=== PATIENT | male | born 1970 | race Caucasian/White ===

== ENCOUNTER 2022-07-15 16:18 | Inpatient (IN) | payer BC ==
[2022-07-15 18:03] LABS: Glucose,Whole Blood 145 mg/dL (70-110)
--- NOTE | 2022-07-15 18:06 | CT ---
EXAMINATION TYPE: CT brain wo con for TPA DATE OF EXAM: 07/15/2022 COMPARISON: None HISTORY: Neuro deficit, acute, stroke suspected CT DLP: 1236.6 mGycm Automated exposure control for dose reduction was used. Images of the brain obtained without contrast. Ventricles have normal size. There is no mass effect or midline shift. No sign of intracranial hemorr hope. The calvarium is intact. There is normal aeration of the mastoid sinuses. IMPRESSION: Negative unenhanced head CT scan.
[2022-07-15 18:26] LABS: INR 1.1 (<1.2); Partial Thromboplastin Time 27.7 sec (22.0-30.0); Prothrombin Time 11.5 sec (9.0-12.0)
[2022-07-15 18:28] LABS: Basophils # (A) 0.1 k/uL (0-0.2); Basophils % (A) 0 %; Eosinophils % (A) 0 %; HCT 44.6 % (39.0-53.0); HGB 15.5 gm/dL (13.0-17.5); Hyperchromasia Slight; Lymphocytes # (A) 1.6 k/uL (1.0-4.8); Lymphocytes % (A) 10 %; MCH 30.6 pg (25.0-35.0); MCHC 34.7 g/dL (31.0-37.0); Mean Platelet Volume 10.8; Monocytes # (A) 0.6 k/uL (0-1.0); Monocytes % (A) 4 %; Neutrophils # (A) 12.8 k/uL (1.3-7.7); Neutrophils % (A) 85 %; Platelet Count 152 k/uL (150-450); RBC 5.07 m/uL (4.30-5.90); RDW 13.3 % (11.5-15.5); WBC 15.2 k/uL (3.8-10.6)
--- NOTE | 2022-07-15 18:34 | CT ---
EXAMINATION TYPE: CT angio head neck DATE OF EXAM: 07/15/2022 COMPARISON: None HISTORY: Neuro deficit, acute, stroke suspected CT DLP: 665.7 mGycm Automated exposure control for dose reduction was used. CONTRAST: Performed with IV Contrast, patient injected with 65 mL of Isovue 370. Images obtained from the aortic arch to the vertex of the brain with the IV contrast. There are Three -D postprocessed images. There is left pleural effusion. There is airspace consolidation in the left midlung field. There is n ormal branching pattern of the great vessels on the aortic arch. There is arterial flow in both subcl lola arteries. There is arterial flow in the common internal and external carotid arteries bilateral ly. There is fairly wide patency of the carotid artery bifurcations. There is arterial flow in both v ertebral arteries. There is arterial flow in the vertebrobasilar artery system. No evidence of caroti d or vertebral artery aneurysm or dissection. No evidence of stenosis. There is arterial flow in the anterior middle and posterior cerebral arteries bilaterally. No mass ef fect. No evidence of intracranial aneurysm or neovascularity. There is normal enhancement of the veno us sinuses. No evidence of intracranial hemodynamic arterial stenosis. IMPRESSION: Negative CT angiogram of the neck. Negative CT angiogram of the brain. Left-sided extensive airspace pneumonia.
--- NOTE | 2022-07-15 18:35 | XR ---
EXAMINATION TYPE: XR chest 2V DATE OF EXAM: 07/15/2022 COMPARISON: NONE HISTORY: Altered mental status TECHNIQUE: 2 views FINDINGS: There is extensive infiltrates in the lower lung velez and more on the left side. There is some pulmonary vascular congestion. There are chest leads. IMPRESSION: Extensive pulmonary infiltrates that could be developing RDS. Congestive heart failure al so possible.
[2022-07-15] MEDS ORDERED: ACETAMINOPHEN TAB 500 MG TAB PO STA (18:39)
[2022-07-15 18:42] LABS: Albumin 3.4 g/dL (3.5-5.0); Calcium 7.6 mg/dL (8.4-10.2); Total Bilirubin 1.3 mg/dL (0.2-1.3); Total Protein 6.3 g/dL (6.3-8.2)
[2022-07-15] MEDS ORDERED: SODIUM CHLORIDE 0.9% 1,000 ML IV ONE (19:01)
[2022-07-15 19:15] LABS: Amorphous Sediment,Urine Occasional /hpf; Appearance,Urine Cloudy (Clear); Bacteria,Urine Rare /hpf; Bilirubin,Urine Negative (Negative); Blood,Urine Large (Negative); Color,Urine Yellow; Glucose,Urine (UA) Negative (Negative); Granular Casts,Urine 11 /lpf (0); Ketones,Urine Trace (Negative); Leukocyte Esterase,Urine Negative (Negative); Mucus,Urine Many /hpf; Nitrite,Urine Negative (Negative); Protein,Urine 2+ (Negative); RBC,Urine 5 /hpf (0-5); Specific Gravity,Urine 1.034 (1.001-1.035); Squamous Epithelial Cell,Urine 2 /hpf (0-4); Urobilinogen,Urine <2.0 mg/dL (<2.0); WBC,Urine 9 /hpf (0-5)
[2022-07-15 19:26] LABS: Amphetamine Screen,Urine Not Detected (NotDetected); Barbiturate Screen,Urine Not Detected (NotDetected); Benzodiazepines Screen,Urine Not Detected (NotDetected); Cocaine Screen,Urine Not Detected (NotDetected); Methadone Screen, Urine Not Detected (NotDetected); Opiate Screen,Urine Not Detected (NotDetected); Oxycodone Screen, Urine Not Detected (NotDetected); Phencyclidine Screen,Urine Not Detected (NotDetected); Tricyclic Antidepressant,Urine Not Detected (NotDetected); Urn Cannabinoid Scrn Not Detected (NotDetected)
[2022-07-15] MEDS ORDERED: KETOROLAC 15 MG/ML 1 ML VIAL IVP STA (20:02)
[2022-07-15] MEDS ORDERED: NALOXONE 0.4 MG/ML 1 ML VIAL IV PRN (21:37)
[2022-07-15] MEDS ORDERED: CEFEPIME 2 GM in SODIUM CHLORIDE 0.9% 100 ML IVPB STA (21:37)
--- NOTE | 2022-07-15 21:55 | ED ---
General Adult HPI - General Chief complaint: Altered Mental Status Stated complaint: AMS Time Seen by Provider: 07/15/22 16:30 Source: patient, EMS Mode of arrival: EMS Limitations: altered mental status - History of Present Illness Initial comments: This is a 52-year-old male who presents emergency department via EMS and police after was determined that the, police captain precinct was [place] on the [place] and he was swerving, not pulling lower immediately. 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 The patient was triaged however did not see the patient immediately but after approximately 50 minutes of the patient's sitting in the emergency department, I did have a with the patient and he was altered, ANO 2. The patient was having expressive aphasia and it was noted the patient's cell phone was locked out indicating that he did not know his own [place] to his phone several times. The patient himself but he was in [place] and did not understand that he was in [place]. The patient stated that he was driving home from work and it was only thing he knew. The patient was having difficulty with speaking but denied of any obvious deficits noted. The patient was overall poor story and cannot provide any further history at this time. It was however reported the patient was diagnosed with COVID-19 and was admitted to the hospital and was initially discharged. - Related Data Home Medications Medication Instructions Recorded Confirmed No Known Home Medications 07/15/22 07/15/22 Allergies Allergy/AdvReac Type Severity Reaction Status Date / Time No Known Allergies Allergy Verified 07/15/22 17:42 Review of Systems ROS Statement: Those systems with pertinent positive or pertinent negative responses have been documented in the HPI. ROS Other: All systems not noted in ROS Statement are negative. Past Medical History Past Medical History: No Reported History History of Any Multi-Drug Resistant Organisms: None Reported Past Surgical History: No Surgical Hx Reported Past Psychological History: No Psychological Hx Reported Smoking Status: Never smoker Past Alcohol Use History: None Reported Past Drug Use History: None Reported General Exam Limitations: altered mental status (ANOx2) General appearance: alert, in no apparent distress Head exam: Present: atraumatic, normocephalic, normal inspection Eye exam: Present: normal appearance, PERRL Pupils: Present: normal accommodation ENT exam: Present: normal exam, normal oropharynx, mucous membranes moist Neck exam: Present: normal inspection, full ROM Respiratory exam: Present: normal lung sounds bilaterally Cardiovascular Exam: Present: normal rhythm, tachycardia, normal heart sounds GI/Abdominal exam: Present: soft, normal bowel sounds Extremities exam: Present: normal inspection, full ROM Back exam: Present: normal inspection, full ROM Neurological exam: Present: alert, altered (ANOx2, expressive aphasia noted), CN II-XII intact Psychiatric exam: Present: normal affect, normal mood Skin exam: Present: warm, dry Course Vital Signs 07/15/22 07/15/22 07/15/22 16:20 17:45 18:00 Temperature 100.0 F H 103.1 F H 103.2 F H Pulse Rate 119 H 110 H 105 H Respiratory 22 18 24 Rate Blood Pressure 130/78 119/74 139/75 O2 Sat by Pulse 92 L 91 L 92 L Oximetry 07/15/22 07/15/22 07/15/22 18:45 19:00 19:15 Temperature Pulse Rate 125 H 117 H 114 H Respiratory 24 18 20 Rate Blood Pressure 135/74 127/68 118/76 O2 Sat by Pulse 92 L 92 L 94 L Oximetry 07/15/22 07/15/22 07/15/22 19:35 20:12 21:13 Temperature 102.9 F H 99.9 F H 98.0 F Pulse Rate 108 H 98 89 Respiratory 24 22 18 Rate Blood Pressure 130/66 116/72 106/69 O2 Sat by Pulse 93 L 93 L 94 L Oximetry EKG Findings - EKG Comments: EKG Findings:: In EKG was obtained and was interpreted by myself showing a rate of 111, ND interval 140, QRS duration of 102 and QTC of 335. This EKG showed showed sinus tachycardia without any ST segment elevation or depression noted. Medical Decision Making - Medical Decision Making Was pt. sent in by a medical professional or institution (, PA, BAILIFF, urgent care, hospital, or fci...) When possible be specific @ -No Did you speak to anyone other than the patient for history (EMS, parent, family, police, friend...)? What history was obtained from this source @ -Yes, EMS Did you review nursing and triage notes (agree or disagree)? Why? @ -I reviewed and agree with nursing and triage notes Were old charts reviewed (outside hosp., previous admission, EMS record, old EKG, old radiological studies, urgent care reports/EKG's, fci records)? Report findings @ -No old charts were reviewed Differential Diagnosis (chest pain, altered mental status, abdominal pain women, abdominal pain men, vaginal bleeding, weakness, fever, dyspnea, syncope, head ache, dizziness, GI bleed, back pain, seizure, CVA, palpatations, mental health)? @ -Acute CVA, alcohol intoxication, substance abuse EKG interpreted by me (3pts min.). @ -As above X-rays interpreted by me (1pt min.). @ -Chest x-ray was obtained and was interpreted by myself showing extensive pulmonary infiltrates that could be developing RDS or congestive heart failure is also possible. The patient only had intermittent mild shortness of breath but was not complaining of any shortness of breath on my evaluation. CT interpreted by me (1pt min.). @ -CT head and CTA of the head and neck per stroke protocol was obtained and showed no acute process and was negative. U/S interpreted by me (1pt. min.). @ -None done What testing was considered but not performed or refused? (CT, X-rays, U/S, labs)? Why? @ -None What meds were considered but not given or refused? Why? @ -None Did you discuss the management of the patient with other professionals (professionals i.e. , PA, BAILIFF, lab, RT, psych nurse, mental health social worker, lawyer real estate, teacher, chief medical officer, rn case management)? Give summary @ -Yes, admitting physician Was smoking cessation discussed for >3mins.? @ -No Was critical care preformed (if so, how long)? @ -Yes, see above Were there social determinants of health that impacted care today? How? (Homelessness, low income, unemployed, alcoholism, drug addiction, transportation, low edu. Level, literacy, decrease access to med. care, retirement, rehab)? @ -No Was there de-escalation of care discussed even if they declined (Discuss DNR or withdrawal of care, Hospice)? DNR status @ -No What co-morbidities impacted this encounter? (DM, HTN, Smoking, COPD, CAD, Cancer, CVA, ARF, Chemo, Hep., AIDS, mental health diagnosis, sleep apnea, morbid obesity)? @ -None Was patient admitted / discharged? Hospital course, mention meds given and route, prescriptions, significant lab abnormalities, going to OR and other pertinent info. @ -The patient was seen and evaluated. Initially on evaluation, the patient was altered and because it was no known last known normal, the patient had a code stroke called at 1742 with an initial NIH of 3. Workup was obtained and was negative for a stroke however the chest x-ray showed significant fluid on his lungs. The patient had initial cold waited infection last week and had an elevated fever. The patient also had elevated white blood cell count consistent with likely pneumonia. The patient was given antibiotics including vancomycin and cefepime for healthcare associated pneumonia as the patient was recently admitted for his COVID-19. The patient continued to remain stable however altered. The patient was accepted for admission by Dr. Wyatt as the patient did have a primary care physician. The neuro interventional list, Dr. Carvalho was contacted at [phone] and it was agreed that no TB would be given as there was no baseline known. The patient continued be closely monitored observed and both neurology and infectious disease will be placed on consult. The patient was told of this and was agreeable. The patient was admitted in stable condition. The patient also is known to have hyponatremia and hypokalemia and both were cor rected in the emergency department. Undiagnosed new problem with uncertain prognosis? @ -No Drug Therapy requiring intensive monitoring for toxicity (Heparin, Nitro, Insulin, Cardizem)? @ -No Were any procedures done? @ -No Diagnosis/symptom? @ -Altered mental status, rule out CVA Acute, or Chronic, or Acute on Chronic? @ -Acute Uncomplicated (without systemic symptoms) or Complicated (systemic symptoms)? @ -Complicated Side effects of treatment? @ -No Exacerbation, Progression, or Severe Exacerbation? @ -No Poses a threat to life or bodily function? How? (Chest pain, USA, DC, pneumonia, PE, COPD, DKA, ARF, appy, cholecystitis, CVA, Diverticulitis, Homicidal, Suicidal, threat to staff... and all critical care pts) @ -No Diagnosis/symptom? @ -Healthcare associated pneumonia Acute, or Chronic, or Acute on Chronic? @ -Acute Uncomplicated (without systemic symptoms) or Complicated (systemic symptoms)? @ -Complicated Side effects of treatment? @ -none Exacerbation, Progression, or Severe Exacerbation] @ -no Poses a threat to life or bodily function? @ -Yes, worsening infection Diagnosis/symptom? @ -Hypokalemia, hyponatremia Acute, or Chronic, or Acute on Chronic? @ -Acute Uncomplicated (without systemic symptoms) or Complicated (systemic symptoms)? @ -Uncomplicated Side effects of treatment? @ -none Exacerbation, Progression, or Severe Exacerbation] @ -no Poses a threat to life or bodily function? @ -Yes, can worsen and cause cardiac dysfunction - Lab Data Result diagrams: 07/15/22 17:43 07/15/22 17:43 Lab Results 07/15/22 07/15/22 07/15/22 Range/Units 17:43 17:43 17:43 WBC 15.2 H (3.8-10.6) k/uL RBC 5.07 (4.30-5.90) m/uL Hgb 15.5 (13.0-17.5) gm/dL Hct 44.6 (39.0-53.0) % MCV 88.0 (80.0-100.0) fL MCH 30.6 (25.0-35.0) pg MCHC 34.7 (31.0-37.0) g/dL RDW 13.3 (11.5-15.5) % Plt Count 152 (150-450) k/uL MPV 10.8 Neutrophils % 85 % Lymphocytes % 10 % Monocytes % 4 % Eosinophils % 0 % Basophils % 0 % Neutrophils # 12.8 H (1.3-7.7) k/uL Lymphocytes # 1.6 (1.0-4.8) k/uL Monocytes # 0.6 (0-1.0) k/uL Eosinophils # 0.0 (0-0.7) k/uL Basophils # 0.1 (0-0.2) k/uL Hyperchromasia Slight PT 11.5 (9.0-12.0) sec INR 1.1 (<1.2) APTT 27.7 (22.0-30.0) sec Sodium 126 L (137-145) mmol/L Potassium 3.0 L (3.5-5.1) mmol/L Chloride 92 L (98-107) mmol/L Carbon Dioxide 22 (22-30) mmol/L Anion Gap 12 mmol/L BUN 31 H (9-20) mg/dL Creatinine 1.52 H (0.66-1.25) mg/dL Est GFR (CKD-EPI)AfAm 61 (>60 ml/min/1.73 sqM) Est GFR (CKD-EPI)NonAf 53 (>60 ml/min/1.73 sqM) Glucose 136 H (74-99) mg/dL POC Glucose (mg/dL) (70-110) mg/dL POC Glu Cassandra Architect ID Calcium 7.6 L (8.4-10.2) mg/dL Total Bilirubin 1.3 (0.2-1.3) mg/dL AST 123 H (17-59) U/L ALT 61 H (4-49) U/L Alkaline Phosphatase 68 (38-126) U/L Troponin I (0.000-0.034) ng/mL Total Protein 6.3 (6.3-8.2) g/dL Albumin 3.4 L (3.5-5.0) g/dL Urine Color Urine Appearance (Clear) Urine pH (5.0-8.0) Ur Specific [place] (1.001-1.035) Urine Protein (Negative) Urine Glucose (UA) (Negative) Urine Ketones (Negative) Urine Blood (Negative) Urine Nitrite (Negative) Urine Bilirubin (Negative) Urine Urobilinogen (<2.0) mg/dL Ur Leukocyte Esterase (Negative) Urine RBC (0-5) /hpf Urine WBC (0-5) /hpf Ur Squamous Epith Cells (0-4) /hpf Amorphous Sediment (None) /hpf Urine Bacteria (None) /hpf Granular Casts (0) /lpf Urine Mucus (None) /hpf Urine Opiates Screen (NotDetected) Ur Oxycodone Screen (NotDetected) Urine Methadone Screen (NotDetected) Ur Propoxyphene Screen (NotDetected) Ur Barbiturates Screen (NotDetected) U Tricyclic Antidepress (NotDetected) Ur Phencyclidine Scrn (NotDetected) Ur Amphetamines Screen (NotDetected) U Methamphetamines Scrn (NotDetected) U Benzodiazepines Scrn (NotDetected) Urine Cocaine Screen (NotDetected) U Marijuana (THC) Screen (NotDetected) 07/15/22 07/15/22 07/15/22 Range/Units 17:43 17:51 18:00 WBC (3.8-10.6) k/uL RBC (4.30-5.90) m/uL Hgb (13.0-17.5) gm/dL Hct (39.0-53.0) % MCV (80.0-100.0) fL MCH (25.0-35.0) pg MCHC (31.0-37.0) g/dL RDW (11.5-15.5) % Plt Count (150-450) k/uL MPV Neutrophils % % Lymphocytes % % Monocytes % % Eosinophils % % Basophils % % Neutrophils # (1.3-7.7) k/uL Lymphocytes # (1.0-4.8) k/uL Monocytes # (0-1.0) k/uL Eosinophils # (0-0.7) k/uL Basophils # (0-0.2) k/uL Hyperchromasia PT (9.0-12.0) sec INR (<1.2) APTT (22.0-30.0) sec Sodium (137-145) mmol/L Potassium (3.5-5.1) mmol/L Chloride (98-107) mmol/L Carbon Dioxide (22-30) mmol/L Anion Gap mmol/L BUN (9-20) mg/dL Creatinine (0.66-1.25) mg/dL Est GFR (CKD-EPI)AfAm (>60 ml/min/1.73 sqM) Est GFR (CKD-EPI)NonAf (>60 ml/min/1.73 sqM) Glucose (74-99) mg/dL POC Glucose (mg/dL) 145 H (70-110) mg/dL POC Glu Cassandra Architect ID Purvi Guadarrama Calcium (8.4-10.2) mg/dL Total Bilirubin (0.2-1.3) mg/dL AST (17-59) U/L ALT (4-49) U/L Alkaline Phosphatase (38-126) U/L Troponin I 0.028 (0.000-0.034) ng/mL Total Protein (6.3-8.2) g/dL Albumin (3.5-5.0) g/dL Urine Color Yellow Urine Appearance Cloudy (Clear) Urine pH 6.0 (5.0-8.0) Ur Specific [place] 1.034 (1.001-1.035) Urine Protein 2+ H (Negative) Urine Glucose (UA) Negative (Negative) Urine Ketones Trace H (Negative) Urine Blood Large H (Negative) Urine Nitrite Negative (Negative) Urine Bilirubin Negative (Negative) Urine Urobilinogen <2.0 (<2.0) mg/dL Ur Leukocyte Esterase Negative (Negative) Urine RBC 5 (0-5) /hpf Urine WBC 9 H (0-5) /hpf Ur Squamous Epith Cells 2 (0-4) /hpf Amorphous Sediment Occasional H (None) /hpf Urine Bacteria Rare H (None) /hpf Granular Casts 11 (0) /lpf Urine Mucus Many H (None) /hpf Urine Opiates Screen Not Detected (NotDetected) Ur Oxycodone Screen Not Detected (NotDetected) Urine Methadone Screen Not Detected (NotDetected) Ur Propoxyphene Screen Not Detected (NotDetected) Ur Barbiturates Screen Not Detected (NotDetected) U Tricyclic Antidepress Not Detected (NotDetected) Ur Phencyclidine Scrn Not Detected (NotDetected) Ur Amphetamines Screen Not Detected (NotDetected) U Methamphetamines Scrn Not Detected (NotDetected) U Benzodiazepines Scrn Not Detected (NotDetected) Urine Cocaine Screen Not Detected (NotDetected) U Marijuana (THC) Screen Not Detected (NotDetected) Critical Care Time Critical Care Time: Yes Total Critical Care Time: 36 Disposition Clinical Impression: Altered mental status, CVA (cerebral vascular accident), HCAP (healthcare-a ssociated pneumonia), Hyponatremia, Hypokalemia Disposition: ADMITTED IP TO THIS [facility] Condition: Stable Is patient prescribed a controlled substance at d/c from ED?: No Referrals: None,Stated [Primary Care Provider] - 1-2 days Time of Disposition: 20:00 Decision to Admit Reason: Admit from EC Decision Date: 07/15/22 Decision Time: 20:00
[2022-07-15] MEDS: POTASSIUM CHLORIDE 10 MEQ in WATER FOR INJECTION 1 100ML.BAG IVPB SCH ×2 (22:22→23:32)
[2022-07-15] MEDS ORDERED: VANCOMYCIN 2,000 MG in SODIUM CHLORIDE 0.9% 500 ML 500 ML IVPB ONE (22:30)
[2022-07-16] MEDS ORDERED: VANCOMYCIN IV PER PHARMACY 1 EACH MISC MISCELLANE PRN (00:44)
[2022-07-16] MEDS: SODIUM CHLORIDE 0.9% 1,000 ML IV SCH ×3 (00:59→16:39)
[2022-07-16] MEDS: POTASSIUM CHLORIDE 10 MEQ in WATER FOR INJECTION 1 100ML.BAG IVPB SCH ×2 (01:05→02:03)
[2022-07-16 02:10] LABS: VBG PH 7.36 (7.31-7.41)
--- NOTE | 2022-07-16 03:21 | CT ---
EXAMINATION TYPE: CT chest wo con DATE OF EXAM: 07/16/2022 COMPARISON: None HISTORY: AMS. Covid. CT DLP: 490.4 mGycm Automated exposure control for dose reduction was used. Images obtained from the thoracic inlet to the diaphragm without contrast. There is extensive airspace consolidation in the left lung. There is left pleural effusion. There is airspace consolidation right lower lobe posteriorly. Heart is slightly enlarged. No pericardial effus ion. There is no mediastinal adenopathy. There are no hilar masses. The thoracic spine is intact. Sternum is intact. The upper abdominal soft tissues are intact. There is contrast in the kidneys from recent contrast ex am. IMPRESSION: Extensive airspace pulmonary infiltrates which are more on the left side. This could relate to RDS.
[2022-07-16] MEDS ORDERED: methylPREDNISolone SOD SUCCI 40 MG/ML 1 ML VIAL IV SCH (08:00)
[2022-07-16] MEDS ORDERED: BUDESONIDE 1 MG/2 ML NEBU INHALATION SCH (08:00)
[2022-07-16] MEDS ORDERED: CEFEPIME 2 GM in SODIUM CHLORIDE 0.9% 100 ML IVPB SCH (09:00)
[2022-07-16] MEDS: ACYCLOVIR SODIUM 800 MG in SODIUM CHLORIDE 0.9% 250 ML IVPB SCH ×2 (12:10→20:41)
--- NOTE | 2022-07-16 12:14 | P.CNNES ---
History of Present Illness Consult date: 07/16/22 Requesting physician: Bandar Tejeda Reason for Consult: AMS, CVA History of Present Illness: This is a 52-year-old gentleman who presented to the emergency department because of speech difficulty, shortness of breath with cough and fever. Some of the history is obtained from the EMR. Patient stated that for the past 1 week he has been having coughs as well as has been having fever and right frontal headache. He stated the headache was mild and it was over the right frontal region but he could not describe the other type of headache and denies any radiation. Denies any photophobia, phonophobia, nausea or vomiting. He denies any visual disturbance. He denies any neck pain. Yesterday he noticed that the he's having some speech difficulty. Currently he denies of any headache. He denies any sick contacts. Denies any rash. Denies any focal weakness, numbness. He feels his gait is unsteady walking. Denies any head trauma. Denies any seizure like activities that he is aware of. Per the ED note and mentioned, is seems to the post officer was following the patient on the express[place] and the patient was swerving and not pulling immediately. In and was felt to the patient was altered. Was felt the patient was having expressive aphasia. According to the ED the patient was reported the patient was diagnosed with Covid and was admitted to the hospital was initially discharged. According to patient he is not aware that he had Covid-19 recently and last Covid-19 infection was about a year ago. He stated that he took a home test and it was negative for COVID-19. She denies history of stroke in the past. I was notified very later by his nurse that patient is homosexual which he he wanted to share with us if helps with work-up. Some of the workup during his hospital visit consisted of: Patient has been febrile on presentation with a T-max of 103.2 He's tachycardic highest of 125 but currently the its 88. Pulse ox recorded the lowest was 91% he's been tachypneic of highest of 29. White blood cell is 15.2 thousand and predominantly neutrophilic Sodium is 126, potassium 3.0, BUN 31 and a creatinine is 1.52, initial serum glucose is 136, calcium 7.6 AST of 123 and ALT of 61. Urine drug screen is negative Code stroke was activated by the ED team. Per the ED the NIH stroke scale was a 3. CT of the head is reported as negative unenhanced head CT scan CT angiography of the head and neck was reported as negative. Left-sided extensive air space pneumonia. Per ED they spoke with stroke attending (Dr. Carvalho) and no IV TPA since unknown last normal state. And it was felt the risk outweighed the benefit of given TPA CT of chest is reported as extensive air space pulmonary infiltrates was are more on the left side. This could relate to the RDS. Review of Systems Review of system: The 12 point system was reviewed and apparent positive and negative per HPI. Past Medical History Past Medical History: No Reported History History of Any Multi-Drug Resistant Organisms: None Reported Past Surgical History: No Surgical Hx Reported Past Psychological History: No Psychological Hx Reported Smoking Status: Never smoker Past Alcohol Use History: None Reported Past Drug Use History: None Reported - Past Family History Brother(s) Family Medical History: Cancer Mother Additional Family Medical History / Comment(s): CABG Medications and Allergies Home Medications Medication Instructions Recorded Confirmed Type No Known Home Medications 07/15/22 07/15/22 History Allergies Allergy/AdvReac Type Severity Reaction Status Date / Time No Known Allergies Allergy Verified 07/15/22 17:42 Physical Examination - Vital Signs Vital Signs: Vital Signs Temp Pulse Pulse Resp BP BP Pulse Ox 07/16/22 11:05 99 25 H 123/81 94 L 07/16/22 10:19 98.9 F 29 H 07/16/22 08:02 92 26 H 07/16/22 07:46 90 26 H 112/75 97 07/16/22 07:36 88 16 07/16/22 07:29 87 16 97 07/16/22 05:30 72 18 114/74 95 07/16/22 04:30 78 18 116/79 94 L 07/16/22 03:00 77 18 115/80 97 07/16/22 01:00 76 18 121/81 95 07/16/22 00:18 78 18 114/81 98 07/15/22 23:36 97.9 F 79 20 115/80 94 L 07/15/22 22:25 80 17 119/77 94 L 07/15/22 21:13 98.0 F 89 18 106/69 94 L 07/15/22 20:12 99.9 F H 98 22 116/72 93 L 07/15/22 19:35 102.9 F H 108 H 24 130/66 93 L 07/15/22 19:15 114 H 20 118/76 94 L 07/15/22 19:00 117 H 18 127/68 92 L 07/15/22 18:45 125 H 24 135/74 92 L 07/15/22 18:00 103.2 F H 105 H 24 139/75 92 L 07/15/22 17:45 103.1 F H 110 H 18 119/74 91 L 07/15/22 16:20 100.0 F H 119 H 22 130/78 92 L Intake and Output 07/15/22 07/16/22 07/16/22 22:59 06:59 14:59 Intake Total 540 Balance 540 Intake: Oral 540 Other: Voiding Method Toilet # Bowel Movements 1 Weight 90.718 kg 82.72 kg GENERAL: The patient is lying in bed and is not in acute distress. CHEST: The heart rate is regular rate rhythm. No murmurs to auscultation. LUNG: Wheezing throughout and that is without even without ausculation. Is tachypneic and appear short of breath. ABDOMEN/GI: Bowel sounds present in all 4 quadrants. No tenderness to palpation throughout. NEUROLOGICAL: Higher mental function: The patient is awake, alert, oriented to self, place and time. Patient is following simple commands. Is having wording finding difficulty. Difficulty with repetition. No neglect. Cranial nerves: The pupils are round, equal and reactive to light and accommodation. Visual velez are full to confrontation throughout. Extraocular movement is intact no nystagmus is noted. Facial sensation is normal to touch throughout. The facial strength is normal throughout. Hearing is normal bilaterally to hand rub. Tongue is midline and moved [id number] without any difficulty. At time has nasal toned. Shoulder shrug is normal bilaterally. Motor: Gait is attempted but very unsteady walking. The strength is 5 over 5 throughout. Normal tone and bulk. Cerebellum: Normal finger to nose bilaterally. Sensation: Sensation is normal to touch throughout. Reflexes (right/left): 2+ throughout. Plantars are downgoing bilaterally. Results - Laboratory Findings CBC and BMP: 07/15/22 17:43 07/16/22 16:15 Abnormal Lab Findings: Abnormal Labs 07/15/22 07/15/22 07/15/22 17:43 17:43 17:51 WBC 15.2 H Neutrophils # 12.8 H VBG HCO3 Sodium 126 L Potassium 3.0 L Chloride 92 L BUN 31 H Creatinine 1.52 H Glucose 136 H POC Glucose (mg/dL) Calcium 7.6 L AST 123 H ALT 61 H Albumin 3.4 L Urine Protein 2+ H Urine Ketones Trace H Urine Blood Large H Urine WBC 9 H Amorphous Sediment Occasional H Urine Bacteria Rare H Urine Mucus Many H 07/15/22 07/16/22 18:00 01:37 WBC Neutrophils # VBG HCO3 21 L Sodium Potassium Chloride BUN Creatinine Glucose POC Glucose (mg/dL) 145 H Calcium AST ALT Albumin Urine Protein Urine Ketones Urine Blood Urine WBC Amorphous Sediment Urine Bacteria Urine Mucus Assessment and Plan Assessment: Expressive aphasia for past two days with unsteady gait with headache for past one week: Rule out stroke vs brain mass vs ?due to underlying central infections. Currently headache has resolved Fever, leukocytosis with cough for past one week: Appears underlying pneumonia. Rule out central infection. Encephalopathy due to sepsis and appears underlying pneumonia. Also patient has underlying metabolic encephalopathy. Hyponatremia Hypoactive Leamy Acute kidney insufficiency that AST slightly elevated and ALT Plan: I ordered MRI of the brain with and without stat In the ED the patient was started on cefepime 2 g every 12 hours as well as vancomycin. I stopped at the cefepime and change it to ceftriaxone 2 g every 12 hours, continue vancomycin and I started the patient on acyclovir 10mg/kg every 8 hours for meninoencephalitis coverarage. I consulted pain specialist for lumbar puncture. I ordered a routine EEG because of his confusion. Ordered TSH, ammonia level I ordered HIV test and RPR to rule out any infection that can result to his condition and I have notified patient and he is in agreement of pursuing them. I will not start the patient on antiplatelets until MRI Brain is back to assess if truly stroke or other central process. If stroke will get rest of stroke work-up. Consulted PT, OT and [employer]. Neuro checks On cardiac monitoring I.D. is consulted. I recommend patient to be transferred to ICU for close monitoring with pulmonary team consulted. Patient is tachypneic and very short of breath, hypoxic. I spoke with ICU team regarding this patient. Will defer the rest of medical management to primary team. The plan is discussed in detailed with patient and his nurse. I went back and had lengthy discussion with patient's family members who are at bedside. Thank you for consultation Time spent on case is 35 minutes: Going over history, reviewing labs/imaging and going over plan. Time with Patient: Greater than 30
--- NOTE | 2022-07-16 14:21 | MR ---
EXAMINATION TYPE: MR brain wo/w con DATE OF EXAM: 07/16/2022 1:28 PM CLINICAL INDICATION:Male, 52 years old with history of altered mental status; COMPARISON: Brain 07/15/2022 TECHNIQUE: Multi planar, multi sequence imaging was performed through the brain including: T1, T2, In version recovery, susceptibility weighted imaging and gradient echo imaging and Diffusion weighted im aging. The patient was then given intravenous contrast and multi planar, T1 fat-saturation images wer e obtained. IV Contrast: 8 cc Gadavist FINDINGS: The coreas-white junctions, ventricular system, basal cisterns appear unremarkable. Diffusion-weighted imaging shows no evidence of restricted diffusion to suggest acute/subacute infarct. Intracranial art erial flow voids are maintained. Midline structures show no abnormality. Scattered foci of high T2 si gnal intensity are seen within the periventricular white matter and deep white matter with a more etta e focal asymmetric left parietal lobe region. The susceptibility weighted images do not reveal any ev idence for micro-hemorrhage. After administration of gadolinium, no abnormal enhancement is seen. The bone marrow signal is within normal limits. Paranasal sinuses and mastoid air cells: Mild scattered paranasal sinus disease. Visualized orbits: Orbital contents are intact. IMPRESSION: 1. No evidence of intracranial mass, acute/subacute infarct, or abnormal enhancement. 2. Nonspecific white matter changes with a more asymmetric left parietal region area.
[2022-07-16 14:23] LABS: T4, Free (Free Thyroxine) 1.95 ng/dL (0.78-2.19)
--- NOTE | 2022-07-16 14:33 | P.CONS ---
History of Present Illness - Reason for Consult Consult date: 07/16/22 - History of Present Illness Patient is a 52-year-old male who was brought into the ER via EMS and police after apparently the patient was noticed to be altered mentally when he was stopped by the transit authority police officer patient apparently was followed by the transit authority police officer on the expressway as the patient was receiving and not pulling immediately but no accident has happened, patient on ER evaluation mention that the patient was on her way home from work and he thought he was in [place] not sure what he was doing in [place] on, when asked specifically for the patient and he denies any headache to me or URI symptoms has been complaining of some shortness of breath he was noticed to have some cough or no specifically he denied it or any sputum production no nausea no vomiting no abdominal pain or any diarrhea The patient on presentation to the hospital did have a fever of 103.1F, patient is afebrile this morning the patient was mildly hypoxic with O2 sats of 92% is currently 94% on 3 L nasal cannula, patient did have white of 15.2 with a left shift, did have elevated BUN and creatinine potassium was slightly low did have elevated liver enzymes, urine has been negative, patient urine drug screen was n egative, patient did have a negative influenza RSV and covid PCR, patient did have a negative CT of the brain for any bleeding chest x-ray with extensive pulmonary infiltrate that was confirmed on CT of the chest patient did receive cefepime and vancomycin in the ER last night patient has been evaluated by neurologist before meals and the patient be started on Rocephin and vancomycin and acyclovir apparently planning for LP, patient overall elevated good historian so most information has been instructed from review the chart Past Medical History Past Medical History: No Reported History History of Any Multi-Drug Resistant Organisms: None Reported Past Surgical History: No Surgical Hx Reported Past Psychological History: No Psychological Hx Reported Smoking Status: Never smoker Past Alcohol Use History: None Reported Past Drug Use History: None Reported Medications and Allergies Home Medications Medication Instructions Recorded Confirmed Type No Known Home Medications 07/15/22 07/15/22 History Allergies Allergy/AdvReac Type Severity Reaction Status Date / Time No Known Allergies Allergy Verified 07/15/22 17:42 Physical Exam Vitals: Vital Signs Temp Pulse Pulse Resp BP BP Pulse Ox 07/16/22 11:05 99 25 H 123/81 94 L 07/16/22 10:19 98.9 F 29 H 07/16/22 08:02 92 26 H 07/16/22 07:46 90 26 H 112/75 97 07/16/22 07:36 88 16 07/16/22 07:29 87 16 97 07/16/22 05:30 72 18 114/74 95 07/16/22 04:30 78 18 116/79 94 L 07/16/22 03:00 77 18 115/80 97 07/16/22 01:00 76 18 121/81 95 07/16/22 00:18 78 18 114/81 98 07/15/22 23:36 97.9 F 79 20 115/80 94 L 07/15/22 22:25 80 17 119/77 94 L 07/15/22 21:13 98.0 F 89 18 106/69 94 L 07/15/22 20:12 99.9 F H 98 22 116/72 93 L 07/15/22 19:35 102.9 F H 108 H 24 130/66 93 L 07/15/22 19:15 114 H 20 118/76 94 L 07/15/22 19:00 117 H 18 127/68 92 L 07/15/22 18:45 125 H 24 135/74 92 L 07/15/22 18:00 103.2 F H 105 H 24 139/75 92 L 07/15/22 17:45 103.1 F H 110 H 18 119/74 91 L 07/15/22 16:20 100.0 F H 119 H 22 130/78 92 L Intake and Output 07/15/22 07/16/22 07/16/22 22:59 06:59 14:59 Intake Total 540 Balance 540 Intake: Oral 540 Other: Voiding Method Toilet # Bowel Movements 1 Weight 90.718 kg 82.72 kg Results CBC & Chem 7: 07/15/22 17:43 07/15/22 17:43 Labs: Abnormal Lab Results - Last 24 Hours (Table) 07/15/22 07/15/22 07/15/22 Range/Units 17:43 17:43 17:51 WBC 15.2 H (3.8-10.6) k/uL Neutrophils # 12.8 H (1.3-7.7) k/uL VBG HCO3 (24-28) mmol/L Sodium 126 L (137-145) mmol/L Potassium 3.0 L (3.5-5.1) mmol/L Chloride 92 L (98-107) mmol/L BUN 31 H (9-20) mg/dL Creatinine 1.52 H (0.66-1.25) mg/dL Glucose 136 H (74-99) mg/dL POC Glucose (mg/dL) (70-110) mg/dL Calcium 7.6 L (8.4-10.2) mg/dL AST 123 H (17-59) U/L ALT 61 H (4-49) U/L Albumin 3.4 L (3.5-5.0) g/dL Urine Protein 2+ H (Negative) Urine Ketones Trace H (Negative) Urine Blood Large H (Negative) Urine WBC 9 H (0-5) /hpf Amorphous Sediment Occasional H (None) /hpf Urine Bacteria Rare H (None) /hpf Urine Mucus Many H (None) /hpf 07/15/22 07/16/22 Range/Units 18:00 01:37 WBC (3.8-10.6) k/uL Neutrophils # (1.3-7.7) k/uL VBG HCO3 21 L (24-28) mmol/L Sodium (137-145) mmol/L Potassium (3.5-5.1) mmol/L Chloride (98-107) mmol/L BUN (9-20) mg/dL Creatinine (0.66-1.25) mg/dL Glucose (74-99) mg/dL POC Glucose (mg/dL) 145 H (70-110) mg/dL Calcium (8.4-10.2) mg/dL AST (17-59) U/L ALT (4-49) U/L Albumin (3.5-5.0) g/dL Urine Protein (Negative) Urine Ketones (Negative) Urine Blood (Negative) Urine WBC (0-5) /hpf Amorphous Sediment (None) /hpf Urine Bacteria (None) /hpf Urine Mucus (None) /hpf Assessment and Plan Plan: 1patient is in the hospital mental status changes in this patient who did have evidence of fever and elevated white count patient currently denies having any headache to me however he didn't mention it to the neurologist underlying me ningitis and encephalitis is to be ruled out in this patient also have evidence of extensive pneumonia and will need to cover for the gram-positive as well as gram-negative pathogen 2patient has already received antibiotics and would not be candidate for dexamethasone. 3we'll wait for the LP to be finalized, CSF should be sent for cell count differential glucose protein and HSV DNA by PCR 4we will check his inflammatory markers and obtain a sputum for Gram stain and culture 5patient to continue with the Rocephin and vancomycin and acyclovir while waiting for the workup to be completed We will follow on clinical condition and cultures to further adjust medication if needed Thank you for this consultation will follow this patient with you Time with Patient: Greater than 30
[2022-07-16 14:44] LABS: Glucose,Whole Blood 117 mg/dL (70-110)
[2022-07-16] MEDS ORDERED: VANCOMYCIN 1,750 MG in SODIUM CHLORIDE 0.9% 500 ML 500 ML IVPB SCH (15:00)
--- NOTE | 2022-07-16 15:12 | P.CNPUL ---
History of Present Illness Consult date: 07/16/22 Requesting physician: Kristopher Wyatt Reason for consult: dyspnea, cough, hypoxemia, pneumonia, abnormal CXR/CT Chief complaint: Headache, fever, cough, shortness of breath. History of present illness: Pulmonary consult dated 07/16/2022. This is a 52-year-old male who presents to the emergency department, via EMS, on July 15. He apparently came in because of mental status changes. The pat [place]a apparently was driving his car, and apparently was swerving, and was being followed by the police. The patient apparently eventually pulled over, was determined to be altered, and was brought to the emergency room for further evaluation. The patient was noted to have some speech disturbance, temperature elevation, headache, and generally just not feeling well. He also noted dry cough, and was short of breath. The symptoms apparently progress through the night, and into the morning. I was called by the neurologist, who was concerned that the patient was being admitted to the general medical floor, and thought the patient should be admitted to the intensive care unit. Initially, they thought the patient may be a code stroke, but, the neurologist saw the patient may have some sort of PUNCHBOARD STUFFER infection, or encephalopathy secondary to an infection elsewhere. I saw the patient in the intensive care unit, room 258. He was on 3 L of oxygen. He is getting saline at 130 mL an hour. The patient apparently did not have any history including diabetes, hypertension, or hyperlipidemia. The patient's on nonsmoker. He states he takes no medications at home on a regular basis. He does not take any prescription medications. White count 15.2, with a normal hemoglobin, hematocrit, and platelet count. Coli generation studies were normal. Venous blood gases showed a pCO2 of 39 and a pH is 7.36. Sodium 126, potassium 3, chloride 92, CO2 22, normal anion gap, BUN 31, and creatinine 1.52. Glucose was normal. Calcium 7.6. AST 123 ALT 61 thyroid function were normal. Drug screen was negative. Testing for influenza, RSV, and coronavirus, were all negative. Brain CT was negative. It was not enhanced with contrast. The CT angiogram was negative for any vascular abnormality. The patient's chest x-ray showed extensive pulmonary infiltrates, left greater than right. The patient's chest CT, again showed extensive airspace infiltrates, more so on the left. The MRI of the brain showed nonspecific white matter changes with a more asymmetric left parietal region area. Review of Systems REVIEW OF SYSTEMS: CONSTITUTIONAL: Fever. NEUROLOGIC: Slurred speech, difficulty speaking. HEENT: Right-sided headache. CARDIAC: [Negative.] PULMONARY: Cough/shortness of breath. GI: [Negative.] : [Negative.] RHEUMATOLOGIC: [ Negative.] IMMUNOLOGIC: [ Negative.] ENDOCRINE: [Negative. ] DERMATOLOGIC: [Negative.] Past Medical History Past Medical History: No Reported History History of Any Multi-Drug Resistant Organisms: None Reported Past Surgical History: No Surgical Hx Reported Past Psychological History: No Psychological Hx Reported Smoking Status: Never smoker Past Alcohol Use History: None Reported Past Drug Use History: None Reported Medications and Allergies Home Medications Medication Instructions Recorded Confirmed Type No Known Home Medications 07/15/22 07/15/22 History Allergies Allergy/AdvReac Type Severity Reaction Status Date / Time No Known Allergies Allergy Verified 07/15/22 17:42 Physical Exam Osteopathic Statement: *. No significant issues noted on an osteopathic structural exam other than those noted in the History and Physical/Consult. Vitals: Vital Signs Temp Pulse Pulse Resp BP BP Pulse Ox 07/16/22 11:05 99 25 H 123/81 94 L 07/16/22 10:19 98.9 F 29 H 07/16/22 08:02 92 26 H 07/16/22 07:46 90 26 H 112/75 97 07/16/22 07:36 88 16 07/16/22 07:29 87 16 97 07/16/22 05:30 72 18 114/74 95 07/16/22 04:30 78 18 116/79 94 L 07/16/22 03:00 77 18 115/80 97 07/16/22 01:00 76 18 121/81 95 07/16/22 00:18 78 18 114/81 98 07/15/22 23:36 97.9 F 79 20 115/80 94 L 07/15/22 22:25 80 17 119/77 94 L 07/15/22 21:13 98.0 F 89 18 106/69 94 L 07/15/22 20:12 99.9 F H 98 22 116/72 93 L 07/15/22 19:35 102.9 F H 108 H 24 130/66 93 L 07/15/22 19:15 114 H 20 118/76 94 L 07/15/22 19:00 117 H 18 127/68 92 L 07/15/22 18:45 125 H 24 135/74 92 L 07/15/22 18:00 103.2 F H 105 H 24 139/75 92 L 07/15/22 17:45 103.1 F H 110 H 18 119/74 91 L 07/15/22 16:20 100.0 F H 119 H 22 130/78 92 L Intake and Output 07/15/22 07/16/22 07/16/22 22:59 06:59 14:59 Intake Total 540 Balance 540 Intake: Oral 540 Other: Voiding Method Toilet # Bowel Movements 1 Weight 90.718 kg 82.72 kg No acute distress, oriented 3. No respiratory distress. Currently on 3 L. Saturations are 98%. HEENT examination is grossly unremarkable. Neck supple. Full range of motion. No adenopathy thyromegaly or neck vein distention. Cardiovascular examination reveals regular rhythm rate. S1-S2 normal. No S3 or S4. No discernible murmur noted. Heart rate 99 bpm. Lungs reveal scattered rhonchi and occasional crackles. Breath sounds equal. No wheezes. Saturations 97%. Abdomen soft bowel sounds are heard. No masses or tenderness. Extremities are intact. No cyanosis clubbing or edema. Skin is without rash or lesion. Neurologic examination is brief but nonfocal. Results - Laboratory Findings CBC and BMP: 07/15/22 17:43 07/15/22 17:43 PT/INR, D-dimer PT 11.5 sec (9.0-12.0) 07/15/22 17:43 INR 1.1 (<1.2) 07/15/22 17:43 Abnormal lab findings: Abnormal Labs 07/15/22 07/15/22 07/15/22 17:43 17:43 17:51 WBC 15.2 H Neutrophils # 12.8 H VBG HCO3 Sodium 126 L Potassium 3.0 L Chloride 92 L BUN 31 H Creatinine 1.52 H Glucose 136 H POC Glucose (mg/dL) Calcium 7.6 L AST 123 H ALT 61 H Albumin 3.4 L TSH Urine Protein 2+ H Urine Ketones Trace H Urine Blood Large H Urine WBC 9 H Amorphous Sediment Occasional H Urine Bacteria Rare H Urine Mucus Many H 07/15/22 07/16/22 07/16/22 18:00 01:37 12:23 WBC Neutrophils # VBG HCO3 21 L Sodium Potassium Chloride BUN Creatinine Glucose POC Glucose (mg/dL) 145 H Calcium AST ALT Albumin TSH 0.370 L Urine Protein Urine Ketones Urine Blood Urine WBC Amorphous Sediment Urine Bacteria Urine Mucus 07/16/22 14:42 WBC Neutrophils # VBG HCO3 Sodium Potassium Chloride BUN Creatinine Glucose POC Glucose (mg/dL) 117 H Calcium AST ALT Albumin TSH Urine Protein Urine Ketones Urine Blood Urine WBC Amorphous Sediment Urine Bacteria Urine Mucus - Diagnostic Findings Chest x-ray: image reviewed CT scan - chest: image reviewed Assessment and Plan Assessment: Acute mental status changes, with expressive aphasia, secondary to primary PUNCHBOARD STUFFER infection, versus encephalopathy from the patient's pneumonia. Bilateral pneumonia, left greater than right. Severe right-sided headache. Hyponatremia and hypokalemia. Mild renal insufficiency. Plan: Plan dated 07/16/2022. The patient is admitted to the ICU for further monitoring and management. The patient will be seen by infectious diseases. He has been seen by neurology. Additional recommendations and suggestions are forthcoming. Medications are reviewed. No need for Pulmicort at this time. The patient's currently on vancomycin, and Rocephin, and acyclovir. The patient's computed tomography scan of the brain showed nothing acute. MRI of the brain likewise showed nothing acute. The patient will have a lumbar puncture later today. We will continue to follow and make recommendations along the way. Time with Patient: Greater than 30
[2022-07-16] MEDS: VANCOMYCIN 1,500 MG in SODIUM CHLORIDE 0.9% 500 ML 500 ML IVPB SCH (15:48)
[2022-07-16 16:49] LABS: Calcium 7.5 mg/dL (8.4-10.2); Potassium 3.3 mmol/L (3.5-5.1)
--- NOTE | 2022-07-16 16:54 | P.PN ---
Progress Note - Text Progress Note Date: 07/16/22 52-year-old L for lumbar puncture. Ordered foraltered mental status. Coagulo pathies: Coagulation studies are normal. No antiplatelet drugs. No home meds. No blood thinners in hospital Medications:Nothing significant. Consent obtained and confirmed per patient. Official consent obtained by nurse. WBCs 15.2 platelets 152 PTT 27.7 INR 1.1. Imaging of head shows no mass effect sodium 126 potassium 3 creatinine 1.52 increased LFTs Timeout performed Sterile protocol was used throughout procedure. L3 4 was identified and patient sitting off edge of bed. Chlorhexidine 2 was used to clean the patient's back. Lidocaine 1% 2 mL was used as local and was infiltrated. Spinal needle 20- gauge 3-1/2 inches was used in one attempt. CSF was obtained. No heme. Specimens collected 4-2 mL each. Needle was withdrawn and Band-Aid applied. Patient tolerated procedure well without complication. Stable. Left and care of ICU nurse.
[2022-07-16 17:31] LABS: Glucose,CSF 69 mg/dL (40-70); Total Protein,CSF 79 mg/dL (12-60)
[2022-07-16 18:14] LABS: C Reactive Protein 37.8 mg/dL (<1.0)
[2022-07-16] MEDS ORDERED: Potassium Replacement Protocol 1 EACH MISC MISCELLANE PRN (18:29)
[2022-07-16 18:40] LABS: Appearance,CSF Clear; CSF Tube Number 4; Nucleated Cells, CSF 2 u/L (0-5); Red Blood Cell,CSF 1 u/L (0-10)
[2022-07-16] MEDS: POTASSIUM CHLORIDE ER 20 MEQ TAB.ER PO SCH ×2 (19:52→20:49)
[2022-07-16] MEDS: IPRATROPIUM-ALBUTEROL 3 ML NEB INHALATION PRN (20:07)
--- NOTE | 2022-07-16 22:44 | EEG ---
ELECTROENCEPHALOGRAM REPORT CLINICAL HISTORY: This is a 52-year-old gentleman with altered mental status. The video EEG is obtained to evaluate for seizure epileptiform activity. RELEVANT MEDICATION: The patient is not on any antiepileptic drugs. EEG TYPE: A routine 21-channel EEG is performed with video using the 10/20 electrode placement system. DESCRIPTION: Wakefulness is only obtained. There was some limitation with this testing because of artifact. From the limitation, the background has very low voltage and has 8 to 8.5 hertz activity that is poorly modulated, poorly sustained. There is no physiological stage 2 sleep architecture. There is no focal slowing. There is artifact during this study. Interictal and ictal is none. ACTIVATION PROCEDURE: Photic stimulation did evoke a posterior driving response at multiple low flash frequencies. No abnormalities noted during the photic stimulation. Hyperventilation is not performed. CLINICAL INTERPRETATION: This is somewhat limited routine EEG because of artifact. The background is normal and there is no focal slowing, epileptiform discharge, or seizure on the EEG. Clinical correlation is recommended. PRABHAKAR / COLEENN: [id number] / JIAN
[2022-07-17] MEDS: SODIUM CHLORIDE 0.9% 1,000 ML IV SCH ×4 (00:30→18:30)
[2022-07-17] MEDS: ACYCLOVIR SODIUM 800 MG in SODIUM CHLORIDE 0.9% 250 ML IVPB SCH ×2 (03:36→11:31)
[2022-07-17] MEDS: VANCOMYCIN 1,500 MG in SODIUM CHLORIDE 0.9% 500 ML 500 ML IVPB SCH (05:18)
[2022-07-17 06:06] LABS: Basophils % (A) 0 %; Eosinophils % (A) 0 %; HCT 39.4 % (39.0-53.0); HGB 13.3 gm/dL (13.0-17.5); Lymphocytes # (A) 1.7 k/uL (1.0-4.8); Lymphocytes % (A) 11 %; MCH 30.4 pg (25.0-35.0); MCHC 33.7 g/dL (31.0-37.0); Mean Platelet Volume 10.7; Monocytes # (A) 0.5 k/uL (0-1.0); Monocytes % (A) 4 %; Neutrophils # (A) 12.7 k/uL (1.3-7.7); Neutrophils % (A) 84 %; Platelet Count 145 k/uL (150-450); RBC 4.38 m/uL (4.30-5.90); RDW 13.9 % (11.5-15.5)
[2022-07-17 06:28] LABS: ALT 50 U/L (4-49); AST 66 U/L (17-59); African American GFR (CKD) >90 (>60 ml/min/1.73 sqM); Albumin 2.5 g/dL (3.5-5.0); Alkaline Phosphatase 71 U/L (38-126); Anion Gap 5 mmol/L; Blood Urea Nitrogen 23 mg/dL (9-20); Carbon Dioxide 22 mmol/L (22-30); Chloride 101 mmol/L (98-107); Glucose 119 mg/dL (74-99); Non-African American GFR(CKD) >90 (>60 ml/min/1.73 sqM); Potassium 3.2 mmol/L (3.5-5.1); Sodium 128 mmol/L (137-145); Total Bilirubin 0.7 mg/dL (0.2-1.3); Total Protein 4.9 g/dL (6.3-8.2)
[2022-07-17] MEDS: POTASSIUM CHLORIDE ER 20 MEQ TAB.ER PO SCH ×4 (06:37→14:42)
--- NOTE | 2022-07-17 08:41 | XR ---
EXAMINATION TYPE: XR chest 1V portable DATE OF EXAM: 07/17/2022 8:08 AM COMPARISON: Chest radiograph from two days prior. TECHNIQUE: XR chest 1V portable Portable AP radiograph of the chest. CLINICAL INDICATION:Male, 52 years old with history of SOB, high RR; FINDINGS: Lungs/Pleura: Improved aeration of lungs on today's exam with persistent airspace opacities scattered throughout the lungs. No evidence of pneumothorax or large pleural effusion. Pulmonary vascularity: Unremarkable. Heart/mediastinum: Cardiomediastinal silhouette is partially obscured due to overlying and adjacent o pacities. Musculoskeletal: No acute osseous pathology. Other findings: None IMPRESSION: Mildly improved aeration of the lungs with persistent bilateral airspace opacities
[2022-07-17] MEDS: FAMOTIDINE 20 MG TAB PO SCH (09:40)
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
[2022-07-17] MEDS: IPRATROPIUM-ALBUTEROL 3 ML NEB INHALATION PRN (10:32)
[2022-07-17] MEDS: IPRATROPIUM-ALBUTEROL 3 ML NEB INHALATION SCH ×3 (11:30→19:22)
[2022-07-17] MEDS: ACETAMINOPHEN TAB 325 MG TAB PO PRN ×2 (12:32→18:29)
[2022-07-17] MEDS: ALPRAZolam 0.5 MG TAB PO PRN ×2 (13:27→17:44)
[2022-07-17 13:45] LABS: HIV 2 AB Non-Reactive (Non-Reactive); HIV AB P24 Non-Reactive (Non-Reactive); HIV P24 AG Non-Reactive (Non-Reactive)
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
--- NOTE | 2022-07-17 14:36 | P.PN ---
Subjective Progress Note Date: 07/17/22 According to patient he feels better today compared to yesterday. It seems she continues to have respiratory distress as well as tachypnea and per the nurse she's having at times desaturation of his pulse ox. His speech he feels is doing better. Denies any headache, focal weakness, numbness, visual disturbance. Denies of any nausea vomiting. He continues to be spike in fever of 101.9. Objective - Vital Signs Vital signs: Vital Signs Temp 101.9 F H 07/17/22 12:00 Pulse 100 07/17/22 14:00 Resp 34 H 07/17/22 14:00 BP 119/69 07/17/22 14:00 Pulse Ox 92 L 07/17/22 14:00 FiO2 Intake & Output 07/16/22 07/17/22 07/17/22 18:59 06:59 18:59 Intake Total 1300 1770 550 Output Total 480 1100 Balance 820 670 550 Weight 82.72 kg 88.3 kg Intake: IV 760 870 550 Sodium Chloride 0.9% 1, 260 870 50 000 ml @ 130 mls/hr IV . Q7H42M [facility] Rx#:[id number] Vancomycin 1,500 mg In 500 500 Sodium Chloride 0.9% 500 ml 500 ml @ 167 mls/hr IVPB Q16H [facility] Rx#: [id number] Intake, IV Titration 300 Amount Acyclovir Sodium 800 mg 250 In Sodium Chloride 0.9% 250 ml @ 266 mls/hr IVPB Q8H [facility] Rx#:[id number] cefTRIAXone 2 gm In 50 Sodium Chloride 0.9% 50 ml @ 100 mls/hr IVPB Q12HR [facility] Rx#:[id number] Oral 540 600 Output: Urine 480 1100 Other: Voiding Method Urinal Urinal Urinal # Voids 1 0 0 # Bowel Movements 1 1 - Exam GENERAL: The patient is lying in bed and is not in acute distress. LUNG: Mildy Wheezing throughout and that is without even without ausculation. At time tachypneic and appear short of breath. NEUROLOGICAL: Higher mental function: The patient is awake, alert, oriented to self, place and time. Patient is following simple commands. No aphasia or word finding difficulty and no difficulty with repitetion but appears he become short of breath/tachypneic and result then difficult continuing talking. No neglect. Cranial nerves: The pupils are round, equal and reactive to light and accommodation. Visual velez are full to confrontation throughout. Extraocular movement is intact no nystagmus is noted. Facial sensation is normal to touch throughout. The facial strength is normal throughout. Hearing is normal bilaterally to hand rub. Tongue is midline and moved [id number] without any difficulty. At time has nasal toned. Shoulder shrug is normal bilaterally. Motor: Gait is attempted but very unsteady walking. The strength is 5 over 5 throughout. Normal tone and bulk. Cerebellum: Normal finger to nose bilaterally. Sensation: Sensation is normal to touch throughout. Reflexes (right/left): 2+ throughout. Plantars are downgoing bilaterally. Some of the workup during his hospital visit consisted of: White blood cell is 15.2 thousand and predominantly neutrophilic ESR is 58 and CRP of 37.8. Ammonia level is less than 9. Drug seeing is not detected Sodium is 126, potassium 3.0, BUN 31 and a creatinine is 1.52, initial serum glucose is 136, calcium 7.6 AST of 123 and ALT of 61. Urine drug screen is negative CT of the head is reported as negative unenhanced head CT scan CT angiography of the head and neck was reported as negative. Left-sided extensive air space pneumonia. CT of chest is reported as extensive air space pulmonary infiltrates was are more on the left side. This could relate to the RDS. CSF study is clear, colorless, red blood cells 1, total nucleated cells 2, glucose is 69 and the protein is 79 (normal is 12-60). CSF Gram stain is no organisms seen. Influenza A/B/RSV PCR/SARS Covid to PCR was not detected. HIV 1 and 2 antibody is not reactive MRI the brain with and without his reported as no evidence of intracranial mass, acute/subacute infarct or abnormal enhancement. Nonspecific white matter changes with a more asymmetrical left parietal region area. I personally reviewed the MRI and I do feel like the patient has some white matter lesion nonspecific otherwise there is no acute or subacute ischemia there is no enhancement there is no mass. Routine EEG is somewhat limited because of artifact. Otherwise the background is normal and there is no focal slowing, epileptiform discharges or seizure on the EEG. - Labs CBC & Chem 7: 07/17/22 05:38 07/17/22 12:55 Labs: Abnormal Lab Results - Last 24 Hours (Table) 07/16/22 07/16/22 07/16/22 Range/Units 14:42 16:15 16:15 WBC (3.8-10.6) k/uL Plt Count (150-450) k/uL Neutrophils # (1.3-7.7) k/uL ESR 58 H (0-15) mm/hr Sodium 130 L (137-145) mmol/L Potassium 3.3 L (3.5-5.1) mmol/L BUN 28 H (9-20) mg/dL Glucose 118 H (74-99) mg/dL POC Glucose (mg/dL) 117 H (70-110) mg/dL Calcium 7.5 L (8.4-10.2) mg/dL AST (17-59) U/L ALT (4-49) U/L C-Reactive Protein 37.8 H (<1.0) mg/dL Total Protein (6.3-8.2) g/dL Albumin (3.5-5.0) g/dL CSF Total Protein (12-60) mg/dL 07/16/22 07/17/22 07/17/22 Range/Units 17:32 05:38 05:38 WBC 15.0 H (3.8-10.6) k/uL Plt Count 145 L (150-450) k/uL Neutrophils # 12.7 H (1.3-7.7) k/uL ESR (0-15) mm/hr Sodium 128 L (137-145) mmol/L Potassium 3.2 L (3.5-5.1) mmol/L BUN 23 H (9-20) mg/dL Glucose 119 H (74-99) mg/dL POC Glucose (mg/dL) (70-110) mg/dL Calcium 7.0 L (8.4-10.2) mg/dL AST 66 H (17-59) U/L ALT 50 H (4-49) U/L C-Reactive Protein (<1.0) mg/dL Total Protein 4.9 L (6.3-8.2) g/dL Albumin 2.5 L (3.5-5.0) g/dL CSF Total Protein 79 H (12-60) mg/dL 07/17/22 Range/Units 12:55 WBC (3.8-10.6) k/uL Plt Count (150-450) k/uL Neutrophils # (1.3-7.7) k/uL ESR (0-15) mm/hr Sodium (137-145) mmol/L Potassium 3.1 L (3.5-5.1) mmol/L BUN (9-20) mg/dL Glucose (74-99) mg/dL POC Glucose (mg/dL) (70-110) mg/dL Calcium (8.4-10.2) mg/dL AST (17-59) U/L ALT (4-49) U/L C-Reactive Protein (<1.0) mg/dL Total Protein (6.3-8.2) g/dL Albumin (3.5-5.0) g/dL CSF Total Protein (12-60) mg/dL Microbiology - Last 24 Hours (Table) 07/16/22 17:32 CSF Gram Stain - Preliminary Cerebral Spinal Fluid CSF Culture - Preliminary 07/15/22 22:00 Blood Culture - Preliminary Blood No Growth after 24 hours Assessment and Plan Assessment: Encephalopathy with some speech difficulty due to underlying pneumonia/septic encephalopathy. No underlying stroke on the MRI and no enhancement as well as the CSF study is negative for underlying meningitis or encephalitis. Patient is tachypneic, short of breath, hypoxic and would have speech difficulty as result. On examination no word finding difficulty or difficulty repetition or following commands. As well as the patient has a component of metabolic encephalopathy. Bilateral pneumonia left greater than the right Cephalgia due to above which has resolved Hyponatremia Hypokalemia Acute kidney insufficiency AST slightly elevated and ALT Plan: No need for acyclovir since the patient does not have any the underlying meningitis encephalitis. All other for modification of the antibiotic to the ID team. Syphilis is pending We'll defer the rest of the medical management to the primary, ID and the ICU team The plan was discussed with the patient and his nurse in detailed We'll continue to follow up with the patient. Time with Patient: Less than 30
[2022-07-17] MEDS: LEVOFLOXACIN 750 MG TAB PO SCH (14:42)
[2022-07-17 16:53] LABS: ABG HCO3 21 mmol/L (21-25); ABG PCO2 28 mmHg (35-45); ABG TCO2 22 mmol/L (19-24); Allen Test Performed? Yes
[2022-07-17 16:57] LABS: ABG PO2 56 mmHg (83-108)
[2022-07-17] MEDS: POTASSIUM CHLORIDE 10 MEQ in WATER FOR INJECTION 1 100ML.BAG IVPB SCH ×4 (17:54→23:22)
[2022-07-17] MEDS ORDERED: VANCOMYCIN 1,500 MG in SODIUM CHLORIDE 0.9% 500 ML 500 ML IVPB SCH (18:00)
[2022-07-17 19:09] LABS: ABG Base Excess -1.4 mmol/L; ABG HCO3 22 mmol/L (21-25); ABG Oxygen Saturation 94.8 % (94-97); ABG PCO2 27 mmHg (35-45); ABG PH 7.51 (7.35-7.45); ABG PO2 64 mmHg (83-108); ABG TCO2 23 mmol/L (19-24); Allen Test Performed? Yes
[2022-07-17] MEDS ORDERED: methylPREDNISolone SOD SUCCI 125 MG/2 ML VIAL IV STA (19:09)
[2022-07-17] MEDS ORDERED: PROPOFOL 10 MG/ML 20 ML VIAL IV ONE (19:46)
[2022-07-17] MEDS ORDERED: SUCCINYLCHOLINE CHLORIDE 200 MG/10 ML VIAL IV ONE (19:46)
[2022-07-17] MEDS ORDERED: CISATRACURIUM 2 MG/ML 5 ML VIAL IV ONE (20:30)
[2022-07-17] MEDS: ARTIFICIAL TEARS-HYPROMELLOSE DROPS 15 ML BTL BOTH EYES SCH (20:34)
[2022-07-17 20:41] LABS: ABG Base Excess -3.2 mmol/L; ABG HCO3 22 mmol/L (21-25); ABG Oxygen Saturation 99.3 % (94-97); ABG PCO2 39 mmHg (35-45); ABG PH 7.37 (7.35-7.45); ABG PO2 155 mmHg (83-108); ABG TCO2 23 mmol/L (19-24); Allen Test Performed? Yes
--- NOTE | 2022-07-17 21:01 | XR ---
EXAMINATION: XR chest 1V portable ; 07/17/2022 8:22 PM CLINICAL INDICATION: Tube placement TECHNIQUE: AP semiupright portable COMPARISON: AP upright portable; 07/17/2022 at 7:56 AM FINDINGS: Since the prior study isn't intubated. ET tube tip superimposed over the trachea. Also new since the prior study is an NG tube, which courses over the expected position of the esophag us to have its tip superimposed over the expected position of the gastric fundus. However, the lumen of the NG tube is superimposed over the expected position of the distal most esophagus or GE junction , and the NG tube may be better placed 5 cm distally. EKG leads redemonstrated. There is at least mild interval worsening in the overall lung inflation pattern when compared to prio r study, the air space filling process now includes almost the entirety of the left lung, and now inv olves the right infrahilar position to a prominent degree. There is no pneumothorax. Mediastinum is midline. IMPRESSION: Post intubation radiograph. Interval worsening in the overall lung inflation.
[2022-07-17] MEDS: CISATRACURIUM 200 MG in SODIUM CHLORIDE 0.9% 180 ML IV SCH (22:21)
[2022-07-17] MEDS: CHLORHEXIDINE GLUCONATE 15 ML CUP MUCOUS MEM SCH (23:22)
[2022-07-18] MEDS ORDERED: methylPREDNISolone SOD SUCCI 125 MG/2 ML VIAL IV SCH
[2022-07-18] MEDS: PIPERACILLIN-TAZOBACTAM 3.375 GM in SODIUM CHLORIDE 0.9% 100 ML IVPB SCH ×3 (00:03→16:10)
[2022-07-18] MEDS: ARTIFICIAL TEARS-HYPROMELLOSE DROPS 15 ML BTL BOTH EYES SCH ×6 (00:03→20:06)
--- NOTE | 2022-07-18 00:21 | PN ---
PROGRESS NOTE SUBJECTIVE: The patient went to ICU, has increasing respiratory distress. Discussed case with Dr. Quiñones, Infectious Disease for which IV antifungals will be ordered and switched to IV Zosyn. He has been intubated to make his breathing up to respiratory rate of 40, on 10 L oxygen. OBJECTIVE: VITAL SIGNS: T-max 101.9, pulse of 100, respiratory rate around 40, and saturating in the low 90s. CAT scan shows severe pneumonia in the left entire lung and half of the right lung, unclear etiology. is negative. Apparently, he lives in a moldy house where it rains inside the house and there is mould everywhere possible. Spinal taps are negative. Possible bronchoscopy will be done in the near future. He remains on IV medications, possibly IV worsening antibiotics and antifungals as he is RSV negative. Influenza A and B, HIV negative. CT of the chest, as mentioned RDS, extensive infiltrates. White count 15, hemoglobin is 13, platelets 145. EEG is negative. Potassium 3.2, sodium 128, calcium is 7. CRP is 37. ASSESSMENT: Encephalopathy, severe pneumonia left greater than right. Extensive hypoxemic hypercapnic respiratory failure, metabolic encephalopathy, bilateral pneumonia, hyponatremia, hypokalemia, kidney insufficiency, prerenal azotemia. IV steroids, antifungals. Discussed case with Dr. Quiñones. Prognosis guarded. He is to continue on Zosyn possible antifungals which may be limited due to elevated liver enzymes. Prognosis guarded. MMODL / IJN: [id number] /
[2022-07-18] MEDS: IPRATROPIUM-ALBUTEROL 3 ML NEB INHALATION SCH ×6 (03:27→23:45)
[2022-07-18] MEDS ORDERED: VANCOMYCIN TROUGH DUE 1 EACH MISC MISCELLANE ONE (05:00)
[2022-07-18 06:05] LABS: Allen Test Performed? Yes
[2022-07-18 06:06] LABS: ABG Base Excess -0.8 mmol/L; ABG HCO3 24 mmol/L (21-25); ABG PCO2 37 mmHg (35-45); ABG PH 7.42 (7.35-7.45); ABG PO2 91 mmHg (83-108); ABG TCO2 25 mmol/L (19-24)
[2022-07-18 06:20] LABS: Basophils % (A) 0 %; Eosinophils # (A) 0.1 k/uL (0-0.7); Eosinophils % (A) 0 %; HCT 36.8 % (39.0-53.0); HGB 12.5 gm/dL (13.0-17.5); Lymphocytes # (A) 1.3 k/uL (1.0-4.8); Lymphocytes % (A) 9 %; MCH 30.8 pg (25.0-35.0); MCV 90.5 fL (80.0-100.0); Mean Platelet Volume 9.4; Monocytes # (A) 0.7 k/uL (0-1.0); Monocytes % (A) 5 %; Neutrophils # (A) 12.6 k/uL (1.3-7.7); Neutrophils % (A) 86 %; Platelet Count 151 k/uL (150-450); RBC 4.07 m/uL (4.30-5.90); RDW 13.8 % (11.5-15.5); WBC 14.7 k/uL (3.8-10.6)
[2022-07-18 06:46] LABS: ALT 41 U/L (4-49); AST 48 U/L (17-59); African American GFR (CKD) >90 (>60 ml/min/1.73 sqM); Albumin 2.3 g/dL (3.5-5.0); Alkaline Phosphatase 70 U/L (38-126); Anion Gap 6 mmol/L; Blood Urea Nitrogen 16 mg/dL (9-20); Calcium 7.4 mg/dL (8.4-10.2); Carbon Dioxide 21 mmol/L (22-30); Chloride 101 mmol/L (98-107); Glucose 114 mg/dL (74-99); Non-African American GFR(CKD) >90 (>60 ml/min/1.73 sqM); Potassium 3.6 mmol/L (3.5-5.1); Sodium 128 mmol/L (137-145); Total Bilirubin 0.9 mg/dL (0.2-1.3); Total Protein 4.8 g/dL (6.3-8.2)
--- NOTE | 2022-07-18 07:42 | US ---
EXAMINATION TYPE: US abdomen complete DATE OF EXAM: 07/18/2022 COMPARISON: NONE CLINICAL HISTORY: elevated LFT. TECHNIQUE: Multiple sonographic images of the abdomen are obtained. FINDINGS: EXAM MEASUREMENTS: Liver Length: 17.3 cm Gallbladder Wall: 0.4 cm CBD: 0.4 cm Spleen: 10.9 cm Right Kidney: 12.4 x 5.5 x 6.4 cm Left Kidney: 11.4 x 7.2 x 6.1 cm TRANSPORT CONDUCTOR NOTES: Unresponsive, immobile vented pt in ICU, difficult scan Pancreas: Obscured by bowel gas Liver: Heterogeneous, two cysts left lobe 1)= 0.9 x 0.6 x 0.5 cm 2)= 0.9 cm, hyperechoic lesion rig ht posterior lobe= 0.8 x 0.8 x 0.9 cm Gallbladder: Lumen clear, wall thickened CBD: wnl Spleen: Difficult to visualize due to immobile pt Right Kidney: Cyst upper pole= 0.9 x 0.6 x 0.9 cm, no evidence of hydro Left Kidney: No evidence of hydro, limited views due to immobile pt Upper IVC: wnl Abd Aorta: Obscured by overlying bowel gas The liver is heterogenous with 2 cysts demonstrated within the left hepatic lobe. There is a hyperech oic lesion within the right hepatic lobe measuring up to 8 mm. The intrahepatic portion of the IVC an d proximal abdominal aorta are within normal limits. The gallbladder is underdistended with wall thic kening identified measuring up to 4 mm. No pericholecystic fluid or cholelithiasis is identified. Com mon bile duct is unremarkable. The pancreas is obscured by overlying bowel gas. The spleen is unrema rkable. Kidneys are symmetric and free of hydronephrosis. Small 9 mm cyst identified within the supe rior pole of the right kidney. IMPRESSION: Limited examination due to patient condition. 1. Heterogenous liver with 2 small cysts in the left hepatic lobe and a 8 mm hyperechoic lesion withi n the right hepatic lobe which may represent a hemangioma. Further evaluation with CT or MRI abdomen liver mass protocol is recommended as an outpatient. 2. Gallbladder is underdistended with wall thickening. No pericholecystic fluid or cholelithiasis to suggest acute cholecystitis.
[2022-07-18] MEDS: POTASSIUM CHLORIDE 10 MEQ in WATER FOR INJECTION 1 100ML.BAG IVPB SCH ×2 (08:20→10:42)
[2022-07-18] MEDS: LEVOFLOXACIN 750 MG TAB PO SCH (08:20)
[2022-07-18] MEDS: FAMOTIDINE 20 MG TAB PO SCH (08:20)
[2022-07-18] MEDS: CHLORHEXIDINE GLUCONATE 15 ML CUP MUCOUS MEM SCH ×2 (08:20→20:06)
--- NOTE | 2022-07-18 09:32 | XR ---
EXAMINATION TYPE: XR chest 1V portable DATE OF EXAM: 07/18/2022 COMPARISON: 07/17/2022 HISTORY: Tube placement TECHNIQUE: Single frontal view of the chest is obtained. FINDINGS: ET and NG tube noted with bilateral infiltrate and pleural effusion. There is no sizable p neumothorax. Heart size stable. Limited inspiration. IMPRESSION: Bilateral infiltrate and small effusion stable.
--- NOTE | 2022-07-18 10:13 | PCN ---
PROCEDURE NOTE PROCEDURE PERFORMED: Right radial art line. PREOPERATIVE DIAGNOSES: Frequent blood draws and blood gas monitoring, mechanical ventilation. POSTOPERATIVE DIAGNOSES: Frequent blood draws and blood gas monitoring, mechanical ventilation. CO-SURGEONS: Dr. Brar and José Antonio Toribio NP. DESCRIPTION OF PROCEDURE: A time-out was completed verifying correct patient, procedure, site, positioning, and implant(s) or special equipment if applicable. Edwin's test was performed to ensure adequate perfusion. The patient's right radial artery was prepped and draped in sterile fashion. 1% Lidocaine was used to anesthetize the area. An 18G Arrow arterial line was introduced into the radial artery. The catheter was threaded over the guide wire and the needle was removed with appropriate pulsatile blood return. Blood loss was minimal. The catheter was then sutured in place to the skin and a sterile dressing applied. Perfusion to the extremity distal to the point of catheter insertion was checked and found to be adequate. There was good blood return and waveform. The catheter was sutured in place. A sterile dressing was applied by the nurse. There was no immediate complication. The patient tolerated the procedure well. Again, there was informed consent and universal timeout. MMODL / IJN: [id number] /
[2022-07-18] MEDS: CISATRACURIUM 200 MG in SODIUM CHLORIDE 0.9% 180 ML IV SCH (10:41)
[2022-07-18] MEDS: SODIUM CHLORIDE 0.9% 1,000 ML IV SCH (10:43)
--- NOTE | 2022-07-18 10:51 | XR ---
EXAMINATION TYPE: XR chest 1V portable DATE OF EXAM: 07/18/2022 COMPARISON: 07/18/2022 HISTORY: Line placement TECHNIQUE: Single frontal view of the chest is obtained. FINDINGS: ET tube and NG tube stable. Bilateral areas of infiltrate which is diffuse on the left and pleural effusion stable. No sizable pneumothorax. Limited inspiration. Central line now seen with ti p overlying the right atrium but no pneumothorax. IMPRESSION: 1. Central line appears with the tip overlying the right atrium. No pneumothorax. 2. Correlate for diffuse airspace disease including pulmonary edema versus pneumonia or ARDS.
--- NOTE | 2022-07-18 10:58 | OP ---
OPERATIVE REPORT PROCEDURES PERFORMED: Bronchoscopy, airway examination, therapeutic lavage, bronchoalveolar lavage. PREOPERATIVE DIAGNOSES: Severe bilateral pneumonia, respiratory failure, mechanical ventilation. POSTOPERATIVE DIAGNOSES: Severe bilateral pneumonia, respiratory failure, mechanical ventilation. PACK OUT OPERATOR: Dr. Toshia Brra and also participating in the procedure with CARLITOS Millard. The patient was on the ventilator already. The patient was on 100% oxygen. Bronchoscope adapter was connected to the endotracheal tube. There was informed consent and universal timeout. The bronchoscope was inserted through the bronchoscope adapter connected to the endotracheal tube. There were thick secretions noted in the trachea. They were suctioned. Next, there was a thorough evaluation of both lungs, including the right upper lobe and its 3 segments, right middle lobe and its 2 segments, right lower lobe and its 5 segments, left upper lobe and its 2 segments, lingula and its 2 segments, the left lower lobe and its 4 segments. Findings were similar throughout. There was diffuse airway erythema and hyperemia. There were thick secretions noted throughout. They were quite purulent and viscid. Most secretions were left-sided versus right-sided. There was no dominant mass or tumor. There was mucosal friability. Thick secretions were suctioned with the aid of saline lavage. Next, the bronchoscope was wedged into the left lower lobe. We did a formal BAL. About 30 mL of turbid fluid was recovered. The fluid will be sent for analysis. The patient tolerated the procedure well. The bronchoscope was withdrawn. A chest x-ray was ordered. There was no immediate complication. MMODL / IJN: [id number] /
--- NOTE | 2022-07-18 11:07 | OP ---
OPERATIVE REPORT PULMONARY/CRITICAL CARE PROCEDURE NOTE: PROCEDURE PERFORMED: Left internal jugular triple-lumen catheter. PREOPERATIVE DIAGNOSES: Hypotension, administration of pressors. POSTOPERATIVE DIAGNOSES: Hypotension, administration of pressors. TRIPLE LUMEN CATHETER PLACEMENT: Indication: Hemodynamic monitoring/Intravenous access. A time-out was completed verifying correct patient, procedure, site, positioning, and implant(s) or special equipment if applicable. The patient was placed in a dependent position appropriate for triple lumen catheter placement based on the vein to be cannulated. The patient's left shoulder or left neck or left groin was prepped and draped in sterile fashion. 1% Lidocaine was used to anesthetize the surrounding skin area. A triple lumen 9F Cordis catheter was introduced into the left internal jugular using Seldinger technique. The catheter was threaded smoothly over the guide wire and appropriate blood return was obtained. Each lumen of the catheter was evacuated of air and flushed with sterile saline. The catheter was then sutured in place to the skin and a sterile dressing applied. Perfusion to the extremity distal to the point of catheter insertion was checked and found to be adequate. CO-SURGEON: Dr. Toshia Brar and José Antonio Toribio, [facility] There was informed consent and universal timeout. We used the left internal jugular vein via posterior approach. There was no immediate complication. There was good blood return from all 3 ports. The catheter was sutured into place. Sterile dressing was applied by the nurse. The tip of the catheter was seen at the junction of the right atrium and superior vena cava. A chest x-ray was ordered. MMODL / IJN: [id number] /
[2022-07-18 11:13] LABS: VDRL, Qualitative CSF Nonreactive (Nonreactive)
[2022-07-18 12:07] LABS: IgG - CSF 4.4 mg/dL (0.0 - 3.4); Immunoglobulin G 970 mg/dL (700 - 1600)
--- NOTE | 2022-07-18 12:14 | P.PN ---
Subjective Progress Note Date: 07/18/22 I spoke with the patient's nurse and it seems the patient respiratory condition was worse yesterday in late afternoon and close to shift change because of his worsening respiratory condition he was intubated and on ventilator. He continues to have fevers. He is on IV Propofol 40mcg/kg/min. Also on Nimbex 2mg/kg/min. Objective - Vital Signs Vital signs: Vital Signs Temp 99.9 F H 07/18/22 08:00 Pulse 94 07/18/22 11:33 Resp 26 H 07/18/22 08:30 BP 91/54 07/18/22 08:30 Pulse Ox 94 L 07/18/22 08:30 FiO2 60 07/18/22 11:24 Intake & Output 07/17/22 07/18/22 07/18/22 18:59 06:59 18:59 Intake Total 1350 1365.430 530.661 Output Total 970 85 Balance 1350 395.430 445.661 Weight 90.9 kg 90.9 kg Intake: IV 600 1120 310 Piperacillin-Tazobactam 3 100 100 .375 gm In Sodium Chloride 0.9% 100 ml @ 25 mls/hr IVPB Q8HR [facility] Rx# :[id number] Potassium Chloride 10 meq 100 In Water For Injection 1 100ml.bag @ 100 mls/hr IVPB Q1H [facility] Rx#: [id number] Potassium Chloride 10 meq 300 In Water For Injection 1 100ml.bag @ 100 mls/hr IVPB Q1HR [facility] Rx#: [id number] Sodium Chloride 0.9% 1, 100 150 000 ml @ 130 mls/hr IV . [id number] [facility] Rx#:[id number] Sodium Chloride 0.9% 1, 570 110 000 ml @ 50 mls/hr IV . Q20H [facility] Rx#:[id number] Vancomycin 1,500 mg In 500 Sodium Chloride 0.9% 500 ml 500 ml @ 167 mls/hr IVPB Q16H [facility] Rx#: [id number] Intake, IV Titration 150 245.430 220.661 Amount Cisatracurium 200 mg In 131.655 Sodium Chloride 0.9% 180 ml @ 2 MCG/KG/MIN 10.596 mls/hr IV .[id number] [facility] Rx #:[id number] Potassium Chloride 10 meq 100 In Water For Injection 1 100ml.bag @ 100 mls/hr IVPB Q1HR [facility] Rx#: [id number] cefTRIAXone 2 gm In 50 Sodium Chloride 0.9% 50 ml @ 100 mls/hr IVPB Q12HR [facility] Rx#:[id number] propofoL 1,000 mg In 245.430 89.006 Empty Bag 1 bag @ 15 MCG/ KG/MIN 7.947 mls/hr IV . [id number] [facility] Rx#:[id number] Oral 600 Output: Urine 970 85 Other: Voiding Method Urinal Indwelling Catheter # Voids 1 0 # Bowel Movements 1 - Exam GENERAL: The patient is lying in bed and does not appear in acute distress. LUNG: Intubated on ventilator. NEUROLOGICAL: Limited because of sedation (IV Propofol 40mcg/kg/min. Also on Nimbex 2mg/kg/min). Higher mental function: The patient is comatose GCS 3 (E1, VT1, M1). Cranial nerves: I had to manually open his eyes. Primary gaze is midline. The pupils are round, constricted. Motor: Strength is limited because of his condition. Cerebellum: Unable to assess. Sensation: Unable to assess light touch. Reflexes (right/left): 1+ throughout. Plantars are mute bilaterally. Some of the workup during his hospital visit consisted of: White blood cell is 15.2 thousand and predominantly neutrophilic ESR is 58 and CRP of 37.8. Ammonia level is less than 9. Drug seeing is not detected Sodium is 126, potassium 3.0, BUN 31 and a creatinine is 1.52, initial serum glucose is 136, calcium 7.6 AST of 123 and ALT of 61. Urine drug screen is negative CT of the head is reported as negative unenhanced head CT scan CT angiography of the head and neck was reported as negative. Left-sided extensive air space pneumonia. CT of chest is reported as extensive air space pulmonary infiltrates was are more on the left side. This could relate to the RDS. CSF study is clear, colorless, red blood cells 1, total nucleated cells 2, glucose is 69 and the protein is 79 (normal is 12-60). CSF Gram stain is no organisms seen. CSF VDRL nonreactive. CSF no viruses detected. CSF Oligoclonal bands: Negative Influenza A/B/RSV PCR/SARS Covid to PCR was not detected. HIV 1 and 2 antibody is not reactive Treponema Pallidum Ab: Nonreactive. MRI the brain with and without his reported as no evidence of intracranial mass, acute/subacute infarct or abnormal enhancement. Nonspecific white matter changes with a more asymmetrical left parietal region area. I personally reviewed the MRI and I do feel like the patient has some white matter lesion nonspecific otherwise there is no acute or subacute ischemia there is no enhancement there is no mass. Routine EEG is somewhat limited because of artifact. Otherwise the background is normal and there is no focal slowing, epileptiform discharges or seizure on the EEG. - Labs CBC & Chem 7: 07/18/22 05:56 07/18/22 05:56 Labs: Abnormal Lab Results - Last 24 Hours (Table) 07/17/22 07/17/22 07/17/22 Range/Units 12:55 16:45 17:01 WBC (3.8-10.6) k/uL RBC (4.30-5.90) m/uL Hgb (13.0-17.5) gm/dL Hct (39.0-53.0) % Neutrophils # (1.3-7.7) k/uL D-Dimer (<0.60) mg/L FEU ABG pH 7.50 H (7.35-7.45) ABG pCO2 28 L (35-45) mmHg ABG pO2 56 L* (83-108) mmHg ABG Total CO2 (19-24) mmol/L ABG O2 Saturation 92.0 L (94-97) % Sodium (137-145) mmol/L Potassium 3.1 L 3.0 L (3.5-5.1) mmol/L Carbon Dioxide (22-30) mmol/L Glucose (74-99) mg/dL Calcium (8.4-10.2) mg/dL Total Protein (6.3-8.2) g/dL Albumin (3.5-5.0) g/dL 07/17/22 07/17/22 07/17/22 Range/Units 17:01 19:05 20:39 WBC (3.8-10.6) k/uL RBC (4.30-5.90) m/uL Hgb (13.0-17.5) gm/dL Hct (39.0-53.0) % Neutrophils # (1.3-7.7) k/uL D-Dimer 6.34 H (<0.60) mg/L FEU ABG pH 7.51 H (7.35-7.45) ABG pCO2 27 L (35-45) mmHg ABG pO2 64 L 155 H (83-108) mmHg ABG Total CO2 (19-24) mmol/L ABG O2 Saturation 99.3 H (94-97) % Sodium (137-145) mmol/L Potassium (3.5-5.1) mmol/L Carbon Dioxide (22-30) mmol/L Glucose (74-99) mg/dL Calcium (8.4-10.2) mg/dL Total Protein (6.3-8.2) g/dL Albumin (3.5-5.0) g/dL 07/18/22 07/18/22 07/18/22 Range/Units 05:51 05:56 05:56 WBC 14.7 H (3.8-10.6) k/uL RBC 4.07 L (4.30-5.90) m/uL Hgb 12.5 L (13.0-17.5) gm/dL Hct 36.8 L (39.0-53.0) % Neutrophils # 12.6 H (1.3-7.7) k/uL D-Dimer (<0.60) mg/L FEU ABG pH (7.35-7.45) ABG pCO2 (35-45) mmHg ABG pO2 (83-108) mmHg ABG Total CO2 25 H (19-24) mmol/L ABG O2 Saturation (94-97) % Sodium 128 L (137-145) mmol/L Potassium (3.5-5.1) mmol/L Carbon Dioxide 21 L (22-30) mmol/L Glucose 114 H (74-99) mg/dL Calcium 7.4 L (8.4-10.2) mg/dL Total Protein 4.8 L (6.3-8.2) g/dL Albumin 2.3 L (3.5-5.0) g/dL Microbiology - Last 24 Hours (Table) 07/17/22 19:50 Gram Stain - Preliminary Sputum Sputum Culture - Preliminary 07/15/22 22:00 Blood Culture - Preliminary Blood No Growth after 48 hours 01/18/23 17:32 CSF Gram Stain - Preliminary Cerebral Spinal Fluid CSF Culture - Preliminary Assessment and Plan Assessment: Encephalopathy with some speech difficulty due to underlying pneumonia/septic encephalopathy. No underlying stroke on the MRI and no enhancement as well as the CSF study is negative for underlying meningitis or encephalitis. Patient is tachypneic, very short of breath, hypoxic and would have speech difficulty as result. On examination no word finding difficulty or difficulty repetition or following commands. Some component of metabolic encephalopathy and medication effect (Propofol and Nimbex) Bilateral pneumonia left greater than the right Hypoxic respiratory distress and result intubated on ventilator. Cephalgia due to above which has resolved Hyponatremia Hypokalemia--resolved Acute kidney insufficiency AST slightly elevated and ALT--resolved Plan: Will defer the modification of antibiotic to I.D. team and Primary team. Continue neuro checks. Patient had bronchial lavage today and pending result. We'll defer the rest of the medical management to the primary, ID and the ICU team The plan was discussed with his nurse. We'll continue to follow up with the patient. Time with Patient: Less than 30
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
[2022-07-18] MEDS ORDERED: DEXTROSE 50% SYRINGE 50 ML IVP PRN ×2 (12:31)
[2022-07-18] MEDS: INSULIN ASPART (NovoLOG) 100 UNIT/ML VIAL SQ SCH ×2 (14:23→18:13)
--- NOTE | 2022-07-18 15:35 | CDI ---
Documentation Clarification Form Date: 07/18/2022 From: Deanne Osborn RN,CCDS Admit Date: 07/15/2022 9:41:00 PM Patient Name: Moriah Arndt Visit Number: [id number] Discharge Date: ATTENTION: The Clinical Documentation Specialists (CDI) and [facility] Coding Staff appreciate your assistance in clarifying documentation. Please respond to the clarification below the line at the bottom and electronically sign. The CDI & [facility] Coding staff will review the response and follow-up if needed. Please note: Queries are made part of the Legal Health Record. If you have any questions, please contact the author of this message via ITS. Dr. Kristopher Wyatt The patient presented with mental status changes, fever and elevated white count. Additional clarification regarding the etiology/cause of the clinical indicators is requested. History/Risk Factors: COVID-19 07/16 ID Consult: Patient in the hospital mental status changes in this patient who did have evidence of fever and elevated count. 07/16 Neurology consult: Encephalopathy due to sepsis and appears underlying pneumonia. Also, patient has underlying metabolic encephalopathy. Clinical Indicators: 52-year-old female with altered mental status. A/OX2. He was having expressive aphasia. 07/15 Labs: WBC: 15.2, Sodium 126, bun 31, Cr 1.52 GFR 53 07/15 Blood cultures: No growth after 48 hours 07/15@ 17: 45 Vital signs: 119/74 110 18 103.1 91 % RA 07/15 @ 18:00 VS: 139/75 105 103.2 92 % RA 07/15 CXR: Extensive pulmonary infiltrates that could be developing RDS. Congestive heart failure also possible. Treatment: ICU/Telemetry monitoring Rocephin 2 GM IVPB Q 24 HRS 07/16-07/17, Cefepime 2 GM IVPB Q 12 08/15-07/16 Vancomycin 2,000 MG IVPB07/15 (PTD) then 1,500MG IVPB Q 16 HRS 07/16-07/17 Acyclovir 800 MG IVPB Q 8 HRS 07/16-07/17 .9NS 1,000 IV 07/15 then @ 130MLS/HR 07/16-07/17 In your professional opinion, please clarify if these findings signify one of the following conditions: [ ] Sepsis POA [ ] Sepsis ruled out [ ] Severe Sepsis with organ failure, POA [ ] Other, please specify [ ] Unable to determine SIRS Criteria: 2 or more of the following may indicate SIRS -Temperature < 96.8F (36C) or > 101.0F (38.3C) -Heart Rate > 90 bpm -Respiratory Rate > 20 breaths/min or PaCO2 < 32 mmHg -White Blood Cell Count > 12,000 or < 4,000 cells/mm3 or > 10% bands (Template Last Reviewed: July 2020) MTDD
[2022-07-18] MEDS: ACETAMINOPHEN TAB 325 MG TAB PO PRN ×2 (16:10→22:25)
[2022-07-18] MEDS ORDERED: LEVOFLOXACIN 750MG-D5W PMX 750 MG in DEXTROSE/WATER 1 150ML.BAG IVPB STA (17:35)
[2022-07-18 18:14] LABS: Glucose,Whole Blood 118 mg/dL (70-110)
[2022-07-18] MEDS: POTASSIUM BICARBONATE/CIT AC 20 MEQ TABLET.EFF NG-TUBE SCH ×2 (18:14→20:06)
[2022-07-18] MEDS ORDERED: LACTATED RINGERS 1,000 ML IV ONE ×2 (19:00→22:00)
--- NOTE | 2022-07-18 22:13 | P.PN ---
Subjective Progress Note Date: 07/18/22 Principal diagnosis: Fever and pneumonia Patient is a 52-year-old male who was brought into the ER via EMS and police after apparently the patient was noticed to be altered mentally when he was stopped by the railroad police patient apparently was followed by the railroad police on the expressway as the patient was receiving and not pulling immediately but no accident has happened, patient wasn't to be slightly confused and oxygen with a question of possible pneumonia patient also have a CSF examination which came back to be negative. On today's evaluation that is 07/18/2022 the patient did have a low-grade fever of 99.9F this morning, the patient is hemodynamically stable not requiring pressor support , the patient did went into respiratory distress last evening and ended up getting intubated and the patient has been prompted by pulmonary this morning with significant purulent secretion per discussion with the streets and buildings decorator, no vomiting or diarrhea has been reported by the nursing staff Objective - Vital Signs Vital signs: Vital Signs Temp 99.9 F H 07/18/22 08:00 Pulse 94 07/18/22 11:33 Resp 26 H 07/18/22 08:30 BP 91/54 07/18/22 08:30 Pulse Ox 94 L 07/18/22 08:30 FiO2 60 07/18/22 11:24 Intake & Output 07/17/22 07/18/22 07/18/22 18:59 06:59 18:59 Intake Total 1350 1365.430 530.661 Output Total 970 85 Balance 1350 395.430 445.661 Weight 90.9 kg 90.9 kg Intake: IV 600 1120 310 Piperacillin-Tazobactam 3 100 100 .375 gm In Sodium Chloride 0.9% 100 ml @ 25 mls/hr IVPB Q8HR [facility] Rx# :[id number] Potassium Chloride 10 meq 100 In Water For Injection 1 100ml.bag @ 100 mls/hr IVPB Q1H [facility] Rx#: [id number] Potassium Chloride 10 meq 300 In Water For Injection 1 100ml.bag @ 100 mls/hr IVPB Q1HR [facility] Rx#: [id number] Sodium Chloride 0.9% 1, 100 150 000 ml @ 130 mls/hr IV . Q7H42M [facility] Rx#:[id number] Sodium Chloride 0.9% 1, 570 110 000 ml @ 50 mls/hr IV . Q20H [facility] Rx#:[id number] Vancomycin 1,500 mg In 500 Sodium Chloride 0.9% 500 ml 500 ml @ 167 mls/hr IVPB Q16H [facility] Rx#: [id number] Intake, IV Titration 150 245.430 220.661 Amount Cisatracurium 200 mg In 131.655 Sodium Chloride 0.9% 180 ml @ 2 MCG/KG/MIN 10.596 mls/hr IV .[id number] [facility] Rx #:[id number] Potassium Chloride 10 meq 100 In Water For Injection 1 100ml.bag @ 100 mls/hr IVPB Q1HR [facility] Rx#: [id number] cefTRIAXone 2 gm In 50 Sodium Chloride 0.9% 50 ml @ 100 mls/hr IVPB Q12HR [facility] Rx#:[id number] propofoL 1,000 mg In 245.430 89.006 Empty Bag 1 bag @ 15 MCG/ KG/MIN 7.947 mls/hr IV . [id number] [facility] Rx#:[id number] Oral 600 Output: Urine 970 85 Other: Voiding Method Urinal Indwelling Catheter # Voids 1 0 # Bowel Movements 1 - Exam GENERAL DESCRIPTION: A middle-aged male intubated on the vent RESPIRATORY SYSTEM: Unlabored breathing , coarse breath sounds bilaterally HEART: S1 S2 regular rate and rhythm , ABDOMEN: Soft , no tenderness EXTREMITIES: No edema feet - Labs CBC & Chem 7: 07/18/22 05:56 07/18/22 16:30 Labs: Abnormal Lab Results - Last 24 Hours (Table) 07/17/22 07/17/22 07/17/22 Range/Units 12:55 16:45 17:01 WBC (3.8-10.6) k/uL RBC (4.30-5.90) m/uL Hgb (13.0-17.5) gm/dL Hct (39.0-53.0) % Neutrophils # (1.3-7.7) k/uL D-Dimer (<0.60) mg/L FEU ABG pH 7.50 H (7.35-7.45) ABG pCO2 28 L (35-45) mmHg ABG pO2 56 L* (83-108) mmHg ABG Total CO2 (19-24) mmol/L ABG O2 Saturation 92.0 L (94-97) % Sodium (137-145) mmol/L Potassium 3.1 L 3.0 L (3.5-5.1) mmol/L Carbon Dioxide (22-30) mmol/L Glucose (74-99) mg/dL Calcium (8.4-10.2) mg/dL Total Protein (6.3-8.2) g/dL Albumin (3.5-5.0) g/dL 07/17/22 07/17/22 07/17/22 Range/Units 17:01 19:05 20:39 WBC (3.8-10.6) k/uL RBC (4.30-5.90) m/uL Hgb (13.0-17.5) gm/dL Hct (39.0-53.0) % Neutrophils # (1.3-7.7) k/uL D-Dimer 6.34 H (<0.60) mg/L FEU ABG pH 7.51 H (7.35-7.45) ABG pCO2 27 L (35-45) mmHg ABG pO2 64 L 155 H (83-108) mmHg ABG Total CO2 (19-24) mmol/L ABG O2 Saturation 99.3 H (94-97) % Sodium (137-145) mmol/L Potassium (3.5-5.1) mmol/L Carbon Dioxide (22-30) mmol/L Glucose (74-99) mg/dL Calcium (8.4-10.2) mg/dL Total Protein (6.3-8.2) g/dL Albumin (3.5-5.0) g/dL 07/18/22 07/18/22 07/18/22 Range/Units 05:51 05:56 05:56 WBC 14.7 H (3.8-10.6) k/uL RBC 4.07 L (4.30-5.90) m/uL Hgb 12.5 L (13.0-17.5) gm/dL Hct 36.8 L (39.0-53.0) % Neutrophils # 12.6 H (1.3-7.7) k/uL D-Dimer (<0.60) mg/L FEU ABG pH (7.35-7.45) ABG pCO2 (35-45) mmHg ABG pO2 (83-108) mmHg ABG Total CO2 25 H (19-24) mmol/L ABG O2 Saturation (94-97) % Sodium 128 L (137-145) mmol/L Potassium (3.5-5.1) mmol/L Carbon Dioxide 21 L (22-30) mmol/L Glucose 114 H (74-99) mg/dL Calcium 7.4 L (8.4-10.2) mg/dL Total Protein 4.8 L (6.3-8.2) g/dL Albumin 2.3 L (3.5-5.0) g/dL Microbiology - Last 24 Hours (Table) 07/17/22 19:50 Gram Stain - Preliminary Sputum Sputum Culture - Preliminary 07/15/22 22:00 Blood Culture - Preliminary Blood No Growth after 48 hours 07/16/22 17:32 CSF Gram Stain - Preliminary Cerebral Spinal Fluid CSF Culture - Preliminary Assessment and Plan (1) Pneumonia Current Visit: Yes Status: Acute Code(s): J18.9 - PNEUMONIA, UNSPECIFIED ORGANISM SNOMED Code(s): 977652546 Plan: 1patient is in the hospital mental status changes in this patient who did have evidence of fever and elevated white count patient currently denies having any headache to me however he didn't mention it to the neurologist underlying meningitis and encephalitis has been ruled out in this patient also have evidence of extensive pneumonia and will need to cover for the gram-positive as well as gram-negative pathogen 2we will wait for the sputum for sputum culture as well as bronc sample and wait for urine for legionella antigen 3patient to continue with the Zosyn and Levaquin will waiting for the cultures to finalize Time with Patient: Less than 30
[2022-07-18 22:20] LABS: Appearance,BF Turbid
[2022-07-18 23:58] LABS: Glucose,Whole Blood 106 mg/dL (70-110)
[2022-07-19] MEDS: ARTIFICIAL TEARS-HYPROMELLOSE DROPS 15 ML BTL BOTH EYES SCH ×7 (00:01→23:17)
[2022-07-19] MEDS: PIPERACILLIN-TAZOBACTAM 3.375 GM in SODIUM CHLORIDE 0.9% 100 ML IVPB SCH ×4 (00:01→23:16)
[2022-07-19] MEDS: INSULIN ASPART (NovoLOG) 100 UNIT/ML VIAL SQ SCH ×4 (00:04→17:46)
[2022-07-19] MEDS ORDERED: POTASSIUM BICARBONATE/CIT AC 20 MEQ TABLET.EFF NG-TUBE SCH ×2 (01:00→08:00)
[2022-07-19] MEDS: CISATRACURIUM 200 MG in SODIUM CHLORIDE 0.9% 180 ML IV SCH ×3 (02:21→20:06)
[2022-07-19] MEDS: IPRATROPIUM-ALBUTEROL 3 ML NEB INHALATION SCH ×6 (03:53→19:34)
[2022-07-19 05:45] LABS: ABG Base Excess 3.3 mmol/L; ABG HCO3 27 mmol/L (21-25); ABG Oxygen Saturation 91.7 % (94-97); ABG PCO2 40 mmHg (35-45); ABG PH 7.45 (7.35-7.45); ABG TCO2 29 mmol/L (19-24); Allen Test Performed? Yes
[2022-07-19 05:47] LABS: ABG PO2 57 mmHg (83-108)
[2022-07-19 06:03] LABS: Glucose,Whole Blood 117 mg/dL (70-110)
[2022-07-19 06:23] LABS: Basophils # (A) 0.1 k/uL (0-0.2); Basophils % (A) 0 %; Eosinophils # (A) 0.2 k/uL (0-0.7); Eosinophils % (A) 1 %; HGB 11.4 gm/dL (13.0-17.5); Lymphocytes # (A) 1.1 k/uL (1.0-4.8); Lymphocytes % (A) 8 %; MCH 30.3 pg (25.0-35.0); MCHC 33.6 g/dL (31.0-37.0); MCV 90.4 fL (80.0-100.0); Mean Platelet Volume 8.9; Monocytes # (A) 0.5 k/uL (0-1.0); Monocytes % (A) 4 %; Neutrophils # (A) 11.7 k/uL (1.3-7.7); Neutrophils % (A) 86 %; Platelet Count 198 k/uL (150-450); RBC 3.76 m/uL (4.30-5.90); RDW 13.9 % (11.5-15.5); WBC 13.6 k/uL (3.8-10.6)
[2022-07-19 07:03] LABS: ALT 37 U/L (4-49); AST 46 U/L (17-59); African American GFR (CKD) >90 (>60 ml/min/1.73 sqM); Alkaline Phosphatase 70 U/L (38-126); Anion Gap 1 mmol/L; Blood Urea Nitrogen 14 mg/dL (9-20); Calcium 7.3 mg/dL (8.4-10.2); Carbon Dioxide 28 mmol/L (22-30); Chloride 103 mmol/L (98-107); Glucose 115 mg/dL (74-99); Non-African American GFR(CKD) >90 (>60 ml/min/1.73 sqM); Potassium 3.8 mmol/L (3.5-5.1); Sodium 132 mmol/L (137-145); Total Bilirubin 0.6 mg/dL (0.2-1.3); Total Protein 4.2 g/dL (6.3-8.2)
--- NOTE | 2022-07-19 07:14 | XR ---
EXAMINATION TYPE: XR chest 1V portable DATE OF EXAM: 07/19/2022 COMPARISON: 07/18/2022 HISTORY: Shortness of breath. ET tube placement TECHNIQUE: Single frontal view of the chest is obtained. FINDINGS: The ET tube is 3.9 cm above the nelda. There is an NG tube within the stomach. There is a PICC line entering the left jugular vein and terminating/R junction. Diffuse partially consolidative fluffy airspace opacities in the left lung appear slightly improved i n the interval. The right hemidiaphragm is obscured by pleural effusion and probable left lung infilt rate which is essentially unchanged compared to previous. There is no pneumothorax. The osseous structures are intact. IMPRESSION: Possible mild decrease in the left lung infiltrates is described above. Marked acute car diopulmonary disease persists as described.
[2022-07-19 07:34] LABS: C Reactive Protein 35.5 mg/dL (<1.0)
[2022-07-19] MEDS: SODIUM CHLORIDE 0.9% 1,000 ML IV SCH (08:00)
[2022-07-19] MEDS: ACETAMINOPHEN TAB 325 MG TAB PO PRN ×3 (08:20→23:29)
[2022-07-19] MEDS: FAMOTIDINE 20 MG TAB PO SCH (08:20)
[2022-07-19] MEDS: CHLORHEXIDINE GLUCONATE 15 ML CUP MUCOUS MEM SCH ×2 (08:21→22:00)
[2022-07-19] MEDS: ENOXAPARIN 40 MG/0.4 ML SYRINGE SQ SCH (08:21)
[2022-07-19] MEDS: LEVOFLOXACIN 750MG-D5W PMX 750 MG in DEXTROSE/WATER 1 150ML.BAG IVPB SCH (08:21)
--- NOTE | 2022-07-19 11:25 | P.PN ---
Subjective Progress Note Date: 07/19/22 The patient is seen at bedside and continues to be on Nimbex 2mcg/kg/min. Is on Propofol 50mcg/kg/min. Per nurse, is following command even though on sedation. Continue to intubated and on vent. Continues to be spiking fevers Objective - Vital Signs Vital signs: Vital Signs Temp 99.2 F 07/19/22 10:01 Pulse 97 07/19/22 10:01 Resp 26 H 07/19/22 10:01 BP 91/56 07/19/22 10:01 Pulse Ox 92 L 07/19/22 10:01 FiO2 60 07/19/22 11:07 Intake & Output 07/18/22 07/19/22 07/19/22 18:59 06:59 18:59 Intake Total 6153.053 9049.300 520.987 Output Total 630 1245 250 Balance 6948.590 9771.300 270.987 Weight 90.9 kg 92.8 kg Intake: IV 1087 2689 419 Invasive Line 6 10 Lactated Ringers 1,000 ml 2000 @ 999 mls/hr IV .Q1H1M [facility] Rx#:[id number] Levofloxacin 750Mg-D5w 150 150 Pmx 750 mg In Dextrose/ Water 1 150ml.bag @ 100 mls/hr IVPB Q24H [facility] Rx#: [id number] Normal Saline Pressure 27 39 9 Bag Piperacillin-Tazobactam 3 100 100 .375 gm In Sodium Chloride 0.9% 100 ml @ 25 mls/hr IVPB Q8HR [facility] Rx# :[id number] Potassium Chloride 10 meq 200 In Water For Injection 1 100ml.bag @ 100 mls/hr IVPB Q1H [facility] Rx#: [id number] Sodium Chloride 0.9% 1, 610 650 150 000 ml @ 50 mls/hr IV . Q20H [facility] Rx#:[id number] Intake, IV Titration 467.681 228.300 101.987 Amount Cisatracurium 200 mg In 227.990 81.148 Sodium Chloride 0.9% 180 ml @ 2 MCG/KG/MIN 10.596 mls/hr IV .[id number] [facility] Rx #:[id number] propofoL 1,000 mg In 239.691 147.152 101.987 Empty Bag 1 bag @ 15 MCG/ KG/MIN 7.947 mls/hr IV . [id number] [facility] Rx#:[id number] Tube Feeding 80 270 Other 60 90 Output: Urine 630 1245 250 Other: Voiding Method Indwelling Catheter Indwelling Catheter Indwelling Catheter ABP, PAP, CO, CI - Last Documented Arterial Blood Pressure 132/52 - Exam GENERAL: The patient is lying in bed and does not appear in acute distress. LUNG: Intubated on ventilator. NEUROLOGICAL: Limited because of sedation (IV Propofol 50mcg/kg/min. Also on Nimbex 2mcg/kg/min). Higher mental function: The patient is severely drowsy but is following commands (squeezing hands and wiggling toes. Cranial nerves: I had to manually open his eyes. Primary gaze is midline. The pupils are round, constricted. Wiggling her toes to commands. Motor: Strength is limited because of his condition. Squeezing hands and wi ggling hands. Cerebellum: Unable to assess. Sensation: Unable to assess light touch. Reflexes (right/left): 1+ throughout. Plantars are mute bilaterally. Some of the workup during his hospital visit consisted of: White blood cell is 15.2 thousand and predominantly neutrophilic ESR is 58 and CRP of 37.8. Ammonia level is less than 9. Drug seeing is not detected Sodium is 126, potassium 3.0, BUN 31 and a creatinine is 1.52, initial serum glucose is 136, calcium 7.6 AST of 123 and ALT of 61. Urine drug screen is negative Uringe Legionella Ag: Positive. CT of the head is reported as negative unenhanced head CT scan CT angiography of the head and neck was reported as negative. Left-sided extensive air space pneumonia. CT of chest is reported as extensive air space pulmonary infiltrates was are more on the left side. This could relate to the RDS. CSF study is clear, colorless, red blood cells 1, total nucleated cells 2, glucose is 69 and the protein is 79 (normal is 12-60). CSF Gram stain is no organisms seen. CSF VDRL nonreactive. CSF no viruses detected. CSF Oligoclonal bands: Negative Influenza A/B/RSV PCR/SARS Covid to PCR was not detected. HIV 1 and 2 antibody is not reactive Treponema Pallidum Ab: Nonreactive. MRI the brain with and without his reported as no evidence of intracranial mass, acute/subacute infarct or abnormal enhancement. Nonspecific white matter changes with a more asymmetrical left parietal region area. I personally reviewed the MRI and I do feel like the patient has some white matter lesion nonspecific otherwise there is no acute or subacute ischemia there is no enhancement there is no mass. Routine EEG is somewhat limited because of artifact. Otherwise the background is normal and there is no focal slowing, epileptiform discharges or seizure on the EEG. - Labs CBC & Chem 7: 07/19/22 06:15 07/19/22 10:00 Labs: Abnormal Lab Results - Last 24 Hours (Table) 07/16/22 07/17/22 07/18/22 Range/Units 16:15 20:10 16:30 WBC (3.8-10.6) k/uL RBC (4.30-5.90) m/uL Hgb (13.0-17.5) gm/dL Hct (39.0-53.0) % Neutrophils # (1.3-7.7) k/uL ABG pO2 (83-108) mmHg ABG HCO3 (21-25) mmol/L ABG Total CO2 (19-24) mmol/L ABG O2 Saturation (94-97) % Sodium (137-145) mmol/L Potassium 3.4 L (3.5-5.1) mmol/L Glucose (74-99) mg/dL POC Glucose (mg/dL) (70-110) mg/dL Calcium (8.4-10.2) mg/dL C-Reactive Protein (<1.0) mg/dL Total Protein (6.3-8.2) g/dL Albumin (3.5-5.0) g/dL CSF IgG (MS) 4.4 H (0.0 - 3.4) mg/dL Serum Albumin 2,710 L (3500 - 5200) mg/dL Urine Legionella Ag Positive A (Negative) 07/18/22 07/19/22 07/19/22 Range/Units 18:13 05:45 06:00 WBC (3.8-10.6) k/uL RBC (4.30-5.90) m/uL Hgb (13.0-17.5) gm/dL Hct (39.0-53.0) % Neutrophils # (1.3-7.7) k/uL ABG pO2 57 L* (83-108) mmHg ABG HCO3 27 H (21-25) mmol/L ABG Total CO2 29 H (19-24) mmol/L ABG O2 Saturation 91.7 L (94-97) % Sodium 132 L (137-145) mmol/L Potassium (3.5-5.1) mmol/L Glucose 115 H (74-99) mg/dL POC Glucose (mg/dL) 118 H (70-110) mg/dL Calcium 7.3 L (8.4-10.2) mg/dL C-Reactive Protein 35.5 H (<1.0) mg/dL Total Protein 4.2 L (6.3-8.2) g/dL Albumin 2.0 L (3.5-5.0) g/dL CSF IgG (MS) (0.0 - 3.4) mg/dL Serum Albumin (3500 - 5200) mg/dL Urine Legionella Ag (Negative) 07/19/22 07/19/22 Range/Units 06:02 06:15 WBC 13.6 H (3.8-10.6) k/uL RBC 3.76 L (4.30-5.90) m/uL Hgb 11.4 L (13.0-17.5) gm/dL Hct 34.0 L (39.0-53.0) % Neutrophils # 11.7 H (1.3-7.7) k/uL ABG pO2 (83-108) mmHg ABG HCO3 (21-25) mmol/L ABG Total CO2 (19-24) mmol/L ABG O2 Saturation (94-97) % Sodium (137-145) mmol/L Potassium (3.5-5.1) mmol/L Glucose (74-99) mg/dL POC Glucose (mg/dL) 117 H (70-110) mg/dL Calcium (8.4-10.2) mg/dL C-Reactive Protein (<1.0) mg/dL Total Protein (6.3-8.2) g/dL Albumin (3.5-5.0) g/dL CSF IgG (MS) (0.0 - 3.4) mg/dL Serum Albumin (3500 - 5200) mg/dL Urine Legionella Ag (Negative) Microbiology - Last 24 Hours (Table) 01/17/23 22:00 Blood Culture - Preliminary Blood No Growth after 72 hours 07/18/22 15:05 Urine Culture - Preliminary Urine,Catheterized 07/16/22 17:32 CSF Gram Stain - Preliminary Cerebral Spinal Fluid CSF Culture - Preliminary 07/17/22 19:50 Gram Stain - Preliminary Sputum Sputum Culture - Preliminary Assessment and Plan Assessment: Encephalopathy with some speech difficulty due to underlying pneumonia/septic encephalopathy. No underlying stroke on the MRI and no enhancement as well as the CSF study is negative for underlying meningitis or encephalitis. Patient is tachypneic, very short of breath, hypoxic and would have speech difficulty as result. On examination no word finding difficulty or difficulty repetition or following commands. Some component of metabolic encephalopathy and medication effect (Propofol and Nimbex) Bilateral pneumonia left greater than the right Hypoxic respiratory distress/respiratory failure and result intubated on v entilator. Cephalgia due to above which has resolved Hyponatremia Hypokalemia--resolved Acute kidney insufficiency AST slightly elevated and ALT--resolved Plan: Will defer the modification of antibiotic to I.D. team and Primary team. Continue neuro checks. Patient had bronchial lavage and pending result. We'll defer the rest of the medical management to the primary, ID and the ICU team The plan was discussed with his nurse. We'll continue to follow up with the patient. Time with Patient: Less than 30
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
[2022-07-19 12:04] LABS: Glucose,Whole Blood 117 mg/dL (70-110)
[2022-07-19] MEDS ORDERED: SODIUM CHLORIDE 0.9% 1,000 ML IV ONE ×2 (17:30→19:53)
[2022-07-19 17:46] LABS: Glucose,Whole Blood 108 mg/dL (70-110)
[2022-07-19] MEDS: NOREPINEPHRINE 4 MG in SODIUM CHLORIDE 0.9% 250 ML IV SCH (22:01)
[2022-07-19 23:26] LABS: Glucose,Whole Blood 126 mg/dL (70-110)
--- NOTE | 2022-07-19 23:47 | PN ---
PROGRESS NOTE DATE OF SERVICE: 07/18/2022 A 52-year-old white male. Discussed with the family. Positive infection on the cultures for Legionella. He is on Levaquin. Discussed case with Dr. Quiñones. Antibiotics have been adjusted. He remains on the ventilator. Pulse ox 94%, blood pressure 90s/50s, temperature 99, pulse 90 to 94. ASSESSMENT: Middle-age male on the vent. PHYSICAL EXAMINATION: GENERAL: Resting comfortably on the vent. LUNGS: Scattered rhonchi and wheeze. CARDIOVASCULAR: S1, S2. ABDOMEN: Soft. LABORATORY DATA: White count 14.7, hemoglobin is 12.5. ASSESSMENT: Pneumonia remains on Levaquin and Zosyn. Discussed case with Dr. Quiñones. Continue with Zosyn, Levaquin. Prognosis guarded. Wean vent as tolerated. Discussed with the family. MMODL / IJN: [id number] /
[2022-07-20] MEDS: IPRATROPIUM-ALBUTEROL 3 ML NEB INHALATION SCH ×6 (00:02→19:40)
[2022-07-20 03:59] LABS: Basophils % (A) 0 %; Eosinophils # (A) 0.3 k/uL (0-0.7); Eosinophils % (A) 2 %; HGB 11.2 gm/dL (13.0-17.5); Lymphocytes % (A) 9 %; MCH 30.7 pg (25.0-35.0); MCV 93.1 fL (80.0-100.0); Mean Platelet Volume 8.8; Monocytes # (A) 0.4 k/uL (0-1.0); Monocytes % (A) 3 %; Neutrophils # (A) 9.6 k/uL (1.3-7.7); Neutrophils % (A) 85 %; Platelet Count 270 k/uL (150-450); RBC 3.66 m/uL (4.30-5.90); RDW 14.1 % (11.5-15.5); WBC 11.3 k/uL (3.8-10.6)
[2022-07-20 04:14] LABS: ALT 44 U/L (4-49); AST 84 U/L (17-59); African American GFR (CKD) >90 (>60 ml/min/1.73 sqM); Albumin 1.8 g/dL (3.5-5.0); Alkaline Phosphatase 72 U/L (38-126); Anion Gap 3 mmol/L; Blood Urea Nitrogen 15 mg/dL (9-20); Calcium 6.8 mg/dL (8.4-10.2); Carbon Dioxide 25 mmol/L (22-30); Chloride 108 mmol/L (98-107); Glucose 118 mg/dL (74-99); Non-African American GFR(CKD) >90 (>60 ml/min/1.73 sqM); Potassium 3.9 mmol/L (3.5-5.1); Sodium 136 mmol/L (137-145); Total Bilirubin 0.5 mg/dL (0.2-1.3)
[2022-07-20] MEDS ORDERED: POTASSIUM BICARBONATE/CIT AC 20 MEQ TABLET.EFF NG-TUBE SCH (05:00)
[2022-07-20] MEDS: ARTIFICIAL TEARS-HYPROMELLOSE DROPS 15 ML BTL BOTH EYES SCH ×6 (05:07→23:07)
[2022-07-20 05:46] LABS: ABG Base Excess 0.9 mmol/L; ABG HCO3 27 mmol/L (21-25); ABG Oxygen Saturation 93.5 % (94-97); ABG PCO2 48 mmHg (35-45); ABG PH 7.35 (7.35-7.45); ABG PO2 66 mmHg (83-108); ABG TCO2 28 mmol/L (19-24); Allen Test Performed? Yes
[2022-07-20 06:14] LABS: Glucose,Whole Blood 133 mg/dL (70-110)
[2022-07-20] MEDS: INSULIN ASPART (NovoLOG) 100 UNIT/ML VIAL SQ SCH ×5 (06:14→23:14)
[2022-07-20] MEDS: SODIUM CHLORIDE 0.9% 1,000 ML IV SCH (06:14)
--- NOTE | 2022-07-20 06:56 | XR ---
EXAMINATION TYPE: XR chest 1V portable DATE OF EXAM: 07/20/2022 COMPARISON: 07/19/2022 HISTORY: Shortness of breath TECHNIQUE: Single frontal view of the chest is obtained. FINDINGS: There has been interval removal of the ET tube and left chest tube. The left jugular PICC line has been replaced with a right jugular PICC line tip of which is in the SVC/R junction. There buck s been placement of a left jugular dialysis catheter the tip which is in the SVC/RA junction. No martinez ge in the NG tube which is in the stomach.. The right pleural effusion has resolved. The left lung infiltrate has improved significantly with res olution of the infiltrate in the left upper lung zones. A retrocardiac opacity obscuring the left hem idiaphragm persists. There is no pneumothorax. The heart size is normal pulmonary vasculature is not congested. IMPRESSION: Marked improvement in the acute cardiopulmonary disease as described above. Satisfactory placement of a dialysis catheter. Removal ET tube and left chest tube with no pneumothorax.
--- NOTE | 2022-07-20 08:13 | XR ---
EXAMINATION TYPE: XR chest 1V portable DATE OF EXAM: 07/20/2022 COMPARISON: 07/19/2022 HISTORY: Tube placement TECHNIQUE: Single frontal view of the chest is obtained. FINDINGS: ET tube is 5.6 cm above the nelda. There is an NG tube within the stomach. No change in p osition of the left jugular line. The bilateral lung infiltrates are essentially unchanged compared to previous. The osseous structures are grossly intact. IMPRESSION: ET tube 5.6 cm above the nelda. No interval change in the bilateral acute cardiopulmona ry disease
[2022-07-20] MEDS: PIPERACILLIN-TAZOBACTAM 3.375 GM in SODIUM CHLORIDE 0.9% 100 ML IVPB SCH ×3 (08:24→23:06)
[2022-07-20] MEDS: ENOXAPARIN 40 MG/0.4 ML SYRINGE SQ SCH (08:25)
[2022-07-20] MEDS: CHLORHEXIDINE GLUCONATE 15 ML CUP MUCOUS MEM SCH ×2 (08:25→19:48)
[2022-07-20] MEDS: FAMOTIDINE 20 MG TAB PO SCH (08:26)
[2022-07-20] MEDS: LEVOFLOXACIN 750MG-D5W PMX 750 MG in DEXTROSE/WATER 1 150ML.BAG IVPB SCH (08:36)
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
[2022-07-20 12:07] LABS: Glucose,Whole Blood 128 mg/dL (70-110)
--- NOTE | 2022-07-20 15:34 | P.PN ---
Subjective Progress Note Date: 07/20/22 Principal diagnosis: Acute mental status changes, with expressive aphasia, secondary to primary [employer] infection, versus encephalopathy from the patient's pneumonia. S/P intubation with mechanical ventilation on July 17, for impending respiratory failure and mental status changes. Bilateral pneumonia, left greater than right, status post bronchoscopy/BAL on 07/18/2022. Legionella pneumophila pneumonia. Severe right-sided headache 52-year-old male who presents to the emergency department, via EMS, on July 15. Initially, thought to be a code stroke, but, the neurologist saw the patient may have some sort of [employer] infection, or encephalopathy secondary to an infection elsewhere. White count 15.2, with a normal hemoglobin, hematocrit, and platelet count. Coli generation studies were normal. Venous blood gases showed a pCO2 of 39 and a pH is 7.36. Sodium 126, potassium 3, chloride 92, CO2 22, normal anion gap, BUN 31, and creatinine 1.52. Glucose was normal. Calcium 7.6. AST 123 ALT 61 thyroid function were normal. Drug screen was negative. Testing for influenza, RSV, and coronavirus, were all negative. Brain CT was negative. It was not enhanced with contrast. The CT angiogram was negative for any vascular abnormality. The patient's chest x-ray showed extensive pulmonary infiltrates, left greater than right. The patient's chest CT, again showed extensive airspace infiltrates, more so on the left. The MRI of the brain showed nonspecific white matter changes with a more asymmetric left parietal region area. 07/20/2022 -- The patient remains intubated for pneumonia, and worsening respiratory failure. Urinary Legionella antigen was positive. Blood gases show pO2 of 66, pCO2 48, and a pH is 7.35. The patient is on Nimbex at 3 mcg/kg/m, propofol at 75 mcg/kg/m, saline at 50 mL an hour, and vital high protein at 54 mL an hour -- The patient remains on Levaquin and Zosyn. White count 11.3, hemoglobin 11.2, hematocrit 30 or, and platelet count 270,000. Sodium 136, potassium 3.9, chlorides 108, CO2 25, BUN 15, and creatinine 0.70. Albumin is 1.8. Chest x- ray shows diffuse bilateral airspace disease, and a properly placed endotracheal tube. The chest x-ray is essentially unchanged, when compared to the x-ray done yesterday. Objective - Vital Signs Vital signs: Vital Signs Temp 99.6 F 07/20/22 08:00 Pulse 106 H 07/20/22 11:35 Resp 26 H 07/20/22 10:00 BP 98/58 07/20/22 10:00 Pulse Ox 92 L 07/20/22 10:00 FiO2 70 07/20/22 11:26 Intake & Output 07/19/22 07/20/22 07/20/22 18:59 06:59 18:59 Intake Total 3019.926 2360.009 538 Output Total 845 1395 375 Balance 2174.926 965.009 163 Weight 95.8 kg Intake: IV 2015 1613 222 Invasive Line 6 30 30 10 Levofloxacin 750Mg-D5w 150 Pmx 750 mg In Dextrose/ Water 1 150ml.bag @ 100 mls/hr IVPB Q24H [facility] Rx#: [id number] Normal Saline Pressure 36 33 12 Bag Piperacillin-Tazobactam 3 200 .375 gm In Sodium Chloride 0.9% 100 ml @ 25 mls/hr IVPB Q8HR [facility] Rx# :[id number] Sodium Chloride 0.9% 1, 600 550 200 000 ml @ 50 mls/hr IV . Q20H [facility] Rx#:[id number] Sodium Chloride 0.9% 1, 1000 1000 000 ml @ 999 mls/hr IV . Q1H1M [facility] Rx#:[id number] Intake, IV Titration 543.926 455.009 100 Amount Cisatracurium 200 mg In 155.583 166.532 Sodium Chloride 0.9% 180 ml @ 2 MCG/KG/MIN 10.596 mls/hr IV .[id number] [facility] Rx #:[id number] propofoL 1,000 mg In 388.343 288.477 100 Empty Bag 1 bag @ 15 MCG/ KG/MIN 7.947 mls/hr IV . [id number] [facility] Rx#:[id number] Tube Feeding 460 262 216 Other 30 Output: Urine 845 1395 375 Other: Voiding Method Indwelling Catheter Indwelling Catheter Indwelling Catheter # Bowel Movements 1 ABP, PAP, CO, CI - Last Documented Arterial Blood Pressure 108/44 - Exam No acute distress, sedated, paralyzed, with an orally placed endotracheal tube. HEENT examination is grossly unremarkable. Neck supple. Full range of motion. No adenopathy thyromegaly or neck vein distention. Cardiovascular examination reveals regular rhythm rate. S1-S2 normal. No S3 or S4. No discernible murmur noted. Heart rate 92 bpm. Lungs reveal scattered rhonchi and occasional crackles. Breath sounds equal. No wheezes. Saturations 92 %. Abdomen soft bowel sounds are heard. No masses or tenderness. Extremities are intact. No cyanosis clubbing or edema. Skin is without rash or lesion. Neurologic examination cannot be adequately evaluated. - Labs CBC & Chem 7: 07/20/22 03:40 07/20/22 03:40 Labs: Abnormal Lab Results - Last 24 Hours (Table) 07/19/22 07/19/22 07/20/22 Range/Units 12:02 23:23 03:40 WBC 11.3 H (3.8-10.6) k/uL RBC 3.66 L (4.30-5.90) m/uL Hgb 11.2 L (13.0-17.5) gm/dL Hct 34.0 L (39.0-53.0) % Neutrophils # 9.6 H (1.3-7.7) k/uL ABG pCO2 (35-45) mmHg ABG pO2 (83-108) mmHg ABG HCO3 (21-25) mmol/L ABG Total CO2 (19-24) mmol/L ABG O2 Saturation (94-97) % Sodium (137-145) mmol/L Chloride (98-107) mmol/L Glucose (74-99) mg/dL POC Glucose (mg/dL) 117 H 126 H (70-110) mg/dL Calcium (8.4-10.2) mg/dL AST (17-59) U/L Total Protein (6.3-8.2) g/dL Albumin (3.5-5.0) g/dL 07/20/22 07/20/22 07/20/22 Range/Units 03:40 05:43 06:12 WBC (3.8-10.6) k/uL RBC (4.30-5.90) m/uL Hgb (13.0-17.5) gm/dL Hct (39.0-53.0) % Neutrophils # (1.3-7.7) k/uL ABG pCO2 48 H (35-45) mmHg ABG pO2 66 L (83-108) mmHg ABG HCO3 27 H (21-25) mmol/L ABG Total CO2 28 H (19-24) mmol/L ABG O2 Saturation 93.5 L (94-97) % Sodium 136 L (137-145) mmol/L Chloride 108 H (98-107) mmol/L Glucose 118 H (74-99) mg/dL POC Glucose (mg/dL) 133 H (70-110) mg/dL Calcium 6.8 L (8.4-10.2) mg/dL AST 84 H (17-59) U/L Total Protein 4.0 L (6.3-8.2) g/dL Albumin 1.8 L (3.5-5.0) g/dL Microbiology - Last 24 Hours (Table) 07/17/22 19:50 Gram Stain - Final Sputum Sputum Culture - Final 07/15/22 22:00 Blood Culture - Preliminary Blood No Growth after 96 hours 07/18/22 15:05 Urine Culture - Final Urine,Catheterized 07/16/22 17:32 CSF Gram Stain - Preliminary Cerebral Spinal Fluid CSF Culture - Preliminary Assessment and Plan Assessment: 1. Acute mental status changes, with expressive aphasia, secondary to primary [employer] infection, versus encephalopathy from the patient's pneumonia. 2. S/P intubation with mechanical ventilation on July 17, for impending respiratory failure and mental status changes. 3. Bilateral pneumonia, left greater than right, status post bronchoscopy/BAL on 07/18/2022. 4. Legionella pneumophila pneumonia. 5. Severe right-sided headache. 6. Hyponatremia and hypokalemia. 7. Mild renal insufficiency. -- The patient's currently on Levaquin and Zosyn. He has more than adequate coverage for his Legionella pneumonia. He remains on Nimbex at 3 mcg/kg/m, and propofol at 75 mcg/kg/m. He is getting tube feeds at goal. Labs are reviewed. X-rays a medications are reviewed. We will continue to follow and make recommendations where appropriate. Prognosis remains guarded.
--- NOTE | 2022-07-20 16:56 | P.PN ---
Subjective Progress Note Date: 07/20/22 Principal diagnosis: Fever and pneumonia Patient is a 52-year-old male who was brought into the ER via EMS and police after apparently the patient was noticed to be altered mentally when he was stopped by the state wildlife officer patient apparently was followed [place] the state wildlife officer on the express[place] the patient was receiving and not pulling immediately but no accident has happened, patient wasn't to be slightly confused and oxygen with a question of possible pneumonia patient also have a CSF examination which came back to be negative. On today's evaluation that is 07/20/2022 the patient fever pattern has improved T-max of 99.9F, the patient is hemodynamically stable not requiring pressor support per the nursing staff , the patient remains to be intubated on the vent and FiO2 is up to 70 % today, no vomiting or diarrhea reported by the nursing staff Objective - Vital Signs Vital signs: Vital Signs Temp 98.3 F 07/20/22 11:00 Pulse 99 07/20/22 15:26 Resp 26 H 07/20/22 14:00 BP 114/60 07/20/22 14:00 Pulse Ox 89 L 07/20/22 14:00 FiO2 70 07/20/22 15:19 Intake & Output 07/19/22 07/20/22 07/20/22 18:59 06:59 18:59 Intake Total 3019.926 2360.009 1326 Output Total 845 1395 710 Balance 2174.926 965.009 616 Weight 95.8 kg Intake: IV 2015 1613 544 Invasive Line 6 30 30 20 Levofloxacin 750Mg-D5w 150 Pmx 750 mg In Dextrose/ Water 1 150ml.bag @ 100 mls/hr IVPB Q24H [facility] Rx#: [id number] Normal Saline Pressure 36 33 24 Bag Piperacillin-Tazobactam 3 200 100 .375 gm In Sodium Chloride 0.9% 100 ml @ 25 mls/hr IVPB Q8HR [facility] Rx# :[id number] Sodium Chloride 0.9% 1, 600 550 400 000 ml @ 50 mls/hr IV . Q20H [facility] Rx#:[id number] Sodium Chloride 0.9% 1, 1000 1000 000 ml @ 999 mls/hr IV . Q1H1M [facility] Rx#:[id number] Intake, IV Titration 543.926 455.009 350 Amount Cisatracurium 200 mg In 155.583 166.532 Sodium Chloride 0.9% 180 ml @ 2 MCG/KG/MIN 10.596 mls/hr IV .[id number] [facility] Rx #:[id number] Levofloxacin 750Mg-D5w 150 Pmx 750 mg In Dextrose/ Water 1 150ml.bag @ 100 mls/hr IVPB Q24H [facility] Rx#: [id number] propofoL 1,000 mg In 388.343 288.477 200 Empty Bag 1 bag @ 15 MCG/ KG/MIN 7.947 mls/hr IV . [id number] [facility] Rx#:[id number] Tube Feeding 460 262 432 Other 30 Output: Urine 845 1395 710 Other: Voiding Method Indwelling Catheter Indwelling Catheter Indwelling Catheter # Bowel Movements 1 ABP, PAP, CO, CI - Last Documented Arterial Blood Pressure 136/56 - Exam GENERAL DESCRIPTION: A middle-aged male intubated on the vent RESPIRATORY SYSTEM: Unlabored breathing , coarse breath sounds bilaterally HEART: S1 S2 regular rate and rhythm , ABDOMEN: Soft , no tenderness EXTREMITIES: No edema feet - Labs CBC & Chem 7: 07/20/22 03:40 07/20/22 03:40 Labs: Abnormal Lab Results - Last 24 Hours (Table) 07/19/22 07/20/22 07/20/22 Range/Units 23:23 03:40 03:40 WBC 11.3 H (3.8-10.6) k/uL RBC 3.66 L (4.30-5.90) m/uL Hgb 11.2 L (13.0-17.5) gm/dL Hct 34.0 L (39.0-53.0) % Neutrophils # 9.6 H (1.3-7.7) k/uL ABG pCO2 (35-45) mmHg ABG pO2 (83-108) mmHg ABG HCO3 (21-25) mmol/L ABG Total CO2 (19-24) mmol/L ABG O2 Saturation (94-97) % Sodium 136 L (137-145) mmol/L Chloride 108 H (98-107) mmol/L Glucose 118 H (74-99) mg/dL POC Glucose (mg/dL) 126 H (70-110) mg/dL Calcium 6.8 L (8.4-10.2) mg/dL AST 84 H (17-59) U/L Total Protein 4.0 L (6.3-8.2) g/dL Albumin 1.8 L (3.5-5.0) g/dL 07/20/22 07/20/22 07/20/22 Range/Units 05:43 06:12 12:06 WBC (3.8-10.6) k/uL RBC (4.30-5.90) m/uL Hgb (13.0-17.5) gm/dL Hct (39.0-53.0) % Neutrophils # (1.3-7.7) k/uL ABG pCO2 48 H (35-45) mmHg ABG pO2 66 L (83-108) mmHg ABG HCO3 27 H (21-25) mmol/L ABG Total CO2 28 H (19-24) mmol/L ABG O2 Saturation 93.5 L (94-97) % Sodium (137-145) mmol/L Chloride (98-107) mmol/L Glucose (74-99) mg/dL POC Glucose (mg/dL) 133 H 128 H (70-110) mg/dL Calcium (8.4-10.2) mg/dL AST (17-59) U/L Total Protein (6.3-8.2) g/dL Albumin (3.5-5.0) g/dL Microbiology - Last 24 Hours (Table) 07/19/22 12:10 Blood Culture - Preliminary Blood No Growth after 24 hours 07/17/22 19:50 Gram Stain - Final Sputum Sputum Culture - Final 07/15/22 22:00 Blood Culture - Preliminary Blood No Growth after 96 hours 07/18/22 15:05 Urine Culture - Final Urine,Catheterized 07/16/22 17:32 CSF Gram Stain - Preliminary Cerebral Spinal Fluid CSF Culture - Preliminary Assessment and Plan (1) Pneumonia Current Visit: Yes Status: Acute Code(s): J18.9 - PNEUMONIA, UNSPECIFIED ORGANISM SNOMED Code(s): 808183770 Plan: 1patient is in the hospital mental status changes in this patient who did have evidence of fever and elevated white count patient currently denies having any headache to me however he didn't mention it to the neurologist underlying meningitis and encephalitis has been ruled out in this patient also have evidence of extensive pneumonia and will need to cover for the gram-positive as well as gram-negative pathogen 2patient urine for Legionella antigen came back positive, sputum and bronchoscopy cultures are currently pending 3patient seemed to showing some clinical improvement and white count has come down to 11.1, patient to continue the Zosyn and Levaquin while waiting for condition to stabilize and monitor clinical course closely Family at the bedside questions were answered Time with Patient: Less than 30
[2022-07-20 18:40] LABS: Glucose,Whole Blood 119 mg/dL (70-110)
[2022-07-20] MEDS: CISATRACURIUM 200 MG in SODIUM CHLORIDE 0.9% 180 ML IV SCH (18:41)
[2022-07-20] MEDS: NOREPINEPHRINE 4 MG in SODIUM CHLORIDE 0.9% 250 ML IV SCH (23:14)
[2022-07-20 23:16] LABS: Glucose,Whole Blood 98 mg/dL (70-110)
[2022-07-21] MEDS: IPRATROPIUM-ALBUTEROL 3 ML NEB INHALATION SCH ×6 (00:07→20:33)
[2022-07-21] MEDS: CISATRACURIUM 200 MG in SODIUM CHLORIDE 0.9% 180 ML IV SCH ×2 (03:25→15:30)
[2022-07-21] MEDS: SODIUM CHLORIDE 0.9% 1,000 ML IV SCH ×2 (03:25→21:25)
[2022-07-21] MEDS: ARTIFICIAL TEARS-HYPROMELLOSE DROPS 15 ML BTL BOTH EYES SCH ×6 (04:03→23:17)
[2022-07-21 04:21] LABS: HCT 33.5 % (39.0-53.0); HGB 10.9 gm/dL (13.0-17.5); MCH 30.5 pg (25.0-35.0); MCHC 32.4 g/dL (31.0-37.0); MCV 94.3 fL (80.0-100.0); Mean Platelet Volume 8.4; Platelet Count 329 k/uL (150-450); RBC 3.56 m/uL (4.30-5.90); RDW 14.3 % (11.5-15.5); WBC 10.6 k/uL (3.8-10.6)
[2022-07-21 04:35] LABS: African American GFR (CKD) >90 (>60 ml/min/1.73 sqM); Anion Gap 1 mmol/L; Blood Urea Nitrogen 16 mg/dL (9-20); Calcium 7.2 mg/dL (8.4-10.2); Carbon Dioxide 31 mmol/L (22-30); Chloride 106 mmol/L (98-107); Glucose 108 mg/dL (74-99); Magnesium 1.9 mg/dL (1.6-2.3); Non-African American GFR(CKD) >90 (>60 ml/min/1.73 sqM); Potassium 3.9 mmol/L (3.5-5.1); Sodium 138 mmol/L (137-145)
[2022-07-21] MEDS ORDERED: Potassium Replacement Protocol 1 EACH MISC MISCELLANE PRN (04:42)
[2022-07-21] MEDS ORDERED: Magnesium Replacement Protocol 1 EACH MISC MISCELLANE PRN (04:42)
[2022-07-21] MEDS: MAGNESIUM SULFATE-D5W PMX 1 GM in DEXTROSE/WATER 1 100ML.BAG IVPB SCH ×2 (04:48→06:01)
[2022-07-21] MEDS ORDERED: POTASSIUM BICARBONATE/CIT AC 20 MEQ TABLET.EFF NG-TUBE SCH (05:00)
[2022-07-21 06:10] LABS: Glucose,Whole Blood 123 mg/dL (70-110)
[2022-07-21 06:11] LABS: ABG Base Excess 5.8 mmol/L; ABG HCO3 31 mmol/L (21-25); ABG Oxygen Saturation 93.1 % (94-97); ABG PCO2 50 mmHg (35-45); ABG PO2 64 mmHg (83-108); ABG TCO2 32 mmol/L (19-24)
[2022-07-21] MEDS: INSULIN ASPART (NovoLOG) 100 UNIT/ML VIAL SQ SCH ×4 (07:05→23:17)
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
[2022-07-21] MEDS: LEVOFLOXACIN 750MG-D5W PMX 750 MG in DEXTROSE/WATER 1 150ML.BAG IVPB SCH (08:30)
[2022-07-21] MEDS: ENOXAPARIN 40 MG/0.4 ML SYRINGE SQ SCH (08:30)
[2022-07-21] MEDS: CHLORHEXIDINE GLUCONATE 15 ML CUP MUCOUS MEM SCH ×2 (08:30→20:12)
[2022-07-21] MEDS: FAMOTIDINE 20 MG TAB PO SCH (08:30)
[2022-07-21] MEDS: PIPERACILLIN-TAZOBACTAM 3.375 GM in SODIUM CHLORIDE 0.9% 100 ML IVPB SCH ×3 (08:30→23:18)
--- NOTE | 2022-07-21 08:55 | XR ---
EXAMINATION TYPE: XR chest 1V portable DATE OF EXAM: 07/21/2022 COMPARISON: 07/20/2022 HISTORY: Tube placement TECHNIQUE: Single frontal view of the chest is obtained. FINDINGS: Left IJ central venous catheter tip is within the high right atrium and unchanged. Orogast noemí tube and endotracheal tube are unchanged. There are increased patchy right perihilar and right ba silar airspace opacities and there is obscuration of the right hemidiaphragm. Patchy airspace opaciti es in the left lung are probably unchanged when accounting for changes in technique. There is left ap ical consolidation. IMPRESSION: Probable slight worsening of right perihilar and basilar airspace disease with likely un derlying pleural effusion. Findings on the left including the left apical consolidation are fairly st able.
[2022-07-21 11:28] LABS: Glucose,Whole Blood 101 mg/dL (70-110)
--- NOTE | 2022-07-21 12:20 | CDI ---
Documentation Clarification Form Date: 07/18/2022 3:35:00 PM From: Deanne Osborn RN,CCDS Admit Date: 07/15/2022 9:41:00 PM Patient Name: Moriah Arndt Visit Number: [id number] Discharge Date: ATTENTION: The Clinical Documentation Specialists (CDI) and [facility] Coding Staff appreciate your assistance in clarifying documentation. Please respond to the clarification below the line at the bottom and electronically sign. The CDI & [facility] Coding staff will review the response and follow-up if needed. Please note: Queries are made part of the Legal Health Record. If you have any questions, please contact the author of this message via ITS. Dr. Kristopher Wyatt The patient presented with mental status changes, fever and elevated white count. Additional clarification regarding the etiology/cause of the clinical indicators is requested. History/Risk Factors: COVID-19 07/16 ID Consult: Patient in the hospital mental status changes in this patient who did have evidence of fever and elevated count. Pneumonia 07/16 Neurology consult: Encephalopathy due to sepsis and appears underlying pneumonia. Also, patient has underlying metabolic encephalopathy. Clinical Indicators: 52-year-old female with altered mental status. A/OX2. He was having expressive aphasia. 07/15 Labs: WBC: 15.2, Sodium 126, bun 31, Cr 1.52 GFR 53 07/15 Blood cultures: No growth after 48 hours 07/15@ 17: 45 Vital signs: 119/74 110 18 103.1 91 % RA 07/15 @ 18:00 VS: 139/75 105 103.2 92 % RA 07/15 CXR: Extensive pulmonary infiltrates that could be developing RDS. Congestive heart failure also possible. Treatment: ICU/Telemetry monitoring Rocephin 2 GM IVPB Q 24 HRS 07/16-07/17, Cefepime 2 GM IVPB Q 12 08/15-07/16 Vancomycin 2,000 MG IVPB07/15 (PTD) then 1,500MG IVPB Q 16 HRS 07/16-07/17 Acyclovir 800 MG IVPB Q 8 HRS 07/16-07/17 .9NS 1,000 IV 07/15 then @ 130MLS/HR 07/16-07/17 In your professional opinion, please clarify if these findings signify one of the following conditions: [ ] Sepsis, due to pneumonia POA [ ] Sepsis ruled out [ ] Severe Sepsis with organ failure, due to pneumonia, POA [ ] Other, please specify [ ] Unable to determine SIRS Criteria: 2 or more of the following may indicate SIRS -Temperature < 96.8F (36C) or > 101.0F (38.3C) -Heart Rate > 90 bpm -Respiratory Rate > 20 breaths/min or PaCO2 < 32 mmHg -White Blood Cell Count > 12,000 or < 4,000 cells/mm3 or > 10% bands (Template Last Reviewed: July 2020) MTDD
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
[2022-07-21 18:20] LABS: Glucose,Whole Blood 226 mg/dL (70-110)
[2022-07-21] MEDS ORDERED: MAGNESIUM HYDROXIDE 2,400 MG/10 ML CUP PO PRN (18:20)
[2022-07-21 18:31] LABS: Glucose,Whole Blood 105 mg/dL (70-110)
[2022-07-21] MEDS: NOREPINEPHRINE 4 MG in SODIUM CHLORIDE 0.9% 250 ML IV SCH (19:52)
[2022-07-21 23:14] LABS: Glucose,Whole Blood 94 mg/dL (70-110)
[2022-07-22] MEDS: IPRATROPIUM-ALBUTEROL 3 ML NEB INHALATION SCH ×6 (00:46→20:56)
[2022-07-22 01:30] LABS: Glucose,Whole Blood 89 mg/dL (70-110)
--- NOTE | 2022-07-22 03:09 | PN ---
PROGRESS NOTE A 52-year-old white male presenting with legionnaires disease with severe left-sided or right-sided pneumonia, on respiratory ventilator. The patient is very guarded. He remains sedated on propofol and Nimbex. of 26, tidal volume 450, FiO2 of 70, PEEP of 13, peak airway pressure of 34. Chest x-ray reviewed. ET tube in good place. . HIV is negative. Lumbar puncture negative. CSF cultures are negative. Treating with Levaquin for legionnaires disease. Enteral tube feeding has been ordered. Medications reviewed. OBJECTIVE: VITAL SIGNS: Temperature 97.9 pulse 102, respiratory rate 26, blood pressure 120/71, O2 of 93%, FiO2 of 70%. GENERAL: He remains in no acute distress. Sedated on the ventilator. HEENT: Normal. NECK: Normal. CARDIOVASCULAR: S1, S2. LUNGS: Scattered rhonchi and wheeze. Decreased breath sounds, left greater than right. EXTREMITIES: No cyanosis, clubbing, or edema. ABG and labs are reviewed. ASSESSMENT: Acute legionnaires disease secondary to hypoxic respiratory failure, severe left-sided pneumonia as well as right-sided pneumonia, hypoxemic respiratory failure secondary to above, on mechanical ventilator, extensive bilateral pneumonia with consolidations, hyponatremia, leukocytosis, history of alcoholism. Continue with antibiotics, sedation. Wean off vent as tolerated. Prognosis extremely guarded on this patient. Continue with IV fluids tube feeding. Broad-spectrum antibiotics. Wean vent as tolerated. Prognosis guarded. Continue with Zosyn, Levaquin. Please see further [facility] orders as well as Infectious Disease. MMODL / IJN: [id number] /
[2022-07-22 04:09] LABS: Basophils # (A) 0.1 k/uL (0-0.2); Basophils % (A) 1 %; Eosinophils # (A) 0.2 k/uL (0-0.7); Eosinophils % (A) 2 %; HCT 36.2 % (39.0-53.0); HGB 11.8 gm/dL (13.0-17.5); Lymphocytes # (A) 1.2 k/uL (1.0-4.8); Lymphocytes % (A) 12 %; MCH 30.7 pg (25.0-35.0); MCHC 32.7 g/dL (31.0-37.0); Monocytes # (A) 0.3 k/uL (0-1.0); Monocytes % (A) 3 %; Neutrophils # (A) 8.4 k/uL (1.3-7.7); Neutrophils % (A) 82 %; Platelet Count 383 k/uL (150-450); RBC 3.85 m/uL (4.30-5.90); WBC 10.2 k/uL (3.8-10.6)
[2022-07-22] MEDS: ARTIFICIAL TEARS-HYPROMELLOSE DROPS 15 ML BTL BOTH EYES SCH ×5 (04:12→20:50)
[2022-07-22 04:20] LABS: African American GFR (CKD) >90 (>60 ml/min/1.73 sqM); Anion Gap 2 mmol/L; Blood Urea Nitrogen 17 mg/dL (9-20); Calcium 7.4 mg/dL (8.4-10.2); Carbon Dioxide 33 mmol/L (22-30); Chloride 105 mmol/L (98-107); Glucose 97 mg/dL (74-99); Non-African American GFR(CKD) >90 (>60 ml/min/1.73 sqM); Potassium 3.9 mmol/L (3.5-5.1); Sodium 140 mmol/L (137-145)
[2022-07-22] MEDS: CISATRACURIUM 200 MG in SODIUM CHLORIDE 0.9% 180 ML IV SCH ×2 (04:29→20:45)
[2022-07-22] MEDS ORDERED: POTASSIUM BICARBONATE/CIT AC 20 MEQ TABLET.EFF NG-TUBE SCH (05:00)
[2022-07-22] MEDS: INSULIN ASPART (NovoLOG) 100 UNIT/ML VIAL SQ SCH ×3 (05:25→18:44)
[2022-07-22 05:27] LABS: Glucose,Whole Blood 98 mg/dL (70-110)
[2022-07-22 05:53] LABS: ABG Base Excess 9.6 mmol/L; ABG HCO3 34 mmol/L (21-25); ABG Oxygen Saturation 95.6 % (94-97); ABG PCO2 48 mmHg (35-45); ABG PH 7.45 (7.35-7.45); ABG PO2 74 mmHg (83-108); ABG TCO2 35 mmol/L (19-24); Allen Test Performed? Yes
[2022-07-22] MEDS: ENOXAPARIN 40 MG/0.4 ML SYRINGE SQ SCH (08:12)
[2022-07-22] MEDS: FAMOTIDINE 20 MG TAB PO SCH (08:12)
[2022-07-22] MEDS: CHLORHEXIDINE GLUCONATE 15 ML CUP MUCOUS MEM SCH ×2 (08:12→20:49)
[2022-07-22] MEDS: LEVOFLOXACIN 750MG-D5W PMX 750 MG in DEXTROSE/WATER 1 150ML.BAG IVPB SCH (08:12)
[2022-07-22] MEDS: PIPERACILLIN-TAZOBACTAM 3.375 GM in SODIUM CHLORIDE 0.9% 100 ML IVPB SCH ×2 (08:13→16:11)
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
--- NOTE | 2022-07-22 09:03 | XR ---
EXAMINATION TYPE: XR chest 1V portable DATE OF EXAM: 07/22/2022 COMPARISON: 07/21/2022 HISTORY: Tube placement TECHNIQUE: Single frontal view of the chest is obtained. FINDINGS: Endotracheal tube unchanged in position. Orogastric tube is slightly withdrawn and likely within the distal esophagus. Left IJ central venous catheter with tip in the high right atrium. Patch y right lower lung and left apical opacities are unchanged as are somewhat diffuse left lung airspace opacities. No pneumothorax. IMPRESSION: 1. No significant interval change. 2. Orogastric tube likely within the distal esophagus and should be advanced about 8 cm..
[2022-07-22] MEDS: FUROSEMIDE 10 MG/ML 4 ML VIAL IV SCH ×2 (09:55→20:49)
--- NOTE | 2022-07-22 11:22 | CT ---
EXAMINATION TYPE: CT chest wo con DATE OF EXAM: 07/22/2022 COMPARISON: 07/16/2022 HISTORY: evaluate pleural effusion Unenhanced CT of the chest was performed with lung and mediastinal window settings submitted. The la ck of contrast limits evaluation of the vascular, mediastinal and parenchymal structures including th e upper abdomen. LUNGS: Bilateral pleural effusions noted on the right measuring estimated 4.7 cm AP dimension on the left approximately 2.3 cm. Streak artifact limits evaluation. There are bilateral airspace infiltrate s quite large on the left and smaller and more multifocal on the right. Air bronchograms noted at the lung bases. Endotracheal tube is appropriately placed. NG tube is seen coursing into the stomach. No evidence for pneumothorax. MEDIASTINUM/SUNITHA: Thoracic aorta is of normal caliber with limited evaluation given lack of contrast . The heart is not enlarged. No evidence for mediastinal mass. No lymph nodes greater than 1cm. UPPER ABDOMEN: Left renal calculus. NG tube. Probable left hepatic cyst. OTHER: No significant other abnormality. IMPRESSION: 1. Progressive airspace infiltrates and pleural effusions. Correlate for ARDS and/or pneumonia.
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
[2022-07-22 12:37] LABS: Glucose,Whole Blood 92 mg/dL (70-110)
[2022-07-22] MEDS: fentaNYL (PF). 1,000 MCG in SODIUM CHLORIDE 0.9% 80 ML IV SCH ×2 (14:30→22:43)
--- NOTE | 2022-07-22 17:04 | P.PN ---
Subjective Progress Note Date: 07/22/22 Patient was seen for a follow-up. Patient initially seen by Dr. Thierno Case. Please refer to his note for details. Patient is a 52-year-old male who was initially consulted for expressive aphasia. Daksha Case felt it was more respiratory issues causing speech difficulty. All neurological workup has been negative. CSF was normal. Patient probably has septic encephalopathy. He is intubated on ventilator. Patient is currently intubated, sedated. He is on fentanyl 1 mcg/kg/h, also on propofol 50 mcg/kg/m. despite sedation, he is responding as per examination. He denies headache. Some of the workup during his hospital visit consisted of: White blood cell is 15.2 thousand and predominantly neutrophilic ESR is 58 and CRP of 37.8. Ammonia level is less than 9. Drug seeing is not detected Sodium is 126, potassium 3.0, BUN 31 and a creatinine is 1.52, initial serum glucose is 136, calcium 7.6 AST of 123 and ALT of 61. Urine drug screen is negative Uringe Legionella Ag: Positive. CT of the head is reported as negative unenhanced head CT scan CT angiography of the head and neck was reported as negative. Left-sided extensive air space pneumonia. CT of chest is reported as extensive air space pulmonary infiltrates was are more on the left side. This could relate to the RDS. CSF study is clear, colorless, red blood cells 1, total nucleated cells 2, gluco se is 69 and the protein is 79 (normal is 12-60). CSF Gram stain is no organisms seen. CSF VDRL nonreactive. CSF no viruses detected. CSF Oligoclonal bands: Negative Influenza A/B/RSV PCR/SARS Covid to PCR was not detected. HIV 1 and 2 antibody is not reactive Treponema Pallidum Ab: Nonreactive. MRI the brain with and without his reported as no evidence of intracranial mass, acute/subacute infarct or abnormal enhancement. Nonspecific white matter changes with a more asymmetrical left parietal region area. I personally reviewed the MRI and I do feel like the patient has some white matter lesion nonspecific otherwise there is no acute or subacute ischemia there is no enhancement there is no mass. Routine EEG is somewhat limited because of artifact. Otherwise the background is normal and there is no focal slowing, epileptiform discharges or seizure on the EEG. Objective - Vital Signs Vital signs: Vital Signs Temp 99.2 F 07/22/22 12:00 Pulse 97 07/22/22 16:03 Resp 26 H 07/22/22 15:00 BP 102/58 07/22/22 15:00 Pulse Ox 94 L 07/22/22 15:00 FiO2 70 07/22/22 15:54 Intake & Output 07/21/22 07/22/22 07/22/22 18:59 06:59 18:59 Intake Total 6942.597 1222.743 924.621 Output Total 1865 1525 1310 Balance -27.005 122.743 -385.379 Weight 101.6 kg 100.8 kg 99.9 kg Intake: IV 826 722 490 A-line pressure bag 33 30 CVP line 33 30 Levofloxacin 750Mg-D5w 150 150 Pmx 750 mg In Dextrose/ Water 1 150ml.bag @ 100 mls/hr IVPB Q24H [facility] Rx#: [id number] Normal Saline Pressure 66 6 Bag Piperacillin-Tazobactam 3 100 100 100 .375 gm In Sodium Chloride 0.9% 100 ml @ 25 mls/hr IVPB Q8HR [facility] Rx# :[id number] Sodium Chloride 0.9% 1, 510 550 180 000 ml @ 50 mls/hr IV . Q20H [facility] Rx#:[id number] Intake, IV Titration 593.995 631.743 370.621 Amount Cisatracurium 200 mg In 200.000 200 109.404 Sodium Chloride 0.9% 180 ml @ 2 MCG/KG/MIN 10.596 mls/hr IV .[id number] [facility] Rx #:[id number] fentaNYL (PF). 1,000 mcg 5.544 In Sodium Chloride 0.9% 80 ml @ 0.5 MCG/KG/HR 5. 04 mls/hr IV .[id number] [facility] Rx#:[id number] propofoL 1,000 mg In 393.995 431.743 255.673 Empty Bag 1 bag @ 15 MCG/ KG/MIN 7.947 mls/hr IV . [id number] [facility] Rx#:[id number] Tube Feeding 298 204 34 Other 120 90 30 Output: Urine 1865 1525 1310 Other: Voiding Method Indwelling Catheter Indwelling Catheter Indwelling Catheter ABP, PAP, CO, CI - Last Documented Arterial Blood Pressure 112/49 - Exam GENERAL: The patient is lying in bed and does not appear in acute distress. LUNG: Intubated on ventilator. NEUROLOGICAL: Patient was sleeping, but woke up and participated in examination. He is still on IV Propofol 50mcg/kg/min. patient is off Nimbex. Higher mental function: The patient wakes up, and follows commands very well. Cranial nerves: Pupils are equal, round and reacting, visual velez are full on confrontation. Patient is intubated. Patient's comprehension is perfectly intact. Face appears symmetric although difficult to assess because of intubation. Motor: Strength is 4+ in the slag skimmer, 5 at the biceps and triceps, ankles are 5 bilaterally. Hip flexion 4+5-bilaterally. Cerebellum: Not able to be assessed, as he is in 2-point restraints. Sensation: Sensations equal to touch. Reflexes (right/left): Very hyperactive to almost absent. Plantars are downgoing bilaterally. - Labs CBC & Chem 7: 07/23/22 03:40 07/23/22 03:40 Labs: Abnormal Lab Results - Last 24 Hours (Table) 07/21/22 07/22/22 07/22/22 Range/Units 18:14 03:50 03:50 RBC 3.85 L (4.30-5.90) m/uL Hgb 11.8 L (13.0-17.5) gm/dL Hct 36.2 L (39.0-53.0) % Neutrophils # 8.4 H (1.3-7.7) k/uL ABG pCO2 (35-45) mmHg ABG pO2 (83-108) mmHg ABG HCO3 (21-25) mmol/L ABG Total CO2 (19-24) mmol/L Carbon Dioxide 33 H (22-30) mmol/L Creatinine 0.65 L (0.66-1.25) mg/dL POC Glucose (mg/dL) 226 H (70-110) mg/dL Calcium 7.4 L (8.4-10.2) mg/dL Triglycerides (0.00-149.00) mg/dL 07/22/22 07/22/22 Range/Units 05:42 11:00 RBC (4.30-5.90) m/uL Hgb (13.0-17.5) gm/dL Hct (39.0-53.0) % Neutrophils # (1.3-7.7) k/uL ABG pCO2 48 H (35-45) mmHg ABG pO2 74 L (83-108) mmHg ABG HCO3 34 H (21-25) mmol/L ABG Total CO2 35 H (19-24) mmol/L Carbon Dioxide (22-30) mmol/L Creatinine (0.66-1.25) mg/dL POC Glucose (mg/dL) (70-110) mg/dL Calcium (8.4-10.2) mg/dL Triglycerides 526.00 H (0.00-149.00) mg/dL Microbiology - Last 24 Hours (Table) 07/19/22 12:10 Blood Culture - Preliminary Blood No Growth after 72 hours 07/15/22 22:00 Blood Culture - Final Blood No Growth after 144 hours Assessment and Plan Assessment: Altered mental status, likely due to toxic metabolic encephalopathy. No evid ence of acute CVA on MRI. Current examination nonfocal. Some component of metabolic encephalopathy and medication effect (Propofol) Bilateral pneumonia due to Legionella, left greater than the right Hypoxic respiratory distress/respiratory failure and result intubated on ventilator. Cephalgia due to above which has resolved Hyponatremia Hypokalemia--resolved Acute kidney insufficiency AST slightly elevated and ALT--resolved Plan: Patient currently on Zosyn and Levaquin. Continue neuro checks every shift. Patient had bronchial lavage. Patient's neurological examination is completely intact. He is mildly encephalopathic cause of being on propofol. We'll defer the rest of the medical management to the primary, ID and the ICU team Neurology will follow.
[2022-07-22 18:11] LABS: Glucose,Whole Blood 96 mg/dL (70-110)
[2022-07-22] MEDS: NOREPINEPHRINE 4 MG in SODIUM CHLORIDE 0.9% 250 ML IV SCH (20:46)
[2022-07-22 23:30] LABS: Glucose,Whole Blood 107 mg/dL (70-110)
[2022-07-23] MEDS: IPRATROPIUM-ALBUTEROL 3 ML NEB INHALATION SCH ×7 (00:02→23:37)
[2022-07-23] MEDS: ARTIFICIAL TEARS-HYPROMELLOSE DROPS 15 ML BTL BOTH EYES SCH ×4 (00:18→11:51)
[2022-07-23] MEDS: INSULIN ASPART (NovoLOG) 100 UNIT/ML VIAL SQ SCH ×5 (00:18→23:01)
[2022-07-23] MEDS: PIPERACILLIN-TAZOBACTAM 3.375 GM in SODIUM CHLORIDE 0.9% 100 ML IVPB SCH ×4 (00:22→23:03)
[2022-07-23 04:10] LABS: Basophils # (A) 0.1 k/uL (0-0.2); Basophils % (A) 1 %; Eosinophils # (A) 0.2 k/uL (0-0.7); Eosinophils % (A) 2 %; HCT 33.7 % (39.0-53.0); HGB 11.2 gm/dL (13.0-17.5); Lymphocytes # (A) 1.2 k/uL (1.0-4.8); Lymphocytes % (A) 13 %; MCH 31.1 pg (25.0-35.0); MCHC 33.3 g/dL (31.0-37.0); MCV 93.6 fL (80.0-100.0); Mean Platelet Volume 7.7; Monocytes # (A) 0.2 k/uL (0-1.0); Monocytes % (A) 3 %; Neutrophils # (A) 7.5 k/uL (1.3-7.7); Neutrophils % (A) 81 %; Platelet Count 405 k/uL (150-450); RDW 13.7 % (11.5-15.5); WBC 9.3 k/uL (3.8-10.6)
[2022-07-23 04:36] LABS: African American GFR (CKD) >90 (>60 ml/min/1.73 sqM); Anion Gap 3 mmol/L; Blood Urea Nitrogen 24 mg/dL (9-20); Calcium 7.3 mg/dL (8.4-10.2); Carbon Dioxide 36 mmol/L (22-30); Chloride 102 mmol/L (98-107); Glucose 102 mg/dL (74-99); Magnesium 1.8 mg/dL (1.6-2.3); Non-African American GFR(CKD) >90 (>60 ml/min/1.73 sqM); Potassium 3.5 mmol/L (3.5-5.1); Sodium 141 mmol/L (137-145)
[2022-07-23] MEDS: POTASSIUM BICARBONATE/CIT AC 20 MEQ TABLET.EFF NG-TUBE SCH ×2 (05:00→06:05)
[2022-07-23] MEDS: MAGNESIUM SULFATE-D5W PMX 1 GM in DEXTROSE/WATER 1 100ML.BAG IVPB SCH ×2 (05:00→06:05)
[2022-07-23 05:11] LABS: Glucose,Whole Blood 97 mg/dL (70-110)
[2022-07-23 05:47] LABS: ABG Base Excess 12.6 mmol/L; ABG HCO3 36 mmol/L (21-25); ABG Oxygen Saturation 97.1 % (94-97); ABG PCO2 51 mmHg (35-45); ABG PH 7.46 (7.35-7.45); ABG PO2 87 mmHg (83-108); ABG TCO2 38 mmol/L (19-24); Allen Test Performed? Yes
--- NOTE | 2022-07-23 06:26 | XR ---
EXAMINATION TYPE: XR chest 1V portable DATE OF EXAM: 07/23/2022 CLINICAL HISTORY: Difficulty breathing progress study. TECHNIQUE: Single AP portable semiupright view of the chest is obtained. COMPARISON: Chest x-ray and CT chest from one day earlier FINDINGS: Stable endotracheal and orogastric tubes. Stable left-sided internal jugular central venou s catheter. Persistent left upper lung along with right greater than left bilateral lower lung opacities and smal l bilateral pleural effusions. Cardiac limits are stable and within normal limits. Osseous structures are intact. IMPRESSION: Small bilateral pleural effusions with right greater than left bibasilar acute infiltrate s and/or atelectasis and left upper lobe acute infiltrate all redemonstrated. No significant change f rom one day earlier.
[2022-07-23] MEDS: ENOXAPARIN 40 MG/0.4 ML SYRINGE SQ SCH (08:16)
[2022-07-23] MEDS: FUROSEMIDE 10 MG/ML 4 ML VIAL IV SCH ×2 (08:16→20:44)
[2022-07-23] MEDS: FAMOTIDINE 20 MG TAB PO SCH (08:17)
[2022-07-23] MEDS: LEVOFLOXACIN 750MG-D5W PMX 750 MG in DEXTROSE/WATER 1 150ML.BAG IVPB SCH (08:17)
[2022-07-23] MEDS: CHLORHEXIDINE GLUCONATE 15 ML CUP MUCOUS MEM SCH ×2 (08:17→20:43)
[2022-07-23] MEDS: fentaNYL (PF). 1,000 MCG in SODIUM CHLORIDE 0.9% 80 ML IV SCH ×2 (09:03→18:33)
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
[2022-07-23] MEDS: CISATRACURIUM 200 MG in SODIUM CHLORIDE 0.9% 180 ML IV SCH (10:59)
--- NOTE | 2022-07-23 11:23 | PN ---
PROGRESS NOTE SUBJECTIVE: Remains on IV Levaquin for legionnaires disease. He had a chest CT today, which showed bilateral pleural effusions up to 4.7 cm on the right and 2.3 on the left. Bilateral airspace infiltrate is quite large on the left, smaller and multifocal on the right. Air bronchograms, left renal calculus, NG tube. Possibly he has been treated for legionnaires disease with IV Levaquin. He has progressive airspace infiltrates, perfusions. Consider ARDS and/or pneumonia. try to wean off the vent if possible. The patient's prognosis is severely guarded in the ICU. ICU notes were reviewed. Remains on the vent, sedated, paralyzed, intubated. He failed weaning yesterday. . He has IV fluids at 50 mL an hour. BUN 70, creatinine 0.65. Sodium is 140, hemoglobin 11.8. Nutrition support through enteral feeding has been done. Still running a low-grade fever. CAT scan shows pleural effusion. OBJECTIVE: GENERAL: Resting comfortably on the vent. LUNGS: Scattered rhonchi and wheeze. CARDIOVASCULAR: S1, S2. He is sleeping comfortably. HEMATOLOGY: Negative Homans. ABDOMEN: Nondistended. VITAL SIGNS: Blood pressure 118/66, respiratory rate 20 to 26, temp 99, FiO2 of 70. Hemoglobin is 11.8. ASSESSMENT: Acute legionnaires disease, secondary hypoxia, respiratory failure, altered mental status, on mechanical ventilator. Neuro workup was negative with negative lumbar puncture. CT of the brain is negative. MRI of the brain was negative. CT scan from today with pleural effusions, possibly tap will be done since bilateral pneumonia consolidation, legionnaires positive. Hyponatremia, microcytosis, alcoholism, positive fluid balance, pleural effusions. We are going to start Lasix today 40 mg IV every 12 hours. Sedation. Wean off ventilator as tolerated. CT scan of the chest shows pleural effusion. Possible pleural tap will be done. Maintain antibiotics per Dr. Quiñones's recommendations. Prognosis extremely guarded. Continue enteral feedings. Wean FiO2 and PEEP as tolerated. MMODL / IJN: [id number] /
[2022-07-23 11:31] LABS: Glucose,Whole Blood 97 mg/dL (70-110)
[2022-07-23] MEDS ORDERED: POTASSIUM BICARBONATE/CIT AC 20 MEQ TABLET.EFF NG-TUBE SCH ×2 (13:00→20:00)
[2022-07-23] MEDS: ACETAMINOPHEN TAB 325 MG TAB PO PRN ×2 (13:43→23:03)
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
[2022-07-23 17:57] LABS: Glucose,Whole Blood 99 mg/dL (70-110)
[2022-07-23 23:11] LABS: Glucose,Whole Blood 118 mg/dL (70-110)
[2022-07-24] MEDS: ACETAMINOPHEN TAB 325 MG TAB PO PRN (03:17)
[2022-07-24] MEDS: fentaNYL (PF). 1,000 MCG in SODIUM CHLORIDE 0.9% 80 ML IV SCH ×2 (03:18→10:30)
[2022-07-24] MEDS: IPRATROPIUM-ALBUTEROL 3 ML NEB INHALATION SCH ×6 (03:21→20:16)
[2022-07-24] MEDS: CISATRACURIUM 200 MG in SODIUM CHLORIDE 0.9% 180 ML IV SCH (04:29)
[2022-07-24 04:44] LABS: HCT 31.2 % (39.0-53.0); HGB 10.3 gm/dL (13.0-17.5); MCH 30.8 pg (25.0-35.0); MCV 93.4 fL (80.0-100.0); Platelet Count 428 k/uL (150-450); RBC 3.34 m/uL (4.30-5.90); RDW 13.4 % (11.5-15.5); WBC 14.2 k/uL (3.8-10.6)
[2022-07-24 05:00] LABS: ALT 218 U/L (4-49); AST 224 U/L (17-59); African American GFR (CKD) >90 (>60 ml/min/1.73 sqM); Albumin 2.2 g/dL (3.5-5.0); Alkaline Phosphatase 105 U/L (38-126); Anion Gap 4 mmol/L; Blood Urea Nitrogen 28 mg/dL (9-20); Carbon Dioxide 35 mmol/L (22-30); Chloride 100 mmol/L (98-107); Glucose 111 mg/dL (74-99); Magnesium 2.2 mg/dL (1.6-2.3); Non-African American GFR(CKD) >90 (>60 ml/min/1.73 sqM); Potassium 3.6 mmol/L (3.5-5.1); Sodium 139 mmol/L (137-145); Total Bilirubin 1.1 mg/dL (0.2-1.3); Total Protein 4.7 g/dL (6.3-8.2)
--- NOTE | 2022-07-24 05:26 | PN ---
PROGRESS NOTE SUBJECTIVE: A 52-year-old white male remains on Levaquin for Legionnaires disease, he has low-grade fevers when given Tylenol and Motrin every 6 hours. He is alert on the vent, possibly extubated. OBJECTIVE: VITAL SIGNS: T-max 101, pulse 80s to 90s, respiratory rate 20 to 26, blood pressure 101/59, O2 92%, and FiO2 60. LUNGS: Scattered rhonchi wheeze. CARDIOVASCULAR: S1, S2. HEMATOLOGY: Negative for Homans. PSYCH: Fair mood and affect. LABORATORY DATA: White count is 9.2, hemoglobin is 11.2. PLAN: Continue current treatments for Legionnaires disease. For acute hypoxemic respiratory failure, wean off the vent as tolerated. Altered mental status secondary to Legionnaires disease. Prognosis is guarded. Continue with Zosyn and Levaquin. MMODL / IJN: [id number] /
[2022-07-24] MEDS: INSULIN ASPART (NovoLOG) 100 UNIT/ML VIAL SQ SCH ×4 (05:35→23:01)
[2022-07-24] MEDS ORDERED: POTASSIUM BICARBONATE/CIT AC 20 MEQ TABLET.EFF NG-TUBE SCH (06:00)
[2022-07-24 06:03] LABS: ABG Base Excess 13.6 mmol/L; ABG HCO3 37 mmol/L (21-25); ABG Oxygen Saturation 97.9 % (94-97); ABG PCO2 46 mmHg (35-45); ABG PH 7.51 (7.35-7.45); ABG PO2 90 mmHg (83-108); ABG TCO2 38 mmol/L (19-24); Allen Test Performed? Yes
--- NOTE | 2022-07-24 07:05 | P.PN ---
Subjective Progress Note Date: 07/23/22 07/23/2022: Patient was seen for a follow-up. Patient is intubated, although sedated with propofol 50 mcg/kg/m and fentanyl 1 g per program per hour, but he is still quite awake, appropriate, nodding appropriately. He denies headache. 07/22/2022: Patient was seen for a follow-up. Patient initially seen by Dr. Thierno Case. Please refer to his note for details. Patient is a 52-year-old male who was initially consulted for expressive aphasia. Daksha Case felt it was more respiratory issues causing speech difficulty. All neurological workup has been negative. CSF was normal. Patient probably has septic encephalopathy. He is intubated on ventilator. Patient is currently intubated, sedated. He is on fentanyl 1 mcg/kg/h, also on propofol 50 mcg/kg/m. despite sedation, he is responding as per examination. He denies headache. Some of the workup during his hospital visit consisted of: White blood cell is 15.2 thousand and predominantly neutrophilic ESR is 58 and CRP of 37.8. Ammonia level is less than 9. Drug seeing is not detected Sodium is 126, potassium 3.0, BUN 31 and a creatinine is 1.52, initial serum glucose is 136, calcium 7.6 AST of 123 and ALT of 61. Urine drug screen is negative Uringe Legionella Ag: Positive. CT of the head is reported as negative unenhanced head CT scan CT angiography of the head and neck was reported as negative. Left-sided extensive air space pneumonia. CT of chest is reported as extensive air space pulmonary infiltrates was are more on the left side. This could relate to the RDS. CSF study is clear, colorless, red blood cells 1, total nucleated cells 2, glucose is 69 and the protein is 79 (normal is 12-60). CSF Gram stain is no organisms seen. CSF VDRL nonreactive. CSF no viruses detected. CSF Oligoclonal bands: Negative Influenza A/B/RSV PCR/SARS Covid to PCR was not detected. HIV 1 and 2 antibody is not reactive Treponema Pallidum Ab: Nonreactive. MRI the brain with and without his reported as no evidence of intracranial mass, acute/subacute infarct or abnormal enhancement. Nonspecific white matter changes with a more asymmetrical left parietal region area. I personally r eviewed the MRI and I do feel like the patient has some white matter lesion nonspecific otherwise there is no acute or subacute ischemia there is no enhancement there is no mass. Routine EEG is somewhat limited because of artifact. Otherwise the background is normal and there is no focal slowing, epileptiform discharges or seizure on the EEG. Objective - Vital Signs Vital signs: Vital Signs Temp 100.2 F H 07/23/22 15:00 Pulse 103 H 07/23/22 16:03 Resp 26 H 07/23/22 16:00 BP 105/64 07/23/22 16:00 Pulse Ox 94 L 07/23/22 16:00 FiO2 60 07/23/22 16:00 Intake & Output 07/22/22 07/23/22 07/23/22 18:59 06:59 18:59 Intake Total 956.621 969.986 0534.060 Output Total 1395 1860 1865 Balance -438.379 -941.498 -750.940 Weight 99.9 kg 96.6 kg Intake: IV 522 237 410 0.9 KVO 45 A-line pressure bag 36 36 30 CVP line 36 36 30 Levofloxacin 750Mg-D5w 150 100 Pmx 750 mg In Dextrose/ Water 1 150ml.bag @ 100 mls/hr IVPB Q24H [facility] Rx#: [id number] Piperacillin-Tazobactam 3 100 100 200 .375 gm In Sodium Chloride 0.9% 100 ml @ 25 mls/hr IVPB Q8HR [facility] Rx# :[id number] Sodium Chloride 0.9% 1, 200 65 5 000 ml @ 50 mls/hr IV . Q20H [facility] Rx#:[id number] Intake, IV Titration 370.621 404.502 354.060 Amount Cisatracurium 200 mg In 109.404 Sodium Chloride 0.9% 180 ml @ 2 MCG/KG/MIN 10.596 mls/hr IV .[id number] [facility] Rx #:[id number] fentaNYL (PF). 1,000 mcg 5.544 77.616 85.848 In Sodium Chloride 0.9% 80 ml @ 0.5 MCG/KG/HR 5. 04 mls/hr IV .[id number] [facility] Rx#:[id number] propofoL 1,000 mg In 255.673 326.886 268.212 Empty Bag 1 bag @ 15 MCG/ KG/MIN 7.947 mls/hr IV . [id number] [facility] Rx#:[id number] Tube Feeding 34 187 230 Other 30 90 120 Output: Urine 1395 1860 1865 Other: Voiding Method Indwelling Catheter Indwelling Catheter Indwelling Catheter ABP, PAP, CO, CI - Last Documented Arterial Blood Pressure 100/44 - Exam GENERAL: The patient is lying in bed and does not appear in acute distress. LUNG: Intubated on ventilator. NEUROLOGICAL: Patient has eyes closed, but woke up on calling his name easily. He is still on IV Propofol 50mcg/kg/min., and fentanyl. Higher mental function: The patient wakes up, and follows commands very well. Cranial nerves: Pupils are equal, round and reacting, visual velez are full on confrontation. Patient is intubated. Patient's comprehension is perfectly intact. Face appears symmetric although difficult to assess because of intubation. Motor: Strength is 4+ in the chief crew scheduler, 5 at the biceps and triceps, ankles are 5 bilaterally. Hip flexion 4+5-bilaterally. Cerebellum: No ataxia in the upper limbs. Sensation: Sensations equal to touch. Reflexes (right/left): Very hyperactive to almost absent. Plantars are downgoing bilaterally. - Labs CBC & Chem 7: 07/24/22 04:30 07/24/22 04:30 Labs: Abnormal Lab Results - Last 24 Hours (Table) 07/23/22 07/23/22 07/23/22 Range/Units 03:40 03:40 05:43 RBC 3.60 L (4.30-5.90) m/uL Hgb 11.2 L (13.0-17.5) gm/dL Hct 33.7 L (39.0-53.0) % ABG pH 7.46 H (7.35-7.45) ABG pCO2 51 H (35-45) mmHg ABG HCO3 36 H (21-25) mmol/L ABG Total CO2 38 H (19-24) mmol/L ABG O2 Saturation 97.1 H (94-97) % Carbon Dioxide 36 H (22-30) mmol/L BUN 24 H (9-20) mg/dL Glucose 102 H (74-99) mg/dL Calcium 7.3 L (8.4-10.2) mg/dL Microbiology - Last 24 Hours (Table) 07/19/22 12:10 Blood Culture - Preliminary Blood No Growth after 96 hours Assessment and Plan Assessment: Altered mental status, likely due to toxic metabolic encephalopathy, now almost resolved. No evidence of acute CVA on MRI. Current examination nonfocal. Patient still on sedation, but very alert and appropriate. Bilateral pneumonia due to Legionella, left greater than the right Hypoxic respiratory distress/respiratory failure, on mechanical ventilation. Cephalgia due to above which has resolved Hyponatremia Hypokalemia--resolved Acute kidney insufficiency AST slightly elevated and ALT--resolved Plan: Patient currently on Zosyn and Levaquin. Continue neuro checks every shift. Patient's neurological examination is completely intact. He is mildly enceph alopathic because of being on propofol. We'll defer the rest of the medical management to the primary, ID and the ICU team Neurology will follow.
[2022-07-24] MEDS: PIPERACILLIN-TAZOBACTAM 3.375 GM in SODIUM CHLORIDE 0.9% 100 ML IVPB SCH (07:59)
[2022-07-24] MEDS: LEVOFLOXACIN 750MG-D5W PMX 750 MG in DEXTROSE/WATER 1 150ML.BAG IVPB SCH (07:59)
[2022-07-24] MEDS: FUROSEMIDE 10 MG/ML 4 ML VIAL IV SCH ×2 (08:00→21:50)
[2022-07-24] MEDS: ENOXAPARIN 40 MG/0.4 ML SYRINGE SQ SCH (08:00)
[2022-07-24] MEDS: FAMOTIDINE 20 MG TAB PO SCH (08:00)
[2022-07-24] MEDS: CHLORHEXIDINE GLUCONATE 15 ML CUP MUCOUS MEM SCH (08:00)
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
--- NOTE | 2022-07-24 09:47 | XR ---
EXAMINATION TYPE: XR chest 1V portable DATE OF EXAM: 07/24/2022 COMPARISON: 07/23/2022, 07/22/[address] 07/22/2022 HISTORY: ET tube, pneumonia TECHNIQUE: Single frontal view of the chest is obtained. FINDINGS: Endotracheal tube is well-positioned. Orogastric tube is also well position projecting ove r the stomach. A left internal jugular central venous catheter tip terminates at the high right atriu m. The heart is not enlarged. Bilateral patchy airspace opacities/consolidative changes remain and ar e perhaps minimally improved from previous day. There is less obscuration of the right hemidiaphragm. No pneumothorax. IMPRESSION: Mild improvement from previous day in bilateral consolidation and pleural effusions.
--- NOTE | 2022-07-24 09:50 | CDI ---
Documentation Clarification Form Date: 07/18/2022 3:35:00 PM From: Deanne Osborn RN, CCDS Admit Date: 07/15/2022 9:41:00 PM Patient Name: Moriah Arndt Visit Number: [id number] Discharge Date: ATTENTION: The Clinical Documentation Specialists (CDI) and [facility] Coding Staff appreciate your assistance in clarifying documentation. Please respond to the clarification below the line at the bottom and electronically sign. The CDI & [facility] Coding staff will review the response and follow-up if needed. Please note: Queries are made part of the Legal Health Record. If you have any questions, please contact the author of this message via ITS. Dr. Kristopher Wyatt The patient presented with mental status changes, fever and elevated white count. Additional clarification regarding the etiology/cause of the clinical indicators is requested. History/Risk Factors: COVID-19 07/16 ID Consult: Patient in the hospital mental status changes in this patient who did have evidence of fever and elevated count. 07/16 Neurology consult: Encephalopathy due to sepsis and appears underlying pneumonia. Also, patient has underlying metabolic encephalopathy. Clinical Indicators: 52-year-old female with altered mental status. A/OX2. He was having expressive aphasia. 07/15 Labs: WBC: 15.2, Sodium 126, bun 31, Cr 1.52 GFR 53 07/15 Blood cultures: No growth after 48 hours 07/15@ 17: 45 Vital signs: 119/74 110 18 103.1 91 % RA 07/15 @ 18:00 VS: 139/75 105 103.2 92 % RA 07/15 CXR: Extensive pulmonary infiltrates that could be developing RDS. Congestive heart failure also possible. Treatment: ICU/Telemetry monitoring Rocephin 2 GM IVPB Q 24 HRS 07/16-07/17, Cefepime 2 GM IVPB Q 12 08/15-07/16 Vancomycin 2,000 MG IVPB07/15 (PTD) then 1,500MG IVPB Q 16 HRS 07/16-07/17 Acyclovir 800 MG IVPB Q 8 HRS 07/16-07/17 .9NS 1,000 IV 07/15 then @ 130MLS/HR 07/16-07/17 In your professional opinion, please clarify if these findings signify one of the following conditions: [ ] Sepsis, due to pneumonia POA [ ] Sepsis ruled out [ ] Severe Sepsis with organ failure, due to pneumonia, POA [ ] Other, please specify [ ] Unable to determine SIRS Criteria: 2 or more of the following may indicate SIRS -Temperature < 96.8F (36C) or > 101.0F (38.3C) -Heart Rate > 90 bpm -Respiratory Rate > 20 breaths/min or PaCO2 < 32 mmHg -White Blood Cell Count > 12,000 or < 4,000 cells/mm3 or > 10% bands (Template Last Reviewed: July 2020) MTDD
[2022-07-24 11:59] LABS: Glucose,Whole Blood 106 mg/dL (70-110)
[2022-07-24 12:00] LABS: ABG Base Excess 11.1 mmol/L; ABG HCO3 34 mmol/L (21-25); ABG Oxygen Saturation 96.9 % (94-97); ABG PCO2 42 mmHg (35-45); ABG PH 7.51 (7.35-7.45); ABG PO2 82 mmHg (83-108); ABG TCO2 35 mmol/L (19-24)
[2022-07-24 12:02] LABS: Allen Test Performed? no
[2022-07-24] MEDS ORDERED: VANCOMYCIN IV PER PHARMACY 1 EACH MISC MISCELLANE PRN (12:42)
--- NOTE | 2022-07-24 12:58 | P.PN ---
Subjective Progress Note Date: 07/24/22 Principal diagnosis: Fever and pneumonia Patient is a 52-year-old male who was brought into the ER via EMS and police after apparently the patient was noticed to be altered mentally when he was stopped by the chief operating officer patient apparently was followed by the chief operating officer on the expressway as the patient was receiving and not pulling immediately but no accident has happened, patient wasn't to be slightly confused and oxygen with a question of possible pneumonia patient also have a CSF examination which came back to be negative. On today's evaluation that is 07/24/2022 the patient has been running fever since yesterday afternoon I was not notified, the patient is hemodynamically stable not requiring pressor support , the patient remains to be intubated on the vent and FiO2 is down to 50 %, no significant purulent secretion through the ET, patient is awake on the vent and currently undergoing weaning parameter per the nursing staff Objective - Vital Signs Vital signs: Vital Signs Temp 100.0 F H 07/24/22 08:00 Pulse 102 H 07/24/22 11:00 Resp 26 H 07/24/22 11:00 BP 101/58 07/23/22 17:00 Pulse Ox 96 07/24/22 11:00 FiO2 50 07/24/22 11:06 Intake & Output 07/23/22 07/24/22 07/24/22 18:59 06:59 18:59 Intake Total 2632.708 2535.933 569.147 Output Total 2064 1994 950 Balance -779.180 -817.067 -380.853 Weight 93.3 kg Intake: IV 432 303 288 0.9 KVO 55 125 20 A-line pressure bag 36 39 9 CVP line 36 39 9 Levofloxacin 750Mg-D5w 100 150 Pmx 750 mg In Dextrose/ Water 1 150ml.bag @ 100 mls/hr IVPB Q24H [facility] Rx#: [id number] Piperacillin-Tazobactam 3 200 100 100 .375 gm In Sodium Chloride 0.9% 100 ml @ 25 mls/hr IVPB Q8HR [facility] Rx# :[id number] Sodium Chloride 0.9% 1, 5 000 ml @ 50 mls/hr IV . Q20H [facility] Rx#:[id number] Intake, IV Titration 449.820 433.933 170.147 Amount fentaNYL (PF). 1,000 mcg 181.608 83.160 72.576 In Sodium Chloride 0.9% 80 ml @ 0.5 MCG/KG/HR 5. 04 mls/hr IV .[id number] [facility] Rx#:[id number] propofoL 1,000 mg In 268.212 350.773 97.571 Empty Bag 1 bag @ 15 MCG/ KG/MIN 7.947 mls/hr IV . [id number] [facility] Rx#:[id number] Tube Feeding 284 351 81 Other 120 90 30 Output: Urine 2065 1994 950 Other: Voiding Method Indwelling Catheter Indwelling Catheter Indwelling Catheter ABP, PAP, CO, CI - Last Documented Arterial Blood Pressure 98/42 - Exam GENERAL DESCRIPTION: A middle-aged male intubated on the vent RESPIRATORY SYSTEM: Unlabored breathing , coarse breath sounds bilaterally HEART: S1 S2 regular rate and rhythm , ABDOMEN: Soft , no tenderness EXTREMITIES: No edema feet - Labs CBC & Chem 7: 07/24/22 04:30 07/24/22 04:30 Labs: Abnormal Lab Results - Last 24 Hours (Table) 07/23/22 07/24/22 07/24/22 Range/Units 23:00 04:30 04:30 WBC 14.2 H (3.8-10.6) k/uL RBC 3.34 L (4.30-5.90) m/uL Hgb 10.3 L (13.0-17.5) gm/dL Hct 31.2 L (39.0-53.0) % ABG pH (7.35-7.45) ABG pCO2 (35-45) mmHg ABG HCO3 (21-25) mmol/L ABG Total CO2 (19-24) mmol/L ABG O2 Saturation (94-97) % Carbon Dioxide 35 H (22-30) mmol/L BUN 28 H (9-20) mg/dL Glucose 111 H (74-99) mg/dL POC Glucose (mg/dL) 118 H (70-110) mg/dL Calcium 7.0 L (8.4-10.2) mg/dL AST 224 H (17-59) U/L ALT 218 H (4-49) U/L Total Protein 4.7 L (6.3-8.2) g/dL Albumin 2.2 L (3.5-5.0) g/dL 07/24/22 Range/Units 05:55 WBC (3.8-10.6) k/uL RBC (4.30-5.90) m/uL Hgb (13.0-17.5) gm/dL Hct (39.0-53.0) % ABG pH 7.51 H (7.35-7.45) ABG pCO2 46 H (35-45) mmHg ABG HCO3 37 H (21-25) mmol/L ABG Total CO2 38 H (19-24) mmol/L ABG O2 Saturation 97.9 H (94-97) % Carbon Dioxide (22-30) mmol/L BUN (9-20) mg/dL Glucose (74-99) mg/dL POC Glucose (mg/dL) (70-110) mg/dL Calcium (8.4-10.2) mg/dL AST (17-59) U/L ALT (4-49) U/L Total Protein (6.3-8.2) g/dL Albumin (3.5-5.0) g/dL Microbiology - Last 24 Hours (Table) 07/19/22 12:10 Blood Culture - Preliminary Blood No Growth after 96 hours Assessment and Plan (1) Pneumonia Current Visit: Yes Status: Acute Code(s): J18.9 - PNEUMONIA, UNSPECIFIED ORGANISM SNOMED Code(s): 471189100 Plan: 1patient is in the hospital mental status changes in this patient who did have evidence of fever and elevated white count patient currently denies having any headache to me however he didn't mention it to the neurologist underlying meningitis and encephalitis has been ruled out in this patient also have evidence of extensive pneumonia and will need to cover for the gram-positive as well as gram-negative pathogen 2patient urine for Legionella antigen came back positive, sputum and bronchoscopy cultures are so far negative 3patient did have a new fever we will go ahead and check blood culture CRP Propacet and repeat a sputum cultures we will continue the patient on Levaquin however discontinue Zosyn and start the patient on vancomycin, adjusting antibiotics further on the basis of culture report Time with Patient: Less than 30
[2022-07-24] MEDS ORDERED: VANCOMYCIN 1,500 MG in SODIUM CHLORIDE 0.9% 500 ML 500 ML IVPB ONE (13:00)
[2022-07-24 13:50] LABS: ABG Base Excess 8.8 mmol/L; ABG HCO3 33 mmol/L (21-25); ABG Oxygen Saturation 94.3 % (94-97); ABG PCO2 44 mmHg (35-45); ABG PH 7.47 (7.35-7.45); ABG PO2 70 mmHg (83-108); ABG TCO2 34 mmol/L (19-24)
[2022-07-24 13:52] LABS: Allen Test Performed? no
[2022-07-24 18:31] LABS: Glucose,Whole Blood 103 mg/dL (70-110)
[2022-07-24] MEDS: POTASSIUM CHLORIDE 20 MEQ in WATER FOR INJECTION 1 100ML.BAG IVPB SCH (22:43)
[2022-07-24] MEDS: VANCOMYCIN 1,500 MG in SODIUM CHLORIDE 0.9% 500 ML 500 ML IVPB SCH (22:43)
[2022-07-24] MEDS: IPRATROPIUM-ALBUTEROL 3 ML NEB INHALATION PRN (23:27)
[2022-07-25] MEDS: POTASSIUM CHLORIDE 20 MEQ in WATER FOR INJECTION 1 100ML.BAG IVPB SCH (00:57)
[2022-07-25 05:01] LABS: Glucose,Whole Blood 96 mg/dL (70-110)
[2022-07-25] MEDS: INSULIN ASPART (NovoLOG) 100 UNIT/ML VIAL SQ SCH ×2 (05:12→14:20)
[2022-07-25 05:19] LABS: Basophils # (A) 0.1 k/uL (0-0.2); Basophils % (A) 0 %; Eosinophils # (A) 0.2 k/uL (0-0.7); Eosinophils % (A) 1 %; HCT 34.4 % (39.0-53.0); HGB 11.1 gm/dL (13.0-17.5); Lymphocytes # (A) 1.5 k/uL (1.0-4.8); Lymphocytes % (A) 10 %; MCH 30.5 pg (25.0-35.0); MCHC 32.1 g/dL (31.0-37.0); MCV 94.9 fL (80.0-100.0); Mean Platelet Volume 8.2; Monocytes # (A) 0.4 k/uL (0-1.0); Monocytes % (A) 3 %; Neutrophils # (A) 12.5 k/uL (1.3-7.7); Neutrophils % (A) 84 %; Platelet Count 384 k/uL (150-450); RBC 3.62 m/uL (4.30-5.90); RDW 13.2 % (11.5-15.5); WBC 14.8 k/uL (3.8-10.6)
[2022-07-25 05:42] LABS: ALT 179 U/L (4-49); AST 123 U/L (17-59); African American GFR (CKD) >90 (>60 ml/min/1.73 sqM); Albumin 2.4 g/dL (3.5-5.0); Alkaline Phosphatase 103 U/L (38-126); Anion Gap 7 mmol/L; Blood Urea Nitrogen 24 mg/dL (9-20); Calcium 7.4 mg/dL (8.4-10.2); Carbon Dioxide 20 mmol/L (22-30); Chloride 112 mmol/L (98-107); Glucose 93 mg/dL (74-99); Non-African American GFR(CKD) >90 (>60 ml/min/1.73 sqM); Potassium 3.6 mmol/L (3.5-5.1); Sodium 139 mmol/L (137-145); Total Bilirubin 0.8 mg/dL (0.2-1.3); Total Protein 5.3 g/dL (6.3-8.2)
[2022-07-25 06:00] LABS: C Reactive Protein 20.7 mg/dL (<1.0)
[2022-07-25] MEDS: POTASSIUM CHLORIDE 10 MEQ in WATER FOR INJECTION 1 100ML.BAG IVPB SCH ×3 (06:16→23:49)
[2022-07-25] MEDS: IPRATROPIUM-ALBUTEROL 3 ML NEB INHALATION SCH ×4 (07:53→19:44)
[2022-07-25] MEDS: ENOXAPARIN 40 MG/0.4 ML SYRINGE SQ SCH (09:18)
[2022-07-25] MEDS: FAMOTIDINE 20 MG TAB PO SCH (09:19)
[2022-07-25] MEDS: FUROSEMIDE 10 MG/ML 4 ML VIAL IV SCH ×2 (09:19→20:24)
--- NOTE | 2022-07-25 09:25 | XR ---
EXAMINATION TYPE: XR chest 1V portable DATE OF EXAM: 07/25/2022 COMPARISON: 07/24/2022 HISTORY: Patient intubated TECHNIQUE: Single frontal view of the chest is obtained. FINDINGS: Endotracheal tube has been removed. Left IJ central venous catheter unchanged with tip at the SVC/RA junction. The heart is not enlarged. Stable patchy right basilar airspace opacities and pa tchy left upper lung and left basilar opacities. Overall increased opacification of the left lung. IMPRESSION: Interval extubation, but otherwise no significant interval change in bilateral airspace disease. Incr eased opacification of the left lung likely due to layering pleural fluid.
[2022-07-25] MEDS: LEVOFLOXACIN 750MG-D5W PMX 750 MG in DEXTROSE/WATER 1 150ML.BAG IVPB SCH (09:58)
--- NOTE | 2022-07-25 11:59 | P.PN ---
Subjective Progress Note Date: 07/24/22 07/24/2022: Patient was seen for a follow-up. Patient is extubated. He feels much better. Denies any headache. He is off all sedation. 07/23/2022: Patient was seen for a follow-up. Patient is intubated, although sedated with propofol 50 mcg/kg/m and fentanyl 1 g per program per hour, but he is still quite awake, appropriate, nodding appropriately. He denies headache. 07/22/2022: Patient was seen for a follow-up. Patient initially seen by Dr. Thierno Case. Please refer to his note for details. Patient is a 52-year-old male who was initially consulted for expressive aphasia. Daksha Case felt it was more respiratory issues causing speech difficulty. All neurological workup has been negative. CSF was normal. Melissa ent probably has septic encephalopathy. He is intubated on ventilator. Patient is currently intubated, sedated. He is on fentanyl 1 mcg/kg/h, also on propofol 50 mcg/kg/m. despite sedation, he is responding as per examination. He denies headache. Some of the workup during his hospital visit consisted of: White blood cell is 15.2 thousand and predominantly neutrophilic ESR is 58 and CRP of 37.8. Ammonia level is less than 9. Drug seeing is not detected Sodium is 126, potassium 3.0, BUN 31 and a creatinine is 1.52, initial serum glucose is 136, calcium 7.6 AST of 123 and ALT of 61. Urine drug screen is negative Uringe Legionella Ag: Positive. CT of the head is reported as negative unenhanced head CT scan CT angiography of the head and neck was reported as negative. Left-sided extensive air space pneumonia. CT of chest is reported as extensive air space pulmonary infiltrates was are more on the left side. This could relate to the RDS. CSF study is clear, colorless, red blood cells 1, total nucleated cells 2, glucose is 69 and the protein is 79 (normal is 12-60). CSF Gram stain is no organisms seen. CSF VDRL nonreactive. CSF no viruses detected. CSF Oligoclonal bands: Negative Influenza A/B/RSV PCR/SARS Covid to PCR was not detected. HIV 1 and 2 antibody is not reactive Treponema Pallidum Ab: Nonreactive. MRI the brain with and without his reported as no evidence of intracranial mass, acute/subacute infarct or abnormal enhancement. Nonspecific white matter changes with a more asymmetrical left parietal region area. I personally reviewed the MRI and I do feel like the patient has some white matter lesion nonspecific otherwise there is no acute or subacute ischemia there is no enhancement there is no mass. Routine EEG is somewhat limited because of artifact. Otherwise the background is normal and there is no focal slowing, epileptiform discharges or seizure on the EEG. Objective - Vital Signs Vital signs: Vital Signs Temp 99.5 F 07/24/22 16:00 Pulse 114 H 07/24/22 17:00 Resp 21 07/24/22 17:00 BP 101/58 07/23/22 17:00 Pulse Ox 91 L 07/24/22 17:00 FiO2 60 07/24/22 12:00 Intake & Output 07/23/22 07/24/22 07/24/22 18:59 06:59 18:59 Intake Total 9261.571 2656.933 1245.535 Output Total 2064 1994 3301 Balance -779.180 -817.067 -2055.465 Weight 93.3 kg Intake: IV 432 303 820 0.9 KVO 55 125 40 A-line pressure bag 36 39 15 CVP line 36 39 15 Levofloxacin 750Mg-D5w 100 150 Pmx 750 mg In Dextrose/ Water 1 150ml.bag @ 100 mls/hr IVPB Q24H [facility] Rx#: [id number] Piperacillin-Tazobactam 3 200 100 100 .375 gm In Sodium Chloride 0.9% 100 ml @ 25 mls/hr IVPB Q8HR [facility] Rx# :[id number] Sodium Chloride 0.9% 1, 5 000 ml @ 50 mls/hr IV . Q20H [facility] Rx#:[id number] Vancomycin 1,500 mg In 500 Sodium Chloride 0.9% 500 ml 500 ml @ 167 mls/hr IVPB Q12H [facility] Rx#: [id number] Intake, IV Titration 449.820 433.933 287.535 Amount fentaNYL (PF). 1,000 mcg 181.608 83.160 99.456 In Sodium Chloride 0.9% 80 ml @ 0.5 MCG/KG/HR 5. 04 mls/hr IV .[id number] [facility] Rx#:[id number] propofoL 1,000 mg In 268.212 350.773 188.079 Empty Bag 1 bag @ 15 MCG/ KG/MIN 7.947 mls/hr IV . [id number] [facility] Rx#:[id number] Tube Feeding 284 351 108 Other 120 90 30 Output: Urine 2064 1994 3300 Other: Voiding Method Indwelling Catheter Indwelling Catheter Indwelling Catheter ABP, PAP, CO, CI - Last Documented Arterial Blood Pressure 126/52 - Exam GENERAL: The patient is lying in bed and does not appear in acute distress. LUNG: He is extubated. His voice is slightly hoarse from recent extubation. NEUROLOGICAL: Patient is fully alert and awake. He follows commands very well. Speech is hoarse, but no aphasia. He can name and repeat very well. Cranial nerves: Pupils are equal, round and reacting, visual velez are full on confrontation. Patient's comprehension is perfectly intact. Face is symmetric and tongue protrudes the midline.. Motor: Strength is 5- in the hyperbaric tech, 5 at the biceps and triceps, ankles are 5 bilaterally. Hip flexion 5-bilaterally. Cerebellum: No ataxia in the upper limbs. Sensation: Sensations equal to touch. Reflexes (right/left): Very hypoactive to almost absent. Plantars are downgoing bilaterally. - Labs CBC & Chem 7: 07/25/22 05:00 07/25/22 05:00 Labs: Abnormal Lab Results - Last 24 Hours (Table) 07/23/22 07/24/22 07/24/22 Range/Units 23:00 04:30 04:30 WBC 14.2 H (3.8-10.6) k/uL RBC 3.34 L (4.30-5.90) m/uL Hgb 10.3 L (13.0-17.5) gm/dL Hct 31.2 L (39.0-53.0) % ABG pH (7.35-7.45) ABG pCO2 (35-45) mmHg ABG pO2 (83-108) mmHg ABG HCO3 (21-25) mmol/L ABG Total CO2 (19-24) mmol/L ABG O2 Saturation (94-97) % Carbon Dioxide 35 H (22-30) mmol/L BUN 28 H (9-20) mg/dL Glucose 111 H (74-99) mg/dL POC Glucose (mg/dL) 118 H (70-110) mg/dL Calcium 7.0 L (8.4-10.2) mg/dL AST 224 H (17-59) U/L ALT 218 H (4-49) U/L Total Protein 4.7 L (6.3-8.2) g/dL Albumin 2.2 L (3.5-5.0) g/dL 07/24/22 07/24/22 07/24/22 Range/Units 05:55 11:58 13:48 WBC (3.8-10.6) k/uL RBC (4.30-5.90) m/uL Hgb (13.0-17.5) gm/dL Hct (39.0-53.0) % ABG pH 7.51 H 7.51 H 7.47 H (7.35-7.45) ABG pCO2 46 H (35-45) mmHg ABG pO2 82 L 70 L (83-108) mmHg ABG HCO3 37 H 34 H 33 H (21-25) mmol/L ABG Total CO2 38 H 35 H 34 H (19-24) mmol/L ABG O2 Saturation 97.9 H (94-97) % Carbon Dioxide (22-30) mmol/L BUN (9-20) mg/dL Glucose (74-99) mg/dL POC Glucose (mg/dL) (70-110) mg/dL Calcium (8.4-10.2) mg/dL AST (17-59) U/L ALT (4-49) U/L Total Protein (6.3-8.2) g/dL Albumin (3.5-5.0) g/dL Microbiology - Last 24 Hours (Table) 07/19/22 12:10 Blood Culture - Preliminary Blood No Growth after 120 hours Assessment and Plan Assessment: Altered mental status, likely due to toxic metabolic encephalopathy, now almost resolved. No evidence of acute CVA on MRI. Patient extubated, mentation normal. Bilateral pneumonia due to Legionella, left greater than the right Hypoxic respiratory distress/respiratory failure, on mechanical ventilation. Cephalgia due to above which has resolved Hyponatremia Hypokalemia--resolved Acute kidney insufficiency AST slightly elevated and ALT--resolved Plan: Patient is extubated. Neurologically patient is stable. His examination is completely nonfocal. He has no headache. Patient currently on Zosyn and Levaquin. Patient's neurological examination is completely intact. We'll defer the rest of the medical management to the primary, ID and the ICU team Neurologically clear. We will sign off. Please reconsult if any other questions.
[2022-07-25 12:10] LABS: Glucose,Whole Blood 113 mg/dL (70-110)
--- NOTE | 2022-07-25 13:13 | PN ---
PROGRESS NOTE Sepsis ruled in with organ failure due to pneumonia. MMODL / IJN: [id number] /
[2022-07-25] MEDS: VANCOMYCIN 1,500 MG in SODIUM CHLORIDE 0.9% 500 ML 500 ML IVPB SCH ×2 (13:15→23:39)
--- NOTE | 2022-07-25 13:43 | P.PN ---
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 Is wide awake and following commands and answering questions while being on propofol and is currently on 50 mcg/kg/m and is also fentanyl at 1 mcg/kg/h. He is very comfortable and symptoms the mechanical ventilator. His chest x-ray is essentially unchanged. Nevertheless, his blood gas from today shows a pH of 7.5 1 with a pCO2 of 48 and pO2 of 90. Note that the patient is a case of Legionella pneumonia and he had also developed bilateral pleural effusions right more than left. His peak airway pressure today was around 31 with static airway pressure of 20. Based on that, I dropped his FiO2 down to 50%. I also dropped a PEEP down to 8. He does have some respiratory secretions which are being suctioned out. He seems to be quite comfortable. With those adjustments, his pulse ox is ranging between 92 and 93%. He remains hemodynamically stable. Is being diuresed with IV Lasix. Fluid balance has been -1.6 L over the past 24 hours. His serum bicarb is up to 36 and obviously has become alkalotic. The previous cause of 14.2 with a hemoglobin of 10.3. He is receiving enteral feeding for nutritional support in the form of vital HP at the rate of 27 mL an hour. No other active issues for now. He is hemodynamically stable. He is neurologically intact. No agitation. No fever. There have low-grade fever overnight and this morning he is afebrile. patient was reevaluated today on 07/25/22, patient remains in the ICU, anxiety to his nasal cannula, he was extubated yesterday uneventfully, tolerated the extubation well. Remains on antibiotics for his Legionella pneumonia, his IV fluids at KVO, patient does not seem to be in any distress, however chest x-ray continues to show bilateral air space disease. WBC count is 14.8 hemoglobin is 11.20, electrolytes are normal liver enzymes are borderline elevated. Pro- calcitonin level remains a bit high at 0.43. Objective - Vital Signs Vital signs: Vital Signs Temp 98.5 F 07/25/22 08:00 Pulse 109 H 07/25/22 12:11 Resp 23 07/25/22 12:11 BP 101/58 07/23/22 17:00 Pulse Ox 95 07/25/22 11:00 FiO2 60 07/24/22 12:00 Intake & Output 07/24/22 07/25/22 07/25/22 18:59 06:59 18:59 Intake Total 1267.535 892 132 Output Total 3876 3010 250 Balance -2608.465 -2118 -118 Weight 88.4 kg 88.4 kg Intake: IV 842 692 32 0.9 KVO 50 120 20 A-line pressure bag 21 36 6 CVP line 21 36 6 Levofloxacin 750Mg-D5w 150 Pmx 750 mg In Dextrose/ Water 1 150ml.bag @ 100 mls/hr IVPB Q24H [facility] Rx#: [id number] Piperacillin-Tazobactam 3 100 .375 gm In Sodium Chloride 0.9% 100 ml @ 25 mls/hr IVPB Q8HR [facility] Rx# :[id number] Vancomycin 1,500 mg In 500 500 Sodium Chloride 0.9% 500 ml 500 ml @ 167 mls/hr IVPB Q12H [facility] Rx#: [id number] Intake, IV Titration 287.535 200 100 Amount Potassium Chloride 10 meq 100 In Water For Injection 1 100ml.bag @ 100 mls/hr IVPB Q1H [facility] Rx#: [id number] Potassium Chloride 20 meq 200 In Water For Injection 1 100ml.bag @ 50 mls/hr IVPB Q2H [facility] Rx#: [id number] fentaNYL (PF). 1,000 mcg 99.456 In Sodium Chloride 0.9% 80 ml @ 0.5 MCG/KG/HR 5. 04 mls/hr IV .[id number] [facility] Rx#:[id number] propofoL 1,000 mg In 188.079 Empty Bag 1 bag @ 15 MCG/ KG/MIN 7.947 mls/hr IV . [id number] [facility] Rx#:[id number] Tube Feeding 108 Other 30 Output: Urine 3876 3010 250 Other: Voiding Method Indwelling Catheter Indwelling Catheter Indwelling Catheter # Bowel Movements 1 ABP, PAP, CO, CI - Last Documented Arterial Blood Pressure 88/42 - Exam Physical Exam: Revealed a 52-year-old white male in no distress head: Atraumatic, normocephalic. HEENT:[Neck is supple.] [No neck masses.] [No thyromegaly.] [No JVD.] Chest: [ Crackles at the bases, no rhonchi and no wheezes Cardiac Exam: [Normal S1 and S2, no S3 gallop, no murmur.] Abdomen: [Soft, nontender, no megaly, no rebound, no guarding, normal bowel sounds.] Extremities: [No clubbing, no edema, no cyanosis.] Neurological Exam: [No focal neurologic deficit.] alert oriented 3. Psychiatric: Normal mood affect and normal mental status examination. Skin: No rashes - Labs CBC & Chem 7: 07/25/22 05:00 07/25/22 11:40 Labs: Abnormal Lab Results - Last 24 Hours (Table) 07/24/22 07/24/22 07/25/22 Range/Units 13:48 21:55 05:00 WBC (3.8-10.6) k/uL RBC (4.30-5.90) m/uL Hgb (13.0-17.5) gm/dL Hct (39.0-53.0) % Neutrophils # (1.3-7.7) k/uL ABG pH 7.47 H (7.35-7.45) ABG pO2 70 L (83-108) mmHg ABG HCO3 33 H (21-25) mmol/L ABG Total CO2 34 H (19-24) mmol/L Potassium 3.1 L (3.5-5.1) mmol/L Chloride (98-107) mmol/L Carbon Dioxide (22-30) mmol/L BUN (9-20) mg/dL POC Glucose (mg/dL) (70-110) mg/dL Calcium (8.4-10.2) mg/dL AST (17-59) U/L ALT (4-49) U/L C-Reactive Protein (<1.0) mg/dL Total Protein (6.3-8.2) g/dL Albumin (3.5-5.0) g/dL Procalcitonin 0.43 H (0.02-0.09) ng/mL 07/25/22 07/25/22 07/25/22 Range/Units 05:00 05:00 11:40 WBC 14.8 H (3.8-10.6) k/uL RBC 3.62 L (4.30-5.90) m/uL Hgb 11.1 L (13.0-17.5) gm/dL Hct 34.4 L (39.0-53.0) % Neutrophils # 12.5 H (1.3-7.7) k/uL ABG pH (7.35-7.45) ABG pO2 (83-108) mmHg ABG HCO3 (21-25) mmol/L ABG Total CO2 (19-24) mmol/L Potassium 3.4 L (3.5-5.1) mmol/L Chloride 112 H (98-107) mmol/L Carbon Dioxide 20 L (22-30) mmol/L BUN 24 H (9-20) mg/dL POC Glucose (mg/dL) (70-110) mg/dL Calcium 7.4 L (8.4-10.2) mg/dL AST 123 H (17-59) U/L ALT 179 H (4-49) U/L C-Reactive Protein 20.7 H (<1.0) mg/dL Total Protein 5.3 L (6.3-8.2) g/dL Albumin 2.4 L (3.5-5.0) g/dL Procalcitonin (0.02-0.09) ng/mL 07/25/22 Range/Units 12:08 WBC (3.8-10.6) k/uL RBC (4.30-5.90) m/uL Hgb (13.0-17.5) gm/dL Hct (39.0-53.0) % Neutrophils # (1.3-7.7) k/uL ABG pH (7.35-7.45) ABG pO2 (83-108) mmHg ABG HCO3 (21-25) mmol/L ABG Total CO2 (19-24) mmol/L Potassium (3.5-5.1) mmol/L Chloride (98-107) mmol/L Carbon Dioxide (22-30) mmol/L BUN (9-20) mg/dL POC Glucose (mg/dL) 113 H (70-110) mg/dL Calcium (8.4-10.2) mg/dL AST (17-59) U/L ALT (4-49) U/L C-Reactive Protein (<1.0) mg/dL Total Protein (6.3-8.2) g/dL Albumin (3.5-5.0) g/dL Procalcitonin (0.02-0.09) ng/mL Microbiology - Last 24 Hours (Table) 07/24/22 20:21 Gram Stain - Preliminary Sputum Sputum Culture - Preliminary 07/19/22 12:10 Blood Culture - Preliminary Blood No Growth after 120 hours Assessment and Plan Assessment: impression: Acute hypoxic respiratory failure secondary to legionnaire's disease/pneumonia extensive bilateral pneumonia, Legionella urine antigen was positive bilateral pleural effusions, resolved history of alcoholism. Recommendation: Continue antibiotics patient is on Levaquin and Zosyn, vancomycin was added by infectious disease, cultures have been negative continue to monitor in the ICU advanced diet as tolerated continue GI and DVT prophylaxis continue to monitor daily labs possible transfer out of the ICU in the next 24 hours Time with Patient: Less than 30
[2022-07-25] MEDS: POTASSIUM BICARBONATE/CIT AC 20 MEQ TABLET.EFF NG-TUBE SCH ×2 (16:15→18:55)
--- NOTE | 2022-07-25 22:12 | P.PN ---
Subjective Progress Note Date: 07/25/22 Principal diagnosis: Fever and pneumonia Patient is a 52-year-old male who was brought into the ER via EMS and police after apparently the patient was noticed to be altered mentally when [place] police patient [place] police on [place] express[place] the patient was receiving and not pulling immediately but no accident has happened, patient wasn't to be slightly confused and oxygen with a question of possible pneumonia patient also have a CSF examination which came back to be negative. On today's evaluation that is 07/25/2022 the patient is afebrile, the patient has been extubated currently breathing comfortably on 8 L nasal cannula, the patient is hemodynamically stable not requiring pressor support , the patient denies having any chest pain or shortness of some cough not bringing up any sputum, nausea no vomiting no abdominal Objective - Vital Signs Vital signs: Vital Signs Temp 98.5 F 07/25/22 08:00 Pulse 100 07/25/22 08:04 Resp 18 07/25/22 08:04 BP 101/58 07/23/22 17:00 Pulse Ox 93 L 07/25/22 08:00 FiO2 60 07/24/22 12:00 Intake & Output 07/24/22 07/25/22 07/25/22 18:59 06:59 18:59 Intake Total 1267.535 892 132 Output Total 3876 3010 250 Balance -2608.465 -2118 -118 Weight 88.4 kg Intake: IV 842 692 32 0.9 KVO 50 120 20 A-line pressure bag 21 36 6 CVP line 21 36 6 Levofloxacin 750Mg-D5w 150 Pmx 750 mg In Dextrose/ Water 1 150ml.bag @ 100 mls/hr IVPB Q24H [facility] Rx#: [id number] Piperacillin-Tazobactam 3 100 .375 gm In Sodium Chloride 0.9% 100 ml @ 25 mls/hr IVPB Q8HR [facility] Rx# :[id number] Vancomycin 1,500 mg In 500 500 Sodium Chloride 0.9% 500 ml 500 ml @ 167 mls/hr IVPB Q12H [facility] Rx#: [id number] Intake, IV Titration 287.535 200 100 Amount Potassium Chloride 10 meq 100 In Water For Injection 1 100ml.bag @ 100 mls/hr IVPB Q1H [facility] Rx#: [id number] Potassium Chloride 20 meq 200 In Water For Injection 1 100ml.bag @ 50 mls/hr IVPB Q2H [facility] Rx#: [id number] fentaNYL (PF). 1,000 mcg 99.456 In Sodium Chloride 0.9% 80 ml @ 0.5 MCG/KG/HR 5. 04 mls/hr IV .[id number] [facility] Rx#:[id number] propofoL 1,000 mg In 188.079 Empty Bag 1 bag @ 15 MCG/ KG/MIN 7.947 mls/hr IV . [id number] [facility] Rx#:[id number] Tube Feeding 108 Other 30 Output: Urine 3876 3010 250 Other: Voiding Method Indwelling Catheter Indwelling Catheter # Bowel Movements 1 ABP, PAP, CO, CI - Last Documented Arterial Blood Pressure 119/51 - Exam GENERAL DESCRIPTION: A middle-aged male intubated on the vent RESPIRATORY SYSTEM: Unlabored breathing , coarse breath sounds bilaterally HEART: S1 S2 regular rate and rhythm , ABDOMEN: Soft , no tenderness EXTREMITIES: No edema feet - Labs CBC & Chem 7: 07/25/22 05:00 07/25/22 20:59 Labs: Abnormal Lab Results - Last 24 Hours (Table) 07/24/22 07/24/22 07/24/22 Range/Units 11:58 13:48 21:55 WBC (3.8-10.6) k/uL RBC (4.30-5.90) m/uL Hgb (13.0-17.5) gm/dL Hct (39.0-53.0) % Neutrophils # (1.3-7.7) k/uL ABG pH 7.51 H 7.47 H (7.35-7.45) ABG pO2 82 L 70 L (83-108) mmHg ABG HCO3 34 H 33 H (21-25) mmol/L ABG Total CO2 35 H 34 H (19-24) mmol/L Potassium 3.1 L (3.5-5.1) mmol/L Chloride (98-107) mmol/L Carbon Dioxide (22-30) mmol/L BUN (9-20) mg/dL Calcium (8.4-10.2) mg/dL AST (17-59) U/L ALT (4-49) U/L C-Reactive Protein (<1.0) mg/dL Total Protein (6.3-8.2) g/dL Albumin (3.5-5.0) g/dL Procalcitonin (0.02-0.09) ng/mL 07/25/22 07/25/22 07/25/22 Range/Units 05:00 05:00 05:00 WBC 14.8 H (3.8-10.6) k/uL RBC 3.62 L (4.30-5.90) m/uL Hgb 11.1 L (13.0-17.5) gm/dL Hct 34.4 L (39.0-53.0) % Neutrophils # 12.5 H (1.3-7.7) k/uL ABG pH (7.35-7.45) ABG pO2 (83-108) mmHg ABG HCO3 (21-25) mmol/L ABG Total CO2 (19-24) mmol/L Potassium (3.5-5.1) mmol/L Chloride 112 H (98-107) mmol/L Carbon Dioxide 20 L (22-30) mmol/L BUN 24 H (9-20) mg/dL Calcium 7.4 L (8.4-10.2) mg/dL AST 123 H (17-59) U/L ALT 179 H (4-49) U/L C-Reactive Protein 20.7 H (<1.0) mg/dL Total Protein 5.3 L (6.3-8.2) g/dL Albumin 2.4 L (3.5-5.0) g/dL Procalcitonin 0.43 H (0.02-0.09) ng/mL Microbiology - Last 24 Hours (Table) 07/24/22 20:21 Gram Stain - Preliminary Sputum Sputum Culture - Preliminary 07/19/22 12:10 Blood Culture - Preliminary Blood No Growth after 120 hours Assessment and Plan (1) Pneumonia Current Visit: Yes Status: Acute Code(s): J18.9 - PNEUMONIA, UNSPECIFIED ORGANISM SNOMED Code(s): 244205133 Plan: 1patient is in the hospital mental status changes in this patient who did have evidence of fever and elevated white count patient currently denies having any headache to me however he didn't mention it to the neurologist underlying meningitis and encephalitis has been ruled out in this patient also have evidence of extensive pneumonia and will need to cover for the gram-positive as well as gram-negative pathogen 2patient urine for Legionella antigen came back positive, sputum and bronchoscopy cultures are so far negative 3patient did have a new fever , repeat cultures are currently pending patient fever responded with addition of vancomycin which will be continued while waiting for the cultures to finalize Family at the bedside questions were answered Time with Patient: Less than 30
[2022-07-26] MEDS: POTASSIUM CHLORIDE 10 MEQ in WATER FOR INJECTION 1 100ML.BAG IVPB SCH ×3 (00:53→08:34)
--- NOTE | 2022-07-26 01:38 | P.PN ---
Subjective Progress Note Date: 07/25/22 07/25/2022: Patient was seen for a follow-up. Patient is doing even better. Patient's family was also present. His getting stronger. Complaining of some numbness in the toes, but not restless of the foot, or the upper extremities. Patient's diet has improved. Patient taking thickened food/fluids. Patient states that he walked with a walker with the therapist and sat in the chair. Toes are hurting. Denies headache. 07/24/2022: Patient was seen for a follow-up. Patient is extubated. He feels much better. Denies any headache. He is off all sedation. 07/23/2022: Patient was seen for a follow-up. Patient is intubated, although sedated with propofol 50 mcg/kg/m and fentanyl 1 g per program per hour, but he is still quite awake, appropriate, nodding appropriately. He denies headache. 07/22/2022: Patient was seen for a follow-up. Patient initially seen by Dr. Thierno Case. Please refer to his note for details. Patient is a 52-year-old male who was initially consulted for expressive aphasia. Daksha Case felt it was more respiratory issues causing speech difficulty. All neurological workup has been negative. CSF was normal. Patient probably has septic encephalopathy. He is intubated on ventilator. Patient is currently intubated, sedated. He is on fentanyl 1 mcg/kg/h, also on propofol 50 mcg/kg/m. despite sedation, he is responding as per examination. He denies headache. Some of the workup during his hospital visit consisted of: White blood cell is 15.2 thousand and predominantly neutrophilic ESR is 58 and CRP of 37.8. Ammonia level is less than 9. Drug seeing is not detected Sodium is 126, potassium 3.0, BUN 31 and a creatinine is 1.52, initial serum glucose is 136, calcium 7.6 AST of 123 and ALT of 61. Urine drug screen is negative Uringe Legionella Ag: Positive. CT of the head is reported as negative unenhanced head CT scan CT angiography of the head and neck was reported as negative. Left-sided extensive air space pneumonia. CT of chest is reported as extensive air space pulmonary infiltrates was are more on the left side. This could relate to the RDS. CSF study is clear, colorless, red blood cells 1, total nucleated cells 2, glucose is 69 and the protein is 79 (normal is 12-60). CSF Gram stain is no organisms seen. CSF VDRL nonreactive. CSF no viruses detected. CSF Oligoclonal bands: Negative Influenza A/B/RSV PCR/SARS Covid to PCR was not detected. HIV 1 and 2 antibody is not reactive Treponema Pallidum Ab: Nonreactive. MRI the brain with and without his reported as no evidence of intracranial mass, acute/subacute infarct or abnormal enhancement. Nonspecific white matter changes with a more asymmetrical left parietal region area. I personally reviewed the MRI and I do feel like the patient has some white matter lesion nonspecific otherwise there is no acute or subacute ischemia there is no enhancement there is no mass. Routine EEG is somewhat limited because of artifact. Otherwise the background is normal and there is no focal slowing, epileptiform discharges or seizure on the EEG. Objective - Vital Signs Vital signs: Vital Signs Temp 98.8 F 07/25/22 12:00 Pulse 104 H 07/25/22 14:00 Resp 20 07/25/22 14:00 BP 101/58 07/23/22 17:00 Pulse Ox 90 L 07/25/22 14:00 FiO2 60 07/24/22 12:00 Intake & Output 07/24/22 07/25/22 07/25/22 18:59 06:59 18:59 Intake Total 1267.535 892 958 Output Total 3876 3010 1750 Balance -2608.465 -2118 -792 Weight 88.4 kg 88.4 kg Intake: IV 842 692 858 0.9 KVO 50 120 60 A-line pressure bag 21 36 24 CVP line 21 36 24 Levofloxacin 750Mg-D5w 150 150 Pmx 750 mg In Dextrose/ Water 1 150ml.bag @ 100 mls/hr IVPB Q24H [facility] Rx#: [id number] Piperacillin-Tazobactam 3 100 .375 gm In Sodium Chloride 0.9% 100 ml @ 25 mls/hr IVPB Q8HR [facility] Rx# :[id number] Potassium Chloride 10 meq 100 In Water For Injection 1 100ml.bag @ 100 mls/hr IVPB Q1H [facility] Rx#: [id number] Vancomycin 1,500 mg In 500 500 500 Sodium Chloride 0.9% 500 ml 500 ml @ 167 mls/hr IVPB Q12H [facility] Rx#: [id number] Intake, IV Titration 287.535 200 100 Amount Potassium Chloride 10 meq 100 In Water For Injection 1 100ml.bag @ 100 mls/hr IVPB Q1H [facility] Rx#: [id number] Potassium Chloride 20 meq 200 In Water For Injection 1 100ml.bag @ 50 mls/hr IVPB Q2H [facility] Rx#: [id number] fentaNYL (PF). 1,000 mcg 99.456 In Sodium Chloride 0.9% 80 ml @ 0.5 MCG/KG/HR 5. 04 mls/hr IV .[id number] [facility] Rx#:[id number] propofoL 1,000 mg In 188.079 Empty Bag 1 bag @ 15 MCG/ KG/MIN 7.947 mls/hr IV . [id number] [facility] Rx#:[id number] Tube Feeding 108 Other 30 Output: Urine 3876 3010 1750 Other: Voiding Method Indwelling Catheter Indwelling Catheter Indwelling Catheter # Bowel Movements 1 ABP, PAP, CO, CI - Last Documented Arterial Blood Pressure 108/52 - Exam GENERAL: The patient is lying in bed and does not appear in acute distress. LUNG: He is extubated. His voice is slightly hoarse from recent extubation. NEUROLOGICAL: Patient is fully alert and awake. He follows commands very well. Speech is hoarse, but no aphasia. He can name and repeat very well. Speech is getting more louder, and clear her. Cranial nerves: Pupils are equal, round and reacting, visual velez are full on confrontation. Patient's comprehension is perfectly intact. Face is symmetric and tongue protrudes the midline.. Motor: Strength is 5- in the dietetic intern, 5 at the biceps and triceps, ankles are 5 bilaterally. Hip flexion 5-bilaterally. Cerebellum: No ataxia in the upper limbs. Sensation: Sensations equal to touch. Cerebellar: No ataxia for [id number] testing. Some dysmetria for fjnp-bl-keai testing. Reflexes (right/left): Very hypoactive to almost absent. Plantars are downgoing bilaterally. - Labs CBC & Chem 7: 07/25/22 05:00 07/25/22 20:59 Labs: Abnormal Lab Results - Last 24 Hours (Table) 07/24/22 07/25/22 07/25/22 Range/Units 21:55 05:00 05:00 WBC 14.8 H (3.8-10.6) k/uL RBC 3.62 L (4.30-5.90) m/uL Hgb 11.1 L (13.0-17.5) gm/dL Hct 34.4 L (39.0-53.0) % Neutrophils # 12.5 H (1.3-7.7) k/uL Potassium 3.1 L (3.5-5.1) mmol/L Chloride (98-107) mmol/L Carbon Dioxide (22-30) mmol/L BUN (9-20) mg/dL POC Glucose (mg/dL) (70-110) mg/dL Calcium (8.4-10.2) mg/dL AST (17-59) U/L ALT (4-49) U/L C-Reactive Protein (<1.0) mg/dL Total Protein (6.3-8.2) g/dL Albumin (3.5-5.0) g/dL Procalcitonin 0.43 H (0.02-0.09) ng/mL 07/25/22 07/25/22 07/25/22 Range/Units 05:00 11:40 12:08 WBC (3.8-10.6) k/uL RBC (4.30-5.90) m/uL Hgb (13.0-17.5) gm/dL Hct (39.0-53.0) % Neutrophils # (1.3-7.7) k/uL Potassium 3.4 L (3.5-5.1) mmol/L Chloride 112 H (98-107) mmol/L Carbon Dioxide 20 L (22-30) mmol/L BUN 24 H (9-20) mg/dL POC Glucose (mg/dL) 113 H (70-110) mg/dL Calcium 7.4 L (8.4-10.2) mg/dL AST 123 H (17-59) U/L ALT 179 H (4-49) U/L C-Reactive Protein 20.7 H (<1.0) mg/dL Total Protein 5.3 L (6.3-8.2) g/dL Albumin 2.4 L (3.5-5.0) g/dL Procalcitonin (0.02-0.09) ng/mL Microbiology - Last 24 Hours (Table) 07/24/22 12:52 Blood Culture - Preliminary Blood No Growth after 24 hours 07/19/22 12:10 Blood Culture - Final Blood No Growth after 144 hours 07/24/22 20:21 Gram Stain - Preliminary Sputum Sputum Culture - Preliminary Assessment and Plan Assessment: Altered mental status, likely due to toxic metabolic encephalopathy, now almost resolved. No evidence of acute CVA on MRI. Patient extubated, mentation normal. Bilateral pneumonia due to Legionella, left greater than the right Hypoxic respiratory distress/respiratory failure, status post extubation. Cephalgia due to above which has resolved Hyponatremia Hypokalemia--resolved Acute kidney insufficiency AST slightly elevated and ALT--resolved Paresthesias of the toes, possible mild peripheral neuropathy. Plan: Patient is extubated. Neurologically patient is stable. His examination is completely nonfocal. He has no headache. Patient currently on vancomycin and Levaquin. Patient's neurological examination is completely intact. Regarding paresthesias of the toes, checked B12 1227, folate 9.0, both normal. TSH 0.37, slightly low and free T4 1.95. Recommend watchful observation, hopefully will resolve. We'll defer the rest of the medical management to the primary, ID and the ICU team Neurologically clear. We will sign off. Please reconsult if any other questions.
[2022-07-26 05:25] LABS: Basophils # (A) 0.1 k/uL (0-0.2); Basophils % (A) 0 %; Eosinophils # (A) 0.2 k/uL (0-0.7); Eosinophils % (A) 2 %; HCT 34.5 % (39.0-53.0); HGB 11.2 gm/dL (13.0-17.5); Lymphocytes # (A) 1.8 k/uL (1.0-4.8); Lymphocytes % (A) 13 %; MCH 30.4 pg (25.0-35.0); MCHC 32.4 g/dL (31.0-37.0); MCV 93.6 fL (80.0-100.0); Mean Platelet Volume 8.4; Monocytes # (A) 0.3 k/uL (0-1.0); Monocytes % (A) 3 %; Neutrophils # (A) 11.1 k/uL (1.3-7.7); Neutrophils % (A) 81 %; Platelet Count 413 k/uL (150-450); RBC 3.69 m/uL (4.30-5.90); RDW 13.3 % (11.5-15.5); WBC 13.7 k/uL (3.8-10.6)
[2022-07-26 05:49] LABS: African American GFR (CKD) >90 (>60 ml/min/1.73 sqM); Anion Gap 4 mmol/L; Blood Urea Nitrogen 27 mg/dL (9-20); Calcium 7.6 mg/dL (8.4-10.2); Carbon Dioxide 20 mmol/L (22-30); Chloride 113 mmol/L (98-107); Glucose 98 mg/dL (74-99); Non-African American GFR(CKD) >90 (>60 ml/min/1.73 sqM); Potassium 3.7 mmol/L (3.5-5.1); Sodium 137 mmol/L (137-145)
--- NOTE | 2022-07-26 06:35 | HP ---
HISTORY AND PHYSICAL HISTORY OF PRESENT ILLNESS: This 52-year-old white male came to the hospital [place], swirling and was found to have severe pneumonia in the left lower lobe right lobe with altered mental status. He came to ICU due to near respiratory arrest for which he will need to be intubated. MEDICATIONS AT HOME: Negative. He was found to have severe pneumonia, medications at home nothing. Medication history negative. PAST MEDICAL HISTORY: Negative. FAMILY HISTORY: Negative. PHYSICAL EXAMINATION: VITAL SIGNS: Reviewed. CARDIOVASCULAR: S1, S2. LUNGS: Decreased breath sounds times bilaterally, greatest in the left lobe of the lung and right lower lung. HEMATOLOGY. Negative Homans. PSYCH: Fair mood and affect. NEUROLOGIC: Alert and oriented x3. SKIN: Warm, dry, intact. GI: Soft. VITAL SIGNS: Blood pressure is 130/70, O2 92-94, pulse is 100-120. ASSESSMENT AND PLAN: Acute hypoxemic respiratory failure secondary to severe pneumonia, rule out ARDS, broad- spectrum antibiotics, oxygen, steroids, possible intubation may be needed. Continue to send to ICU, Dr. Wynn consult as well as Infectious Disease. MMODL / IJN: [id number] /
--- NOTE | 2022-07-26 07:10 | PN ---
PROGRESS NOTE SUBJECTIVE: A 52-year-old white male. He has been weaned off the ventilator. He is on vancomycin for secondary infection on top of Levaquin for legionnaires disease. The patient feels much better. OBJECTIVE: VITAL SIGNS: Temperature 97.9, respiratory rate 20 to 25, blood pressure 110/45, pulse is 90s. He is 93% on 7 L. CARDIOVASCULAR: S1 and S2. LUNGS: Scattered rhonchi. HEMATOLOGY: Negative Homans. PSYCHIATRIC: Fair mood and affect. ASSESSMENT: Legionnaire disease, acute hypoxemic respiratory failure. Wean off the ventilator. On vancomycin for secondary infection. Continue Levaquin for Legionnaire disease. Home medicines reviewed. ICU notes reviewed. Continue current treatment. Prognosis guarded. MMODL / IJN: [id number] /
--- NOTE | 2022-07-26 07:13 | PN ---
PROGRESS NOTE DATE OF SERVICE: 07/24/2022 SUBJECTIVE: The patient remains in ICU on the respiratory vent. Neurology seen him. Infectious Disease, keyboard specialist, tile grinder seen him. He is right on the vent. He has been spiking fever since yesterday afternoon. He is stable. He is not requiring vasopressor support. He has been running fevers for days. No severe purulent drainage through the ET. Weaning vent as tolerated. T-max 100 degrees Fahrenheit, pulse 102, respiratory rate 18 to 26, blood pressure 101/58, pulse ox 96, FiO2 50. MEDICATIONS: Reviewed. OBJECTIVE: GENERAL: He is resting comfortably on the vent. LUNGS: Unlabored breathing. He follows commands on the vent. HEART: S1, S2. ABDOMEN: Soft. EXTREMITIES: No edema. LABORATORY DATA: White count 14.2, hemoglobin is 10.3. BUN is 28, creatinine 0.93. ASSESSMENT AND PLAN: He has Legionnaires disease. He has hypercapnic respiratory failure. Bronchoscopy cultures are so far negative. He had a new fever. We are going to recheck blood cultures, CRP, and procalcitonin, sputum culture. Remain on Levaquin and we will start vancomycin. Stop Zosyn. Continue Levaquin. Prognosis is guarded, in ICU. MMODL / IJN: [id number] /
[2022-07-26] MEDS: IPRATROPIUM-ALBUTEROL 3 ML NEB INHALATION SCH ×4 (08:03→20:21)
[2022-07-26] MEDS: LEVOFLOXACIN 750MG-D5W PMX 750 MG in DEXTROSE/WATER 1 150ML.BAG IVPB SCH (08:33)
[2022-07-26] MEDS: ENOXAPARIN 40 MG/0.4 ML SYRINGE SQ SCH (08:34)
[2022-07-26] MEDS: FAMOTIDINE 20 MG TAB PO SCH (08:34)
[2022-07-26] MEDS: FUROSEMIDE 10 MG/ML 4 ML VIAL IV SCH ×2 (08:34→20:28)
--- NOTE | 2022-07-26 11:18 | P.PN ---
Subjective Progress Note Date: 07/26/22 Principal diagnosis: acute hypoxic respiratory failure secondary to legionnaire's disease 07/24/2022, the patient remains intubated on a mechanical ventilator. Is wide awake and following commands and answering questions while being on propofol and is currently on 50 mcg/kg/m and is also fentanyl at 1 mcg/kg/h. He is very comfortable and symptoms the mechanical ventilator. His chest x-ray is essentially unchanged. Nevertheless, his blood gas from today shows a pH of 7.5 1 with a pCO2 of 48 and pO2 of 90. Note that the patient is a case of Legionella pneumonia and he had also developed bilateral pleural effusions right more than left. His peak airway pressure today was around 31 with static airway pressure of 20. Based on that, I dropped his FiO2 down to 50%. I also dropped a PEEP down to 8. He does have some respiratory secretions which are being suctioned out. He seems to be quite comfortable. With those adjustments, his pulse ox is ranging between 92 and 93%. He remains hemodynamically stable. Is being diuresed with IV Lasix. Fluid balance has been -1.6 L over the past 24 hours. His serum bicarb is up to 36 and obviously has become alkalotic. The previous cause of 14.2 with a hemoglobin of 10.3. He is receiving enteral feeding for nutritional support in the form of vital HP at the rate of 27 mL an hour. No other active issues for now. He is hemodynamically stable. He is neurologically intact. No agitation. No fever. There have low-grade fever overnight and this morning he is afebrile. patient was reevaluated today on 07/25/22, patient remains in the ICU, anxiety to his nasal cannula, he was extubated yesterday uneventfully, tolerated the extubation well. Remains on antibiotics for his Legionella pneumonia, his IV fluids at KVO, patient does not seem to be in any distress, however chest x-ray continues to show bilateral air space disease. WBC count is 14.8 hemoglobin is 11.20, electrolytes are normal liver enzymes are borderline elevated. Pro- calcitonin level remains a bit high at 0.43. Reevaluated today on 07/26/2022, patient remains in the ICU, now on 7 L high flow nasal cannula, does not seem to be in any distress, anxiety is being advanced as tolerated. Patient is doing better with incentive spirometry, his IV fluid is at 10 mL per hour. No major hemodynamic issues or arrhythmia overnight, patient will be transferred today out of the ICU to a monitor bed on selective. He did have one episode yesterday of atrial fibrillation lasted about 1 minute, rate was about 150. WBC count today is 13.7 hemoglobin is 11.2. Normal renal profile is normal, blood cultures have been negative so far. Sputum cultures are nondiagnostic. Legionella urine antigen was positive. Objective - Vital Signs Vital signs: Vital Signs Temp 98.2 F 07/26/22 08:00 Pulse 106 H 07/26/22 10:00 Resp 20 07/26/22 10:00 BP 84/53 07/26/22 10:00 Pulse Ox 92 L 07/26/22 10:00 FiO2 60 07/24/22 12:00 Intake & Output 07/25/22 07/26/22 07/26/22 18:59 06:59 18:59 Intake Total 1022 1008 183 Output Total 2240 1245 475 Balance -1218 -237 -292 Weight 88.4 kg 84.4 kg Intake: IV 922 1008 183 0.9 KVO 100 130 15 A-line pressure bag 36 39 9 CVP line 36 39 9 Levofloxacin 750Mg-D5w 150 150 Pmx 750 mg In Dextrose/ Water 1 150ml.bag @ 100 mls/hr IVPB Q24H [facility] Rx#: [id number] Potassium Chloride 10 meq 100 In Water For Injection 1 100ml.bag @ 100 mls/hr IVPB Q1H [facility] Rx#: [id number] Potassium Chloride 10 meq 300 In Water For Injection 1 100ml.bag @ 100 mls/hr IVPB Q1H [facility] Rx#: [id number] Vancomycin 1,500 mg In 500 500 Sodium Chloride 0.9% 500 ml 500 ml @ 167 mls/hr IVPB Q12H [facility] Rx#: [id number] Intake, IV Titration 100 Amount Potassium Chloride 10 meq 100 In Water For Injection 1 100ml.bag @ 100 mls/hr IVPB Q1H [facility] Rx#: [id number] Output: Urine 2240 1245 475 Other: Voiding Method Indwelling Catheter Indwelling Catheter Indwelling Catheter ABP, PAP, CO, CI - Last Documented Arterial Blood Pressure 82/44 - Exam Physical Exam: Revealed a 52-year-old white male in no distress on 7 L high flow nasal cannula head: Atraumatic, normocephalic. HEENT:[Neck is supple.] [No neck masses.] [No thyromegaly.] [No JVD.] Chest: [ Crackles at the bases, no rhonchi and no wheezes Cardiac Exam: [Normal S1 and S2, no S3 gallop, no murmur.] Abdomen: [Soft, nontender, no megaly, no rebound, no guarding, normal bowel sounds.] Extremities: [No clubbing, no edema, no cyanosis.] Neurological Exam: [No focal neurologic deficit.] alert oriented 3. Psychiatric: Normal mood affect and normal mental status examination. Skin: No rashes - Labs CBC & Chem 7: 07/26/22 05:00 07/26/22 05:00 Labs: Abnormal Lab Results - Last 24 Hours (Table) 07/25/22 07/25/22 07/25/22 Range/Units 11:40 11:40 12:08 WBC (3.8-10.6) k/uL RBC (4.30-5.90) m/uL Hgb (13.0-17.5) gm/dL Hct (39.0-53.0) % Neutrophils # (1.3-7.7) k/uL Potassium 3.4 L (3.5-5.1) mmol/L Chloride (98-107) mmol/L Carbon Dioxide (22-30) mmol/L BUN (9-20) mg/dL POC Glucose (mg/dL) 113 H (70-110) mg/dL Calcium (8.4-10.2) mg/dL Vitamin B12 1227.0 H (200.0-944.0) pg/mL 07/26/22 07/26/22 Range/Units 05:00 05:00 WBC 13.7 H (3.8-10.6) k/uL RBC 3.69 L (4.30-5.90) m/uL Hgb 11.2 L (13.0-17.5) gm/dL Hct 34.5 L (39.0-53.0) % Neutrophils # 11.1 H (1.3-7.7) k/uL Potassium (3.5-5.1) mmol/L Chloride 113 H (98-107) mmol/L Carbon Dioxide 20 L (22-30) mmol/L BUN 27 H (9-20) mg/dL POC Glucose (mg/dL) (70-110) mg/dL Calcium 7.6 L (8.4-10.2) mg/dL Vitamin B12 (200.0-944.0) pg/mL Microbiology - Last 24 Hours (Table) 07/24/22 12:52 Blood Culture - Preliminary Blood No Growth after 24 hours 07/19/22 12:10 Blood Culture - Final Blood No Growth after 144 hours 07/24/22 20:21 Gram Stain - Preliminary Sputum Sputum Culture - Preliminary Assessment and Plan Assessment: impression: Acute hypoxic respiratory failure secondary to legionnaire's disease/pneumonia extensive bilateral pneumonia, Legionella urine antigen was positive bilateral pleural effusions, resolved history of alcoholism. Recommendation: Continue antibiotics patient is on Levaquin and vancomycin as ordered by infectious disease on the case. Continue DVT prophylaxis patient is on Lovenox Continue diuretics. Transfer patient to a monitor bed today and continue to follow advance diet as tolerated Continue GI prophylaxis Time with Patient: Less than 30
[2022-07-26 11:22] LABS: African American GFR (CKD) >90 (>60 ml/min/1.73 sqM); Anion Gap 6 mmol/L; Blood Urea Nitrogen 27 mg/dL (9-20); Calcium 7.7 mg/dL (8.4-10.2); Carbon Dioxide 18 mmol/L (22-30); Chloride 114 mmol/L (98-107); Glucose 114 mg/dL (74-99); Non-African American GFR(CKD) >90 (>60 ml/min/1.73 sqM); Potassium 3.7 mmol/L (3.5-5.1); Sodium 138 mmol/L (137-145)
[2022-07-26] MEDS: VANCOMYCIN 1,500 MG in SODIUM CHLORIDE 0.9% 500 ML 500 ML IVPB SCH ×2 (11:29→18:06)
[2022-07-26] MEDS ORDERED: POTASSIUM BICARBONATE/CIT AC 20 MEQ TABLET.EFF NG-TUBE SCH (17:00)
--- NOTE | 2022-07-26 18:44 | P.PN ---
Subjective 52-year-old male who presents to the emergency department, via EMS, on July 15. Initially, thought to be a code stroke, but, the neurologist saw the patient may have some sort of DISABILITY [employer] infection, or encephalopathy secondary to an infection elsewhere. Eventually patient found to have bilateral Legionella pneumonia and vaginal antigen was positive in the urine. Patient is currently kept in the ICU monitored very closely. Distal hypoxic requiring 7 L of oxygen. He had fever 2 days ago at 105. Distal tachypneic with a breathing rate 21-26. Progress calcitonin elevated 0.43 and he has leukocytosis was 13. Currently he is covered with spectrum antibiotic and monitored closely I reviewed the chest by myself showing bilateral infiltrate mainly around the lung bases and more on the right side. Objective - Vital Signs Vital signs: Vital Signs Temp 99.4 F 07/26/22 12:00 Pulse 89 07/26/22 12:00 Resp 20 07/26/22 12:00 BP 100/62 07/26/22 12:00 Pulse Ox 95 07/26/22 12:00 FiO2 55 07/26/22 12:00 Intake & Output 07/25/22 07/26/22 07/26/22 18:59 06:59 18:59 Intake Total 1022 1008 699 Output Total 2240 1245 525 Balance -1218 -237 174 Weight 88.4 kg 84.4 kg Intake: IV 922 1008 699 0.9 KVO 100 130 25 A-line pressure bag 36 39 12 CVP line 36 39 12 Levofloxacin 750Mg-D5w 150 150 Pmx 750 mg In Dextrose/ Water 1 150ml.bag @ 100 mls/hr IVPB Q24H [facility] Rx#: [id number] Potassium Chloride 10 meq 100 In Water For Injection 1 100ml.bag @ 100 mls/hr IVPB Q1H [facility] Rx#: [id number] Potassium Chloride 10 meq 300 In Water For Injection 1 100ml.bag @ 100 mls/hr IVPB Q1H [facility] Rx#: [id number] Vancomycin 1,500 mg In 500 500 500 Sodium Chloride 0.9% 500 ml 500 ml @ 167 mls/hr IVPB Q12H [facility] Rx#: [id number] Intake, IV Titration 100 Amount Potassium Chloride 10 meq 100 In Water For Injection 1 100ml.bag @ 100 mls/hr IVPB Q1H [facility] Rx#: [id number] Output: Urine 2240 1245 525 Other: Voiding Method Indwelling Catheter Indwelling Catheter Indwelling Catheter ABP, PAP, CO, CI - Last Documented Arterial Blood Pressure 106/41 - Exam GENERAL: The patient is alert and oriented x3, not in any acute distress. Well developed, well nourished. HEENT: Pupils are round and equally reacting to light. EOMI. No scleral icterus. No conjunctival pallor. Normocephalic, atraumatic. No pharyngeal erythema. No thyromegaly. CARDIOVASCULAR: S1 and S2 present. No murmurs, rubs, or gallops. PULMONARY: Chest is clear to auscultation, no wheezing , Bilateral crepitation especially in the lung bases ABDOMEN: Soft, nontender, nondistended, normoactive bowel sounds. No palpable organomegaly. MUSCULOSKELETAL: No joint swelling or deformity. EXTREMITIES: No cyanosis, clubbing, or pedal edema. NEUROLOGICAL: Gross neurological examination did not reveal any focal deficits. SKIN: No rashes. no petechiae. - Labs CBC & Chem 7: 07/26/22 05:00 07/26/22 10:25 Labs: Abnormal Lab Results - Last 24 Hours (Table) 07/25/22 07/26/22 07/26/22 Range/Units 11:40 05:00 05:00 WBC 13.7 H (3.8-10.6) k/uL RBC 3.69 L (4.30-5.90) m/uL Hgb 11.2 L (13.0-17.5) gm/dL Hct 34.5 L (39.0-53.0) % Neutrophils # 11.1 H (1.3-7.7) k/uL Chloride 113 H (98-107) mmol/L Carbon Dioxide 20 L (22-30) mmol/L BUN 27 H (9-20) mg/dL Glucose (74-99) mg/dL Calcium 7.6 L (8.4-10.2) mg/dL Vitamin B12 1227.0 H (200.0-944.0) pg/mL 07/26/22 Range/Units 10:25 WBC (3.8-10.6) k/uL RBC (4.30-5.90) m/uL Hgb (13.0-17.5) gm/dL Hct (39.0-53.0) % Neutrophils # (1.3-7.7) k/uL Chloride 114 H (98-107) mmol/L Carbon Dioxide 18 L (22-30) mmol/L BUN 27 H (9-20) mg/dL Glucose 114 H (74-99) mg/dL Calcium 7.7 L (8.4-10.2) mg/dL Vitamin B12 (200.0-944.0) pg/mL Microbiology - Last 24 Hours (Table) 07/24/22 12:52 Blood Culture - Preliminary Blood No Growth after 24 hours 07/19/22 12:10 Blood Culture - Final Blood No Growth after 144 hours 07/24/22 20:21 Gram Stain - Preliminary Sputum Sputum Culture - Preliminary Assessment and Plan Assessment: Acute bilateral pneumonia, legionnaire pneumonia Acute hypoxic respiratory failure Sepsis with fever and leukocytosis 2 small incidental liver cyst requiring evaluation with MRI and computed tomography scan 1 pneumonia resolved. Generalized weakness Plan: Continue with broad-spectrum antibiotic with Levaquin and IV vancomycin Pulmonary and infectious disease consult on the case Neurology service signed off. Patient will recommended to have of the liver as an outpatient for his liver cyst Labs and medication were reviewed.. Continue same treatment. Continue with symptomatic treatment. Resume home medication. Monitor lytes and vitals. DVT and GI prophylaxis. Further recommendations as per clinical course of the cata ent DVT prophylaxis: Subcutaneous Lovenox GI Prophylaxis: Pepcid PT/OT: Pending Prognosis is guarded
[2022-07-26] MEDS ORDERED: CALAMINE/ZINC OXIDE LOTION 177 ML BTL TOPICAL PRN (18:46)
[2022-07-26] MEDS ORDERED: diphenhydrAMINE 25 MG CAP PO PRN (18:47)
--- NOTE | 2022-07-26 20:29 | P.PN ---
Subjective Progress Note Date: 07/26/22 Principal diagnosis: Fever and pneumonia Patient is a 52-year-old male who was brought into the ER via EMS and police after apparently the patient was noticed to be altered mentally when he was stopped by the police lieutenant patrol patient apparently was followed by the police lieutenant patrol on the express[place] as the patient was receiving and not pulling immediately but no accident has happened, patient wasn't to be slightly confused and oxygen with a question of possible pneumonia patient also have a CSF examination which came back to be negative. On today's evaluation that is 07/26/2022 the patient remains to be afebrile, the patient is breathing comfortably on 7 L nasal cannula, the patient is hemodynamically stable not requiring pressor support , the patient denies having any chest pain or shortness of breath the patient did have mild cough but not bringing up any sputum, nausea no vomiting no abdominal Objective - Vital Signs Vital signs: Vital Signs Temp 98.2 F 07/26/22 08:00 Pulse 106 H 07/26/22 10:00 Resp 20 07/26/22 10:00 BP 84/53 07/26/22 10:00 Pulse Ox 92 L 07/26/22 10:00 FiO2 60 07/24/22 12:00 Intake & Output 07/25/22 07/26/22 07/26/22 18:59 06:59 18:59 Intake Total 1022 1008 183 Output Total 2240 1245 475 Balance -1218 -237 -292 Weight 88.4 kg 84.4 kg Intake: IV 922 1008 183 0.9 KVO 100 130 15 A-line pressure bag 36 39 9 CVP line 36 39 9 Levofloxacin 750Mg-D5w 150 150 Pmx 750 mg In Dextrose/ Water 1 150ml.bag @ 100 mls/hr IVPB Q24H [facility] Rx#: [id number] Potassium Chloride 10 meq 100 In Water For Injection 1 100ml.bag @ 100 mls/hr IVPB Q1H [facility] Rx#: [id number] Potassium Chloride 10 meq 300 In Water For Injection 1 100ml.bag @ 100 mls/hr IVPB Q1H [facility] Rx#: [id number] Vancomycin 1,500 mg In 500 500 Sodium Chloride 0.9% 500 ml 500 ml @ 167 mls/hr IVPB Q12H [facility] Rx#: [id number] Intake, IV Titration 100 Amount Potassium Chloride 10 meq 100 In Water For Injection 1 100ml.bag @ 100 mls/hr IVPB Q1H [facility] Rx#: [id number] Output: Urine 2240 1245 475 Other: Voiding Method Indwelling Catheter Indwelling Catheter Indwelling Catheter ABP, PAP, CO, CI - Last Documented Arterial Blood Pressure 82/44 - Exam GENERAL DESCRIPTION: A middle-aged male lying in bed in no distress RESPIRATORY SYSTEM: Unlabored breathing , decreased intensity of breath sounds bilaterally HEART: S1 S2 regular rate and rhythm , ABDOMEN: Soft , no tenderness EXTREMITIES: No edema feet - Labs CBC & Chem 7: 07/26/22 05:00 07/26/22 10:25 Labs: Abnormal Lab Results - Last 24 Hours (Table) 07/25/22 07/25/22 07/25/22 Range/Units 11:40 11:40 12:08 WBC (3.8-10.6) k/uL RBC (4.30-5.90) m/uL Hgb (13.0-17.5) gm/dL Hct (39.0-53.0) % Neutrophils # (1.3-7.7) k/uL Potassium 3.4 L (3.5-5.1) mmol/L Chloride (98-107) mmol/L Carbon Dioxide (22-30) mmol/L BUN (9-20) mg/dL POC Glucose (mg/dL) 113 H (70-110) mg/dL Calcium (8.4-10.2) mg/dL Vitamin B12 1227.0 H (200.0-944.0) pg/mL 07/26/22 07/26/22 Range/Units 05:00 05:00 WBC 13.7 H (3.8-10.6) k/uL RBC 3.69 L (4.30-5.90) m/uL Hgb 11.2 L (13.0-17.5) gm/dL Hct 34.5 L (39.0-53.0) % Neutrophils # 11.1 H (1.3-7.7) k/uL Potassium (3.5-5.1) mmol/L Chloride 113 H (98-107) mmol/L Carbon Dioxide 20 L (22-30) mmol/L BUN 27 H (9-20) mg/dL POC Glucose (mg/dL) (70-110) mg/dL Calcium 7.6 L (8.4-10.2) mg/dL Vitamin B12 (200.0-944.0) pg/mL Microbiology - Last 24 Hours (Table) 07/24/22 12:52 Blood Culture - Preliminary Blood No Growth after 24 hours 07/19/22 12:10 Blood Culture - Final Blood No Growth after 144 hours 07/24/22 20:21 Gram Stain - Preliminary Sputum Sputum Culture - Preliminary Assessment and Plan (1) Pneumonia Current Visit: Yes Status: Acute Code(s): J18.9 - PNEUMONIA, UNSPECIFIED ORGANISM SNOMED Code(s): 875186703 Plan: 1patient is in the hospital mental status changes in this patient who did have evidence of fever and elevated white count patient currently denies having any headache to me however he didn't mention it to the neurologist underlying meningitis and encephalitis has been ruled out in this patient also have evidence of extensive pneumonia and will need to cover for the gram-positive as well as gram-negative pathogen 2patient urine for Legionella antigen came back positive, sputum and bronchoscopy cultures are so far negative 3patient did have a new fever , repeat cultures are currently pending, patient white count is trending down and the patient fever responded with addition of vancomycin which will be continued and will monitor his clinical course closely continue supportive care Time with Patient: Less than 30
[2022-07-27] MEDS: VANCOMYCIN 1,500 MG in SODIUM CHLORIDE 0.9% 500 ML 500 ML IVPB SCH ×2 (02:07→11:11)
[2022-07-27 06:26] LABS: HCT 37.3 % (39.0-53.0); MCH 30.3 pg (25.0-35.0); MCHC 32.1 g/dL (31.0-37.0); MCV 94.3 fL (80.0-100.0); Platelet Count 384 k/uL (150-450); RBC 3.95 m/uL (4.30-5.90); RDW 13.4 % (11.5-15.5); WBC 17.5 k/uL (3.8-10.6)
[2022-07-27 06:45] LABS: African American GFR (CKD) >90 (>60 ml/min/1.73 sqM); Anion Gap 6 mmol/L; Blood Urea Nitrogen 29 mg/dL (9-20); Calcium 7.5 mg/dL (8.4-10.2); Carbon Dioxide 18 mmol/L (22-30); Chloride 114 mmol/L (98-107); Glucose 101 mg/dL (74-99); Non-African American GFR(CKD) >90 (>60 ml/min/1.73 sqM); Potassium 3.6 mmol/L (3.5-5.1); Sodium 138 mmol/L (137-145)
[2022-07-27] MEDS ORDERED: POTASSIUM BICARBONATE/CIT AC 20 MEQ TABLET.EFF NG-TUBE SCH (08:00)
[2022-07-27] MEDS: ENOXAPARIN 40 MG/0.4 ML SYRINGE SQ SCH (08:20)
[2022-07-27] MEDS: FAMOTIDINE 20 MG TAB PO SCH (08:21)
[2022-07-27] MEDS: LEVOFLOXACIN 750MG-D5W PMX 750 MG in DEXTROSE/WATER 1 150ML.BAG IVPB SCH (08:21)
[2022-07-27] MEDS: IPRATROPIUM-ALBUTEROL 3 ML NEB INHALATION SCH ×4 (09:06→19:51)
--- NOTE | 2022-07-27 10:52 | P.PN ---
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 Is wide awake and following commands and answering questions while being on propofol and is currently on 50 mcg/kg/m and is also fentanyl at 1 mcg/kg/h. He is very comfortable and symptoms the mechanical ventilator. His chest x-ray is essentially unchanged. Nevertheless, his blood gas from today shows a pH of 7.5 1 with a pCO2 of 48 and pO2 of 90. Note that the patient is a case of Legionella pneumonia and he had also developed bilateral pleural effusions right more than left. His peak airway pressure today was around 31 with static airway pressure of 20. Based on that, I dropped his FiO2 down to 50%. I also dropped a PEEP down to 8. He does have some respiratory secretions which are being suctioned out. He seems to be quite comfortable. With those adjustments, his pulse ox is ranging between 92 and 93%. He remains hemodynamically stable. Is being diuresed with IV Lasix. Fluid balance has been -1.6 L over the past 24 hours. His serum bicarb is up to 36 and obviously has become alkalotic. The previous cause of 14.2 with a hemoglobin of 10.3. He is receiving enteral feeding for nutritional support in the form of vital HP at the rate of 27 mL an hour. No other active issues for now. He is hemodynamically stable. He is neurologically intact. No agitation. No fever. There have low-grade fever overnight and this morning he is afebrile. patient was reevaluated today on 07/25/22, patient remains in the ICU, anxiety to his nasal cannula, he was extubated yesterday uneventfully, tolerated the extubation well. Remains on antibiotics for his Legionella pneumonia, his IV fluids at KVO, patient does not seem to be in any distress, however chest x-ray continues to show bilateral air space disease. WBC count is 14.8 hemoglobin is 11.20, electrolytes are normal liver enzymes are borderline elevated. Pro- calcitonin level remains a bit high at 0.43. Reevaluated today on 07/26/2022, patient remains in the ICU, now on 7 L high flow nasal cannula, does not seem to be in any distress, anxiety is being advanced as tolerated. Patient is doing better with incentive spirometry, his IV fluid is at 10 mL per hour. No major hemodynamic issues or arrhythmia overnight, patient will be transferred today out of the ICU to a monitor bed on selective. He did have one episode yesterday of atrial fibrillation lasted about 1 minute, rate was about 150. WBC count today is 13.7 hemoglobin is 11.2. Normal renal profile is normal, blood cultures have been negative so far. Sputum cultures are nondiagnostic. Legionella urine antigen was positive. Reevaluated today on 07/27/22, patient is doing well, he is on 5 L nasal cannula, remains on antibiotics as per infectious disease, patient had a relatively low blood pressure and did not require any treatment, his Lasix today has been p laced on hold as the patient seems to be relatively dehydrated. Today he has a relatively normal blood pressure, patient is asymptomatic, no cough no wheezing no shortness of breath. And I plan to transfer the patient out of the ICU to a monitor bed today if possible.WBC and 17.5 hemoglobin is 12. electrolytes are Normal renal profile is normal. Objective - Vital Signs Vital signs: Vital Signs Temp 98.2 F 07/27/22 04:00 Pulse 109 H 07/27/22 09:07 Resp 16 07/27/22 09:07 BP 108/61 07/27/22 09:00 Pulse Ox 92 L 07/27/22 09:07 FiO2 55 07/26/22 12:00 Intake & Output 07/26/22 07/27/22 07/27/22 18:59 06:59 18:59 Intake Total 1279 100 15 Output Total 1010 1375 85 Balance 269 -1275 -70 Weight 84.3 kg Intake: IV 1279 100 15 0.9 KVO 75 100 15 A-line pressure bag 27 CVP line 27 Levofloxacin 750Mg-D5w 150 Pmx 750 mg In Dextrose/ Water 1 150ml.bag @ 100 mls/hr IVPB Q24H [facility] Rx#: [id number] Vancomycin 1,500 mg In 1000 Sodium Chloride 0.9% 500 ml 500 ml @ 167 mls/hr IVPB Q12H [facility] Rx#: [id number] Output: Urine 1010 1375 85 Other: Voiding Method Indwelling Catheter Indwelling Catheter Indwelling Catheter ABP, PAP, CO, CI - Last Documented Arterial Blood Pressure 107/52 - Exam Physical Exam: Revealed a 52-year-old white male in no distress on 5 L high flow nasal cannula head: Atraumatic, normocephalic. HEENT:[Neck is supple.] [No neck masses.] [No thyromegaly.] [No JVD.] Chest: [ Crackles at the bases, no rhonchi and no wheezes Cardiac Exam: [Normal S1 and S2, no S3 gallop, no murmur.] Abdomen: [Soft, nontender, no megaly, no rebound, no guarding, normal bowel sounds.] Extremities: [No clubbing, no edema, no cyanosis.] Neurological Exam: [No focal neurologic deficit.] alert oriented 3. Psychiatric: Normal mood affect and normal mental status examination. Skin: No rashes - Labs CBC & Chem 7: 07/27/22 05:48 07/27/22 05:48 Labs: Abnormal Lab Results - Last 24 Hours (Table) 07/26/22 07/27/22 07/27/22 Range/Units 10:25 05:48 05:48 WBC 17.5 H (3.8-10.6) k/uL RBC 3.95 L (4.30-5.90) m/uL Hgb 12.0 L (13.0-17.5) gm/dL Hct 37.3 L (39.0-53.0) % Chloride 114 H 114 H (98-107) mmol/L Carbon Dioxide 18 L 18 L (22-30) mmol/L BUN 27 H 29 H (9-20) mg/dL Glucose 114 H 101 H (74-99) mg/dL Calcium 7.7 L 7.5 L (8.4-10.2) mg/dL Microbiology - Last 24 Hours (Table) 07/24/22 20:21 Gram Stain - Final Sputum Sputum Culture - Final 07/24/22 12:52 Blood Culture - Preliminary Blood No Growth after 48 hours Assessment and Plan Assessment: impression: Acute hypoxic respiratory failure secondary to legionnaire's disease/pneumonia extensive bilateral pneumonia, Legionella urine antigen was positive bilateral pleural effusions, resolved history of alcoholism. Recommendation: Continue antibiotics patient is on Levaquin and vancomycin as ordered by infectious disease on the case. Continue DVT prophylaxis patient is on Lovenox hold diuretics. Transfer patient to a monitor bed today and continue to follow advance diet as tolerated Continue GI prophylaxis Time with Patient: Less than 30
[2022-07-27] MEDS: CALAMINE/ZINC OXIDE LOTION 177 ML BTL TOPICAL SCH ×2 (11:11→20:54)
--- NOTE | 2022-07-27 15:19 | P.PN ---
Subjective Progress Note Date: 07/27/22 Principal diagnosis: Fever and pneumonia Patient is a 52-year-old male who was brought into the ER via EMS and police after apparently the patient was noticed to be altered mentally when he was stopped by the special police officer patient apparently was followed by the special police officer on the expressway as the patient was receiving and not pulling immediately but no accident has happened, patient wasn't to be slightly confused and oxygen with a question of possible pneumonia patient also have a CSF examination which came back to be negative. On today's evaluation that is 07/27/2022 the patient continues to be afebrile, the patient is breathing comfortably on 5 L nasal cannula, the patient is hemodynamically stable not requiring pressor support , the patient denies having any chest pain or shortness of breath the patient cough has decreased in intensity not productive no nausea no vomiting no diarrhea patient has developed itchy rash mostly to the upper extremity thigh and upper chest but no rash on the back no lesion in the mouth or difficulty swallowing Objective - Vital Signs Vital signs: Vital Signs Temp 97.9 F 07/27/22 12:00 Pulse 100 07/27/22 12:44 Resp 18 07/27/22 12:44 BP 107/66 07/27/22 12:00 Pulse Ox 96 07/27/22 12:00 FiO2 55 07/26/22 12:00 Intake & Output 07/26/22 07/27/22 07/27/22 18:59 06:59 18:59 Intake Total 1279 100 15 Output Total 1010 1375 85 Balance 269 -1275 -70 Weight 84.3 kg Intake: IV 1279 100 15 0.9 KVO 75 100 15 A-line pressure bag 27 CVP line 27 Levofloxacin 750Mg-D5w 150 Pmx 750 mg In Dextrose/ Water 1 150ml.bag @ 100 mls/hr IVPB Q24H [facility] Rx#: [id number] Vancomycin 1,500 mg In 1000 Sodium Chloride 0.9% 500 ml 500 ml @ 167 mls/hr IVPB Q12H [facility] Rx#: [id number] Output: Urine 1010 1375 85 Other: Voiding Method Indwelling Catheter Indwelling Catheter Indwelling Catheter ABP, PAP, CO, CI - Last Documented Arterial Blood Pressure 107/52 - Exam GENERAL DESCRIPTION: A middle-aged male lying in bed in no distress HEENT: Oral thrush RESPIRATORY SYSTEM: Unlabored breathing , decreased intensity of breath sounds bilaterally HEART: S1 S2 regular rate and rhythm , ABDOMEN: Soft , no tenderness EXTREMITIES: No edema feet - Labs CBC & Chem 7: 07/27/22 05:48 07/27/22 05:48 Labs: Abnormal Lab Results - Last 24 Hours (Table) 07/27/22 07/27/22 Range/Units 05:48 05:48 WBC 17.5 H (3.8-10.6) k/uL RBC 3.95 L (4.30-5.90) m/uL Hgb 12.0 L (13.0-17.5) gm/dL Hct 37.3 L (39.0-53.0) % Chloride 114 H (98-107) mmol/L Carbon Dioxide 18 L (22-30) mmol/L BUN 29 H (9-20) mg/dL Glucose 101 H (74-99) mg/dL Calcium 7.5 L (8.4-10.2) mg/dL Microbiology - Last 24 Hours (Table) 07/24/22 20:21 Gram Stain - Final Sputum Sputum Culture - Final 07/24/22 12:52 Blood Culture - Preliminary Blood No Growth after 48 hours Assessment and Plan (1) Pneumonia Current Visit: Yes Status: Acute Code(s): J18.9 - PNEUMONIA, UNSPECIFIED ORGANISM SNOMED Code(s): 708156763 Plan: 1patient is in the hospital mental status changes in this patient who did have evidence of fever and elevated white count patient currently denies having any headache to me however he didn't mention it to the neurologist underlying meningitis and encephalitis has been ruled out in this patient also have evidence of extensive pneumonia and will need to cover for the gram-positive as well as gram-negative pathogen 2patient urine for Legionella antigen came back positive, sputum and bronchoscopy cultures are negative 3patient did have a new fever , however repeat culture has been negative so far patient now developing a rash questionably vancomycin related vancomycin will be discontinued 4elevated white count more likely related to thrush and possible oropharyngeal candidiasis we will add nystatin swish and swallow and oral Diflucan and monitor his white count closely Time with Patient: Less than 30
[2022-07-27] MEDS ORDERED: FLUCONAZOLE 100 MG TAB PO ONE (16:00)
[2022-07-27] MEDS ORDERED: MELATONIN 5 MG TABLET PO PRN (18:41)
--- NOTE | 2022-07-27 18:41 | P.PN ---
Subjective 52-year-old male who presents to the emergency department, via EMS, on July 15. Initially, thought to be a code stroke, but, the neurologist saw the patient may have some sort of [employer] infection, or encephalopathy secondary to an infection elsewhere. Eventually patient found to have bilateral Legionella pneumonia and vaginal antigen was positive in the urine. Patient is currently kept in the ICU monitored very closely. Distal hypoxic requiring 7 L of oxygen. He had fever 2 days ago at 105. Distal tachypneic with a breathing rate 21-26. Progress calcitonin elevated 0.43 and he has leukocytosis was 13. Currently he is covered with spectrum antibiotic and monitored closely I reviewed the chest by myself showing bilateral infiltrate mainly around the lung bases and more on the right side. 07/27/2022 Patient reports his breathing is okay today although he was not distal tachypneic Oxygen requirement went down 7 down to 5 L/m E Schwartz dysphagia diet well Also developed some rash on both arms posteriorly and lower back, Benadryl and lotion provided for him Also is complaining of from some insomnia and melatonin is admitted He has leukocytosis. No more fever Antibiotics were adjusted to Levaquin, continued. IV vancomycin was discontinued. Added fluconazole and nystatin for oral pharyngeal candidiasis. Objective - Vital Signs Vital signs: Vital Signs Temp 98.2 F 07/27/22 04:00 Pulse 109 H 07/27/22 09:07 Resp 16 07/27/22 09:07 BP 108/61 07/27/22 09:00 Pulse Ox 92 L 07/27/22 09:07 FiO2 55 07/26/22 12:00 Intake & Output 07/26/22 07/27/22 07/27/22 18:59 06:59 18:59 Intake Total 1279 100 15 Output Total 1010 1375 85 Balance 269 -5955 -70 Weight 84.3 kg Intake: IV 1279 100 15 0.9 KVO 75 100 15 A-line pressure bag 27 CVP line 27 Levofloxacin 750Mg-D5w 150 Pmx 750 mg In Dextrose/ Water 1 150ml.bag @ 100 mls/hr IVPB Q24H [facility] Rx#: [id number] Vancomycin 1,500 mg In 1000 Sodium Chloride 0.9% 500 ml 500 ml @ 167 mls/hr IVPB Q12H [facility] Rx#: [id number] Output: Urine 1010 1375 85 Other: Voiding Method Indwelling Catheter Indwelling Catheter Indwelling Catheter ABP, PAP, CO, CI - Last Documented Arterial Blood Pressure 107/52 - Exam GENERAL: The patient is alert and oriented x3, not in any acute distress. Well developed, well nourished. HEENT: Pupils are round and equally reacting to light. EOMI. No scleral icterus. No conjunctival pallor. Normocephalic, atraumatic. No pharyngeal erythema. No thyromegaly. CARDIOVASCULAR: S1 and S2 present. No murmurs, rubs, or gallops. PULMONARY: Chest is clear to auscultation, no wheezing , Bilateral crepitation especially in the lung bases ABDOMEN: Soft, nontender, nondistended, normoactive bowel sounds. No palpable organomegaly. MUSCULOSKELETAL: No joint swelling or deformity. EXTREMITIES: No cyanosis, clubbing, or pedal edema. NEUROLOGICAL: Gross neurological examination did not reveal any focal deficits. SKIN: No rashes. no petechiae. - Labs CBC & Chem 7: 07/27/22 05:48 07/27/22 05:48 Labs: Abnormal Lab Results - Last 24 Hours (Table) 07/26/22 07/27/22 07/27/22 Range/Units 10:25 05:48 05:48 WBC 17.5 H (3.8-10.6) k/uL RBC 3.95 L (4.30-5.90) m/uL Hgb 12.0 L (13.0-17.5) gm/dL Hct 37.3 L (39.0-53.0) % Chloride 114 H 114 H (98-107) mmol/L Carbon Dioxide 18 L 18 L (22-30) mmol/L BUN 27 H 29 H (9-20) mg/dL Glucose 114 H 101 H (74-99) mg/dL Calcium 7.7 L 7.5 L (8.4-10.2) mg/dL Microbiology - Last 24 Hours (Table) 07/24/22 20:21 Gram Stain - Final Sputum Sputum Culture - Final 07/24/22 12:52 Blood Culture - Preliminary Blood No Growth after 48 hours Assessment and Plan Assessment: Acute bilateral pneumonia, legionnaire pneumonia Acute hypoxic respiratory failure Sepsis with fever and leukocytosis 2 small incidental liver cyst requiring evaluation with MRI and computed tomography scan 1 pneumonia resolved. Generalized weakness oral pharyngeal candidiasis Plan: Continue with antibiotic with Levaquin and fluconazole and nystatin Pulmonary and infectious disease consult on the case Neurology service signed off. Patient will recommended to have of the liver imaging as an outpatient for his liver cyst Labs and medication were reviewed.. Continue same treatment. Continue with symptomatic treatment. Resume home medication. Monitor lytes and vitals. DVT and GI prophylaxis. Further recommendations as per clinical course of the patient DVT prophylaxis: Subcutaneous Lovenox GI Prophylaxis: Pepcid PT/OT: Pending Prognosis is guarded
[2022-07-27] MEDS: NYSTATIN 100,000 UNIT/ML SUSP 500,000 UNIT/5 ML CUP PO SCH ×2 (19:10→20:54)
[2022-07-28 07:24] LABS: Basophils # (A) 0.1 k/uL (0-0.2); Basophils % (A) 0 %; Eosinophils # (A) 0.4 k/uL (0-0.7); Eosinophils % (A) 3 %; HCT 35.8 % (39.0-53.0); HGB 11.8 gm/dL (13.0-17.5); Lymphocytes # (A) 2.8 k/uL (1.0-4.8); Lymphocytes % (A) 19 %; MCH 30.2 pg (25.0-35.0); MCHC 32.8 g/dL (31.0-37.0); Mean Platelet Volume 8.1; Monocytes # (A) 0.5 k/uL (0-1.0); Monocytes % (A) 3 %; Neutrophils # (A) 10.8 k/uL (1.3-7.7); Neutrophils % (A) 73 %; Platelet Count 348 k/uL (150-450); RBC 3.89 m/uL (4.30-5.90); RDW 13.3 % (11.5-15.5); WBC 14.8 k/uL (3.8-10.6)
[2022-07-28 07:36] LABS: ALT 123 U/L (4-49); AST 58 U/L (17-59); African American GFR (CKD) >90 (>60 ml/min/1.73 sqM); Albumin 2.5 g/dL (3.5-5.0); Alkaline Phosphatase 80 U/L (38-126); Anion Gap 5 mmol/L; Bilirubin, Delta 0.5 mg/dL (0.0-0.2); Bilirubin,Unconjugated 0.1 mg/dL (0.0-1.1); Blood Urea Nitrogen 25 mg/dL (9-20); Calcium 7.6 mg/dL (8.4-10.2); Carbon Dioxide 21 mmol/L (22-30); Chloride 111 mmol/L (98-107); Glucose 95 mg/dL (74-99); Non-African American GFR(CKD) >90 (>60 ml/min/1.73 sqM); Potassium 3.7 mmol/L (3.5-5.1); Sodium 137 mmol/L (137-145); Total Bilirubin 0.6 mg/dL (0.2-1.3); Total Protein 5.2 g/dL (6.3-8.2)
[2022-07-28] MEDS: IPRATROPIUM-ALBUTEROL 3 ML NEB INHALATION SCH ×4 (08:12→20:24)
--- NOTE | 2022-07-28 08:39 | XR ---
EXAMINATION TYPE: XR chest 1V portable DATE OF EXAM: 07/28/2022 COMPARISON: 07/25/2022 HISTORY: Cough TECHNIQUE: Single frontal view of the chest is obtained. FINDINGS: Limited inspiration with bilateral lower lobe infiltrate and small effusion. Heart size is normal. Nodular appearing density in the left paratracheal region in the left upper lobe. No sizable pneumothorax. IMPRESSION: 1. Bilateral infiltrates and small effusions stable. Pulmonary nodule medial left upper lobe
[2022-07-28] MEDS: LEVOFLOXACIN 750MG-D5W PMX 750 MG in DEXTROSE/WATER 1 150ML.BAG IVPB SCH (09:04)
[2022-07-28] MEDS: CALAMINE/ZINC OXIDE LOTION 177 ML BTL TOPICAL SCH ×2 (09:05→20:49)
[2022-07-28] MEDS: NYSTATIN 100,000 UNIT/ML SUSP 500,000 UNIT/5 ML CUP PO SCH ×4 (09:05→20:49)
[2022-07-28] MEDS: FLUCONAZOLE 100 MG TAB PO SCH (09:05)
[2022-07-28] MEDS: FAMOTIDINE 20 MG TAB PO SCH (09:05)
[2022-07-28] MEDS: ENOXAPARIN 40 MG/0.4 ML SYRINGE SQ SCH (09:05)
--- NOTE | 2022-07-28 10:33 | P.PN ---
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 Is wide awake and following commands and answering questions while being on propofol and is currently on 50 mcg/kg/m and is also fentanyl at 1 mcg/kg/h. He is very comfortable and symptoms the mechanical ventilator. His chest x-ray is essentially unchanged. Nevertheless, his blood gas from today shows a pH of 7.5 1 with a pCO2 of 48 and pO2 of 90. Note that the patient is a case of Legionella pneumonia and he had also developed bilateral pleural effusions right more than left. His peak airway pressure today was around 31 with static airway pressure of 20. Based on that, I dropped his FiO2 down to 50%. I also dropped a PEEP down to 8. He does have some respiratory secretions which are being suctioned out. He seems to be quite comfortable. With those adjustments, his pulse ox is ranging between 92 and 93%. He remains hemodynamically stable. Is being diuresed with IV Lasix. Fluid balance has been -1.6 L over the past 24 hours. His serum bicarb is up to 36 and obviously has become alkalotic. The previous cause of 14.2 with a hemoglobin of 10.3. He is receiving enteral feeding for nutritional support in the form of vital HP at the rate of 27 mL an hour. No other active issues for now. He is hemodynamically stable. He is neurologically intact. No agitation. No fever. There have low-grade fever overnight and this morning he is afebrile. patient was reevaluated today on 07/25/22, patient remains in the ICU, anxiety to his nasal cannula, he was extubated yesterday uneventfully, tolerated the extubation well. Remains on antibiotics for his Legionella pneumonia, his IV fluids at KVO, patient does not seem to be in any distress, however chest x-ray continues to show bilateral air space disease. WBC count is 14.8 hemoglobin is 11.20, electrolytes are normal liver enzymes are borderline elevated. Pro- calcitonin level remains a bit high at 0.43. Reevaluated today on 07/26/2022, patient remains in the ICU, now on 7 L high flow nasal cannula, does not seem to be in any distress, anxiety is being advanced as tolerated. Patient is doing better with incentive spirometry, his IV fluid is at 10 mL per hour. No major hemodynamic issues or arrhythmia overnight, patient will be transferred today out of the ICU to a monitor bed on selective. He did have one episode yesterday of atrial fibrillation lasted about 1 minute, rate was about 150. WBC count today is 13.7 hemoglobin is 11.2. Normal renal profile is normal, blood cultures have been negative so far. Sputum cultures are nondiagnostic. Legionella urine antigen was positive. Reevaluated today on 07/27/22, patient is doing well, he is on 5 L nasal cannula, remains on antibiotics as per infectious disease, patient had a relatively low blood pressure and did not require any treatment, his Lasix today has been p laced on hold as the patient seems to be relatively dehydrated. Today he has a relatively normal blood pressure, patient is asymptomatic, no cough no wheezing no shortness of breath. And I plan to transfer the patient out of the ICU to a monitor bed today if possible.WBC and 17.5 hemoglobin is 12. electrolytes are Normal renal profile is normal. Reevaluated today on 07/28/22, patient remains as an overflow in the ICU, remains on 4 L nasal cannula, O2 sats is 97%. Follow-up chest x-ray today showed definite improvement in his bilateral infiltrates, not completely resolved. Clinically the patient is doing much better. And his vancomycin was discontinued, I believe the patient could even be transitioned to oral Levaquin instead of IV Levaquin, he is being followed by infectious disease. WBC DC count today is 14.8 hemoglobin is 11.8 electrolytes are normal renal profile is normal. Patient is relatively asymptomatic. Except he developed a rash that is being treated and the rash was felt to be vancomycin related. He is now on Benadryl. Antibiotics mahan the patient is on Levaquin, he is also on fluconazole for oral thrush Objective - Vital Signs Vital signs: Vital Signs Temp 98.4 F 07/28/22 04:00 Pulse 98 07/28/22 08:23 Resp 24 07/28/22 04:00 BP 107/59 07/28/22 04:00 Pulse Ox 97 07/28/22 04:00 FiO2 55 07/26/22 12:00 Intake & Output 07/27/22 07/28/22 07/28/22 18:59 06:59 18:59 Intake Total 15 Output Total 410 495 Balance -395 -495 Weight 81.2 kg Intake: IV 15 0.9 KVO 15 Output: Urine 410 495 Other: Voiding Method Indwelling Catheter Indwelling Catheter ABP, PAP, CO, CI - Last Documented Arterial Blood Pressure 107/52 - Exam Physical Exam: Revealed a 52-year-old white male in no distress on 4 L high flow nasal cannula head: Atraumatic, normocephalic. HEENT:[Neck is supple.] [No neck masses.] [No thyromegaly.] [No JVD.] Chest: [ Crackles at the bases, no rhonchi and no wheezes Cardiac Exam: [Normal S1 and S2, no S3 gallop, no murmur.] Abdomen: [Soft, nontender, no megaly, no rebound, no guarding, normal bowel sounds.] Extremities: [No clubbing, no edema, no cyanosis.] Neurological Exam: [No focal neurologic deficit.] alert oriented 3. Psychiatric: Normal mood affect and normal mental status examination. Skin: No rashes - Labs CBC & Chem 7: 07/28/22 06:45 07/28/22 06:45 Labs: Abnormal Lab Results - Last 24 Hours (Table) 07/28/22 07/28/22 Range/Units 06:45 06:45 WBC 14.8 H (3.8-10.6) k/uL RBC 3.89 L (4.30-5.90) m/uL Hgb 11.8 L (13.0-17.5) gm/dL Hct 35.8 L (39.0-53.0) % Neutrophils # 10.8 H (1.3-7.7) k/uL Chloride 111 H (98-107) mmol/L Carbon Dioxide 21 L (22-30) mmol/L BUN 25 H (9-20) mg/dL Calcium 7.6 L (8.4-10.2) mg/dL Delta Bilirubin 0.5 H (0.0-0.2) mg/dL ALT 123 H (4-49) U/L Total Protein 5.2 L (6.3-8.2) g/dL Albumin 2.5 L (3.5-5.0) g/dL Microbiology - Last 24 Hours (Table) 07/24/22 12:52 Blood Culture - Preliminary Blood No Growth after 72 hours 07/24/22 20:21 Gram Stain - Final Sputum Sputum Culture - Final Assessment and Plan Assessment: impression: Acute hypoxic respiratory failure secondary to legionnaire's disease/pneumonia extensive bilateral pneumonia, Legionella urine antigen was positive bilateral pleural effusions, resolved history of alcoholism. Recommendation: Continue antibiotics , may consider transitioning to oral Levaquin Transferred to a regular medical floor Continue to hold diuretics Continue DVT prophylaxis Possible discharge planning in the next 24-48 hours Continue DVT prophylaxis patient is on Lovenox We will continue to follow Time with Patient: Less than 30
--- NOTE | 2022-07-28 11:54 | P.PN ---
Subjective Progress Note Date: 07/28/22 Principal diagnosis: Fever and pneumonia Patient is a 52-year-old male who was brought into the ER via EMS and police after apparently the patient was noticed to be altered mentally when he was stopped by the detention officer patient apparently was followed by the detention officer on the express[place] as the patient was receiving and not pulling immediately but no accident has happened, patient wasn't to be slightly confused and oxygen with a question of possible pneumonia patient also have a CSF examination which came back to be negative. On today's evaluation that is 07/28/2022 the patient remains to be afebrile, the patient is breathing comfortably on 5 L nasal cannula, the patient denies having any chest pain or shortness of breath the patient cough has decreased in intensity not productive, the patient denies nausea no vomiting no diarrhea patient rash mostly to the upper extremity thigh and upper chest has decreased in intensity Objective - Vital Signs Vital signs: Vital Signs Temp 98.4 F 07/28/22 04:00 Pulse 98 07/28/22 08:23 Resp 24 07/28/22 04:00 BP 107/59 07/28/22 04:00 Pulse Ox 97 07/28/22 04:00 FiO2 55 07/26/22 12:00 Intake & Output 07/27/22 07/28/22 07/28/22 18:59 06:59 18:59 Intake Total 15 Output Total 410 495 Balance -395 -495 Weight 81.2 kg Intake: IV 15 0.9 KVO 15 Output: Urine 410 495 Other: Voiding Method Indwelling Catheter Indwelling Catheter ABP, PAP, CO, CI - Last Documented Arterial Blood Pressure 107/52 - Exam GENERAL DESCRIPTION: A middle-aged male lying in bed in no distress HEENT: Oral thrush RESPIRATORY SYSTEM: Unlabored breathing , decreased intensity of breath sounds bilaterally HEART: S1 S2 regular rate and rhythm , ABDOMEN: Soft , no tenderness EXTREMITIES: No edema feet - Labs CBC & Chem 7: 07/28/22 06:45 07/28/22 06:45 Labs: Abnormal Lab Results - Last 24 Hours (Table) 07/28/22 07/28/22 Range/Units 06:45 06:45 WBC 14.8 H (3.8-10.6) k/uL RBC 3.89 L (4.30-5.90) m/uL Hgb 11.8 L (13.0-17.5) gm/dL Hct 35.8 L (39.0-53.0) % Neutrophils # 10.8 H (1.3-7.7) k/uL Chloride 111 H (98-107) mmol/L Carbon Dioxide 21 L (22-30) mmol/L BUN 25 H (9-20) mg/dL Calcium 7.6 L (8.4-10.2) mg/dL Delta Bilirubin 0.5 H (0.0-0.2) mg/dL ALT 123 H (4-49) U/L Total Protein 5.2 L (6.3-8.2) g/dL Albumin 2.5 L (3.5-5.0) g/dL Microbiology - Last 24 Hours (Table) 07/24/22 12:52 Blood Culture - Preliminary Blood No Growth after 72 hours 07/24/22 20:21 Gram Stain - Final Sputum Sputum Culture - Final Assessment and Plan (1) Pneumonia Current Visit: Yes Status: Acute Code(s): J18.9 - PNEUMONIA, UNSPECIFIED ORGANISM SNOMED Code(s): 198945265 Plan: 1patient is in the hospital mental status changes in this patient who did have evidence of fever and elevated white count, patient has been diagnosed with Legionella pneumonia for which the patient is currently covered with Levaquin 2-rash questionably related to vancomycin which has been discontinued 3elevated white count more likely related to thrush and possible oropharyngeal candidiasis, patient to continue with nystatin swish and swallow and oral Diflucan and the patient white count 14,000 today Time with Patient: Less than 30
--- NOTE | 2022-07-28 22:16 | P.PN ---
Subjective 52-year-old male who presents to the emergency department, via EMS, on July 15. Initially, thought to be a code stroke, but, the neurologist saw the patient may have some sort of [employer] SUPERVIS[employer] infection, or encephalopathy secondary to an infection elsewhere. Eventually patient found to have bilateral Legionella pneumonia and vaginal antigen was positive in the urine. Patient is currently kept in the ICU monitored very closely. Distal hypoxic requiring 7 L of oxygen. He had fever 2 days ago at 105. Distal tachypneic with a breathing rate 21-26. Progress calcitonin elevated 0.43 and he has leukocytosis was 13. Currently he is covered with spectrum antibiotic and monitored closely I reviewed the chest by myself showing bilateral infiltrate mainly around the lung bases and more on the right side. 07/27/2022 Patient reports his breathing is okay today although he was not distal tachypneic Oxygen requirement went down 7 down to 5 L/m E Schwartz dysphagia diet well Also developed some rash on both arms posteriorly and lower back, Benadryl and lotion provided for him Also is complaining of from some insomnia and melatonin is admitted He has leukocytosis. No more fever Antibiotics were adjusted to Levaquin, continued. IV vancomycin was discontinued. Added fluconazole and nystatin for oral pharyngeal candidiasis. 07/28/2022 pt is doing well generally , he is on room air, no resp distress no other new complaint he looks somewhat tired ,pt/ot recommended rehab vs [facility] hemodynamically stable he is kept on antibiotics of levaquin and fluconazole and nystatin , today i told him about his two liver cysts that will need mri of the liver , this can be done as outpatient ,risk including but not limited to cancer are explained to the tpt and he verbalized understanding and acceptance possible dc in 24-48 hr if he keep improving Objective - Vital Signs Vital signs: Vital Signs Temp 98.1 F 07/28/22 20:00 Pulse 96 07/28/22 20:38 Resp 20 07/28/22 20:00 BP 109/66 07/28/22 20:00 Pulse Ox 98 07/28/22 20:00 FiO2 55 07/26/22 12:00 Intake & Output 07/28/22 07/28/22 07/29/22 06:59 18:59 06:59 Intake Total 10 Output Total 495 40 Balance -495 -40 10 Weight 81.2 kg Intake: IV 10 Invasive Line 1 10 Output: Urine 495 Post Void Residual 40 Other: Voiding Method Indwelling Catheter Indwelling Catheter # Voids 1 # Bowel Movements 1 ABP, PAP, CO, CI - Last Documented Arterial Blood Pressure 107/52 - Exam GENERAL: The patient is alert and oriented x3, not in any acute distress. Well developed, well nourished. HEENT: Pupils are round and equally reacting to light. EOMI. No scleral icterus. No conjunctival pallor. Normocephalic, atraumatic. No pharyngeal erythema. No thyromegaly. CARDIOVASCULAR: S1 and S2 present. No murmurs, rubs, or gallops. PULMONARY: Chest is clear to auscultation, no wheezing , Bilateral crepitation especially in the lung bases ABDOMEN: Soft, nontender, nondistended, normoactive bowel sounds. No palpable organomegaly. MUSCULOSKELETAL: No joint swelling or deformity. EXTREMITIES: No cyanosis, clubbing, or pedal edema. NEUROLOGICAL: Gross neurological examination did not reveal any focal deficits. SKIN: No rashes. no petechiae. - Labs CBC & Chem 7: 07/28/22 06:45 07/28/22 06:45 Labs: Abnormal Lab Results - Last 24 Hours (Table) 07/28/22 07/28/22 Range/Units 06:45 06:45 WBC 14.8 H (3.8-10.6) k/uL RBC 3.89 L (4.30-5.90) m/uL Hgb 11.8 L (13.0-17.5) gm/dL Hct 35.8 L (39.0-53.0) % Neutrophils # 10.8 H (1.3-7.7) k/uL Chloride 111 H (98-107) mmol/L Carbon Dioxide 21 L (22-30) mmol/L BUN 25 H (9-20) mg/dL Calcium 7.6 L (8.4-10.2) mg/dL Delta Bilirubin 0.5 H (0.0-0.2) mg/dL ALT 123 H (4-49) U/L Total Protein 5.2 L (6.3-8.2) g/dL Albumin 2.5 L (3.5-5.0) g/dL Microbiology - Last 24 Hours (Table) 07/24/22 12:52 Blood Culture - Preliminary Blood No Growth after 96 hours Assessment and Plan Assessment: Acute bilateral pneumonia, legionnaire pneumonia Acute hypoxic respiratory failure Sepsis with fever and leukocytosis 2 small incidental liver cyst requiring evaluation with MRI and computed tomography scan 1 pneumonia resolved. Generalized weakness oral pharyngeal candidiasis Plan: Continue with antibiotic with Levaquin and fluconazole and nystatin Pulmonary and infectious disease consult on the case Neurology service signed off. we recommended for the pt to have of the liver imaging as an outpatient for his liver cyst, he agrees Labs and medication were reviewed.. Continue same treatment. Continue with symptomatic treatment. Resume home medication. Monitor lytes and vitals. DVT and GI prophylaxis. Further recommendations as per clinical course of the patient DVT prophylaxis: Subcutaneous Lovenox GI Prophylaxis: Pepcid PT/OT: Pending Prognosis is guarded
--- NOTE | 2022-07-29 05:47 | P.CONS ---
History of Present Illness - Chief Complaint Gait disturbance - History of Present Illness I had the opportunity to see patient for inpatient rehab consultation. Patient admitted to [facility] 19 found by police driving erratically but not attempting to get away. Speech changes noted and mental status change or confusion. Seen by neurology, Dr. Thierno Case for the gait disturbance. Workup negative for stroke. Seen by Dr. Quiñones and Dr. Case for ICU care and out pneumonia encephalopathy and legionnaires. Initial head CT negative. Angiogram CT demonstrates only left inner space disease. Brain MRI with nonspecific white matter change only especially left parietal area. Chest CT consistent with ARDS versus pneumonia. Chest x-rays followed for bilateral infiltrate, small effusions and left upper lobe nodule. Has started therapy. Speech assessing swallowing recommend mechanical soft and thin liquid. PT reports modified independent bed mobility transfers and supervision for gait 60 feet with roller walker. Fatigues. OT reports independent with feeding, supervision for groo mayela and upper dressing, minimal assistance for lower dressing, bathing, toileting and supervision functional movement and transfer. Previous functional history as elicited from patient: 52-year-old right-handed white male who is single lives in one floor home alone. 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 Currently and short-term disability related to the hospitalization. Describes independent with own cooking, laundry, driving, standing shower gait without device. PCP Dr. Kristopher Wyatt. Denies tobacco has occasional drink. Review of Systems Review of systems: ENT: Denies sneezes or discharge. Eyes: Denies discharge or photophobia. Cardiac: Denies chest pain or palpitation. Pulmonary: Denies cough or shortness of breath. Gastrointestinal: Denies nausea, emesis, constipation, diarrhea. Genitourinary: Denies discharge or frequency. Musculoskeletal: Denies muscle or bone aches. Neurologic: Describes changes in cognition. Reports independent in room in cluding bathroom. Endocrine: Denies shakes or sweats. Oncology: Denies cancers. Dermatologic: Denies rash, itching, pruritus. ALLERGY/immunology: Denies sneezes, rashes. Past Medical History Past Medical History: No Reported History History of Any Multi-Drug Resistant Organisms: None Reported Past Surgical History: No Surgical Hx Reported Past Anesthesia/Blood Transfusion Reactions: No Reported Reaction Past Psychological History: No Psychological Hx Reported Smoking Status: Never smoker Past Alcohol Use History: None Reported Past Drug Use History: None Reported - Past Family History Brother(s) Family Medical History: Cancer Mother Additional Family Medical History / Comment(s): CABG Medications and Allergies Home Medications Medication Instructions Recorded Confirmed Type No Known Home Medications 07/15/22 07/15/22 History Allergies Allergy/AdvReac Type Severity Reaction Status Date / Time No Known Allergies Allergy Verified 07/15/22 17:42 Physical Exam Vitals: Vital Signs Temp Pulse Pulse Resp BP BP BP 07/29/22 04:00 98.2 F 92 20 121/63 07/29/22 03:47 07/29/22 00:00 98.5 F 94 19 102/62 07/28/22 20:38 96 07/28/22 20:24 96 07/28/22 20:00 98.1 F 97 20 109/66 07/28/22 16:00 98.1 F 105 H 20 105/71 07/28/22 15:14 94 07/28/22 15:05 100 07/28/22 13:30 98.3 F 95 20 105/62 07/28/22 12:00 97.6 F 90 20 109/73 07/28/22 11:19 95 07/28/22 11:08 93 07/28/22 11:00 92 26 H 109/73 07/28/22 08:23 98 07/28/22 08:12 102 H 07/28/22 08:00 97.4 F L 102 H 22 107/59 Pulse Ox 07/29/22 04:00 96 07/29/22 03:47 97 07/29/22 00:00 97 07/28/22 20:38 07/28/22 20:24 07/28/22 20:00 98 07/28/22 16:00 98 07/28/22 15:14 07/28/22 15:05 07/28/22 13:30 95 07/28/22 12:00 07/28/22 11:19 07/28/22 11:08 07/28/22 11:00 07/28/22 08:23 07/28/22 08:12 07/28/22 08:00 95 Intake and Output 07/28/22 07/28/22 07/29/22 14:59 22:59 06:59 Intake Total 10 Output Total 40 Balance -30 Intake: IV 10 Invasive Line 1 10 Output: Post Void Residual 40 Other: Voiding Method Indwelling Catheter Toilet Toilet # Voids 1 0 1 # Bowel Movements 1 0 1 Skin: Good color, texture, turgor. General: Medium build and comfortable appearance. Head: Normocephalic, atraumatic. Eyes: Symmetric. Pupils equal round. Ears: Symmetric. Hearing within normal limits. Mouth: Clear. Neck: Supple. Carotid without bruit. Cardiac: Regular rate and rhythm. Lungs: Clear anteriorly and posteriorly. Abdomen: Soft active nontender. Extremities: Normal tone. Neurological: Mental status: Alert, cooperative, pleasant. Cranial nerves: Symmetric facial tone and trapezius. Motor: Normal strength and isolation all 4 limbs. Sensation: Intact throughout. DTRs: Symmetric and equal throughout. Mobility: Reports independent in room including to bathroom. Results CBC & Chem 7: 07/28/22 06:45 07/28/22 06:45 Labs: Abnormal Lab Results - Last 24 Hours (Table) 07/28/22 07/28/22 Range/Units 06:45 06:45 WBC 14.8 H (3.8-10.6) k/uL RBC 3.89 L (4.30-5.90) m/uL Hgb 11.8 L (13.0-17.5) gm/dL Hct 35.8 L (39.0-53.0) % Neutrophils # 10.8 H (1.3-7.7) k/uL Chloride 111 H (98-107) mmol/L Carbon Dioxide 21 L (22-30) mmol/L BUN 25 H (9-20) mg/dL Calcium 7.6 L (8.4-10.2) mg/dL Delta Bilirubin 0.5 H (0.0-0.2) mg/dL ALT 123 H (4-49) U/L Total Protein 5.2 L (6.3-8.2) g/dL Albumin 2.5 L (3.5-5.0) g/dL Microbiology - Last 24 Hours (Table) 07/24/22 12:52 Blood Culture - Preliminary Blood No Growth after 96 hours Assessment and Plan (1) Altered mental status Current Visit: Yes Status: Acute Code(s): R41.82 - ALTERED MENTAL STATUS, UNSPECIFIED SNOMED Code(s): 852437608 (2) HCAP (healthcare-associated pneumonia) Current Visit: Yes Status: Acute Code(s): J18.9 - PNEUMONIA, UNSPECIFIED ORGANISM SNOMED Code(s): 007386119 (3) Pneumonia Current Visit: Yes Status: Acute Code(s): J18.9 - PNEUMONIA, UNSPECIFIED ORGANISM SNOMED Code(s): 826955318 Plan: Comments and plan: At this time would agree with overall diagnosis of encephalopathy related to legionnaire pneumonia. Patient seems to be improving. At this time PT as patient not required physical assist. OT reports minimal assist only for lower self-care. Patient does report independent in room including bathroom though. We'll continue to follow therapy notes with yourself but currently would not qualify for inpatient rehab.
[2022-07-29 08:05] VITALS: RESP 18
[2022-07-29] MEDS: FAMOTIDINE 20 MG TAB PO SCH (08:21)
[2022-07-29] MEDS: FLUCONAZOLE 100 MG TAB PO SCH (08:21)
[2022-07-29] MEDS: ENOXAPARIN 40 MG/0.4 ML SYRINGE SQ SCH (08:21)
[2022-07-29] MEDS: NYSTATIN 100,000 UNIT/ML SUSP 500,000 UNIT/5 ML CUP PO SCH ×2 (08:21→12:32)
[2022-07-29] MEDS: CALAMINE/ZINC OXIDE LOTION 177 ML BTL TOPICAL SCH (08:22)
[2022-07-29] MEDS ORDERED: LEVOFLOXACIN 750 MG TAB PO SCH (09:00)
[2022-07-29] MEDS: IPRATROPIUM-ALBUTEROL 3 ML NEB INHALATION SCH ×3 (09:25→15:21)
--- NOTE | 2022-07-29 11:59 | P.PN ---
Subjective Progress Note Date: 07/29/22 Principal diagnosis: Fever and pneumonia Patient is a 52-year-old male who was brought into the ER via EMS and police after apparently the patient was noticed to be altered mentally when he was stopped by the police shift commander patient apparently was followed by the police shift commander on the express[place] as the patient was receiving and not pulling immediately but no accident has happened, patient wasn't to be slightly confused and oxygen with a question of possible pneumonia patient also have a CSF examination which came back to be negative. On today's evaluation that is 07/29/2022 the patient continues to be afebrile, the patient is breathing comfortably on room air, the patient denies having any chest pain or shortness of breath the patient cough has decreased in intensity and mostly dry in nature, the patient denies nausea no vomiting no diarrhea patient rash mostly to the upper extremity thigh and upper chest has decreased in intensity, no new rash Objective - Vital Signs Vital signs: Vital Signs Temp 98.2 F 07/29/22 08:00 Pulse 91 07/29/22 08:00 Resp 18 07/29/22 08:00 BP 101/66 07/29/22 08:00 Pulse Ox 99 07/29/22 08:00 FiO2 55 07/26/22 12:00 Intake & Output 07/28/22 07/29/22 07/29/22 18:59 06:59 18:59 Intake Total 10 360 Output Total 40 Balance -40 10 360 Intake: IV 10 Invasive Line 1 10 Oral 360 Output: Post Void Residual 40 Other: Voiding Method Indwelling Catheter Toilet Toilet # Voids 1 1 1 # Bowel Movements 1 1 ABP, PAP, CO, CI - Last Documented Arterial Blood Pressure 107/52 - Exam GENERAL DESCRIPTION: A middle-aged male lying in bed in no distress HEENT: Oral thrush RESPIRATORY SYSTEM: Unlabored breathing , decreased intensity of breath sounds bilaterally HEART: S1 S2 regular rate and rhythm , ABDOMEN: Soft , no tenderness EXTREMITIES: No edema feet - Labs CBC & Chem 7: 07/28/22 06:45 07/28/22 06:45 Labs: Microbiology - Last 24 Hours (Table) 07/24/22 12:52 Blood Culture - Preliminary Blood No Growth after 96 hours Assessment and Plan (1) Pneumonia Current Visit: Yes Status: Acute Code(s): J18.9 - PNEUMONIA, UNSPECIFIED ORGANISM SNOMED Code(s): 343677868 Plan: 1patient is in the hospital mental status changes in this patient who did have evidence of fever and elevated white count, patient has been diagnosed with Legionella pneumonia for which the patient is currently on oral Levaquin to con tinue to finish a 3 week course of therapy 2-rash questionably related to vancomycin which has been discontinued , did have overall improvement in his rash 3elevated white count more likely related to thrush and possible oropharyngeal candidiasis, patient to continue with nystatin swish and swallow and oral Diflucan , no CBC was done today will repeat a CBC tomorrow Time with Patient: Less than 30
--- NOTE | 2022-07-29 12:52 | P.PN ---
Subjective Progress Note Date: 07/29/22 07/24/2022, the patient remains intubated on a mechanical ventilator. Is wide awake and following commands and answering questions while being on propofol and is currently on 50 mcg/kg/m and is also fentanyl at 1 mcg/kg/h. He is very comfortable and symptoms the mechanical ventilator. His chest x-ray is essentially unchanged. Nevertheless, his blood gas from today shows a pH of 7.51 with a pCO2 of 48 and pO2 of 90. Note that the patient is a case of Legionella pneumonia and he had also developed bilateral pleural effusions right more than left. His peak airway pressure today was around 31 with static airway pressure of 20. Based on that, I dropped his FiO2 down to 50%. I also dropped a PEEP down to 8. He does have some respiratory secretions which are being suctioned out. He seems to be quite comfortable. With those adjustments, his pulse ox is ranging between 92 and 93%. He remains hemodynamically stable. Is being diuresed with IV Lasix. Fluid balance has been -1.6 L over the past 24 hours. His serum bicarb is up to 36 and obviously has become alkalotic. The previous cause of 14.2 with a hemoglobin of 10.3. He is receiving enteral feeding for nutritional support in the form of vital HP at the rate of 27 mL an hour. No other active issues for now. He is hemodynamically stable. He is neurologically intact. No agitation. No fever. There have low-grade fever overnight and this morning he is afebrile. patient was reevaluated today on 07/25/22, patient remains in the ICU, anxiety to his nasal cannula, he was extubated yesterday uneventfully, tolerated the extub ation well. Remains on antibiotics for his Legionella pneumonia, his IV fluids at KVO, patient does not seem to be in any distress, however chest x-ray continues to show bilateral air space disease. WBC count is 14.8 hemoglobin is 11.20, electrolytes are normal liver enzymes are borderline elevated. Pro- calcitonin level remains a bit high at 0.43. Reevaluated today on 07/26/2022, patient remains in the ICU, now on 7 L high flow nasal cannula, does not seem to be in any distress, anxiety is being advanced as tolerated. Patient is doing better with incentive spirometry, his IV fluid is at 10 mL per hour. No major hemodynamic issues or arrhythmia overnight, patient will be transferred today out of the ICU to a monitor bed on selective. He did have one episode yesterday of atrial fibrillation lasted about 1 minute, rate was about 150. WBC count today is 13.7 hemoglobin is 11.2. Normal renal profile is normal, blood cultures have been negative so far. Sputum cultures are nondiagnostic. Legionella urine antigen was positive. Reevaluated today on 07/27/22, patient is doing well, he is on 5 L nasal cannula, remains on antibiotics as per infectious disease, patient had a relatively low blood pressure and did not require any treatment, his Lasix today has been placed on hold as the patient seems to be relatively dehydrated. Today he has a relatively normal blood pressure, patient is asymptomatic, no cough no wheezing no shortness of breath. And I plan to transfer the patient out of the ICU to a monitor bed today if possible.WBC and 17.5 hemoglobin is 12. electrolytes are Normal renal profile is normal. Reevaluated today on 07/28/22, patient remains as an overflow in the ICU, remains on 4 L nasal cannula, O2 sats is 97%. Follow-up chest x-ray today showed definite improvement in his bilateral infiltrates, not completely resolved. Clinically the patient is doing much better. And his vancomycin was discontinued, I believe the patient could even be transitioned to oral Levaquin instead of IV Levaquin, he is being followed by infectious disease. WBC DC count today is 14.8 hemoglobin is 11.8 electrolytes are normal renal profile is normal. Patient is relatively asymptomatic. Except he developed a rash that is being treated and the rash was felt to be vancomycin related. He is now on Benadryl. Antibiotics mahan the patient is on Levaquin, he is also on flu conazole for oral thrush The patient is seen today 07/29/2022 in follow-up on the [facility] care unit. He's been up and into the shower with assistance. He denies any worsening shortness of breath, congestion. He is currently maintaining good O2 saturations in the 90s on room air. He's afebrile. Hemodynamically stable. Follow-up sputum culture reveals no growth. Blood culture revealed no growth. CSF fluid revealed no growth. Urine culture revealed no growth. No new labs today. He remains on Levaquin. Continued on Diflucan and nystatin. Objective - Vital Signs Vital signs: Vital Signs Temp 98 F 07/29/22 11:53 Pulse 98 07/29/22 11:53 Resp 18 07/29/22 11:53 BP 129/94 07/29/22 11:53 Pulse Ox 97 07/29/22 11:53 FiO2 55 07/26/22 12:00 Intake & Output 07/28/22 07/29/22 07/29/22 18:59 06:59 18:59 Intake Total 10 360 Output Total 40 Balance -40 10 360 Intake: IV 10 Invasive Line 1 10 Oral 360 Output: Post Void Residual 40 Other: Voiding Method Indwelling Catheter Toilet Toilet # Voids 1 1 1 # Bowel Movements 1 1 ABP, PAP, CO, CI - Last Documented Arterial Blood Pressure 107/52 - Exam GENERAL EXAM: Alert, active, pleasant 52-year-old male, on room air,comfortable in no apparent distress. HEAD: Normocephalic. EYES: Normal reaction of pupils, equal size. NOSE: Clear with pink turbinates. THROAT: No erythema or exudates. NECK: No masses, no JVD. CHEST: No chest wall deformity. LUNGS: Equal air entry with few scattered rhonchi. CVS: S1 and S2 normal with no audible murmur, regular rhythm. ABDOMEN: No hepatosplenomegaly, normal bowel sounds, no guarding or rigidity. SPINE: No scoliosis or deformity SKIN: Fading rash on trunk and legs CENTRAL NERVOUS SYSTEM: No focal deficits, tone is normal in all 4 extremities. EXTREMITIES: There is no peripheral edema. No clubbing, no cyanosis. Peripheral pulses are intact. - Labs CBC & Chem 7: 07/28/22 06:45 07/28/22 06:45 Labs: Microbiology - Last 24 Hours (Table) 07/24/22 12:52 Blood Culture - Preliminary Blood No Growth after 96 hours Assessment and Plan Assessment: Acute hypoxic respiratory failure secondary to legionnaire's disease/pneumonia Extensive bilateral pneumonia, Legionella urine antigen was positive Bilateral pleural effusions, resolved History of alcoholism Plan: The patient was seen and evaluated Currently stable and on room air Remains on Levaquin Remains on Diflucan, nystatin Being evaluated for possible inpatient rehabilitation I have personally seen and examined the patient, performed the documentation and the assessment and plan as written. Number of minutes spent on the visit:10.
[2022-07-29 13:09] VITALS: BMI 28.0
[2022-07-29 16:10] VITALS: BP 111/70; PULSE 92; TEMP 98.7
--- NOTE | 2022-07-30 06:14 | P.DS ---
Providers Date of admission: 07/15/22 21:41 Attending physician: Kristopher Wyatt Consults: 07/15/22 21:37 Consult Physician Routine Consulting Provider: Thierno Case Consult Reason/Comments: AMS, possible CVA Do you want consulting provider notified?: Yes, Notify in am Consult Physician Routine Consulting Provider: Marquez Mead Consult Reason/Comments: HCAP, recent COVID Do you want consulting provider notified?: Yes, Notify in am 07/16/22 11:55 Consult Physician Urgent Consulting Provider: Jefferson Case Consult Reason/Comments: SOB, Tachypnea, Desaturation on RA Do you want consulting provider notified?: Yes 07/28/22 14:08 Consult Physician Routine Consulting Provider: Jaime Williamson Consult Reason/Comments: needs rehab Do you want consulting provider notified?: Yes Primary care physician: Stated None Hospital Course: Diagnoses: Acute bilateral pneumonia, legionnaire pneumonia Acute hypoxic respiratory failure, completely resolved upon discharge Sepsis with fever and leukocytosis 2 small incidental liver cyst requiring evaluation with MRI and computed tomography scan 1 pneumonia resolved. Patient informed and he agrees with the appointments made for him with Dr. Jiménez on 08/11 Generalized weakness, improved oral pharyngeal candidiasis Hospital course: 52-year-old male who presents to the emergency department, via EMS, on July 15. Initially, thought to be a code stroke, but, the neurologist saw the patient may have some sort of [employer] infection, or encephalopathy secondary to an infection elsewhere. Eventually patient found to have bilateral Legionella pneumonia and Legionella antigen was positive in the urine. Patient is kept in the ICU monitored very closely. He has been followed closely by pulmonary/critical care team as well as by infectious disease team and he was treated with Levaquin, fluconazole and nystatin and he showed interval improvement and his oxygen requirement lowered to room air and he does not qualify for excision upon discharge, his symptoms significantly improved with no chest pain or coughing, no other symptoms like dysuria or urgency or vomiting or diarrhea, no abdominal pain, no chest pain, no headache dizziness weakness or numbness. Patient also evaluated for inpatient rehab and he was found not qualified, patient generally was doing well and I talked to the patient and he declined subacute rehab and he wants to go home with home care. Also patient does not qualify for home oxygen. I discussed the case with our infectious disease team and the recommend total of 21 days, and I discussed with the pharmacy already received 13 doses therefore a days of Levaquin is prescribed for him upon discharge as well as nystatin 1 week Eventually patient was cleared for discharge by all consultants pulmonary team, infectious disease team. Problems and management plan were discussed with the patient and he verbalized understanding and acceptance Patient was found stable and can be discharged home in guarded prognosis however he needs follow-up as an outpatient. Patient was instructed to follow up with PCP Dr. corral within one week and patient agrees Patient also was instructed to follow-up with Dr. Jiménez on 08/11 for his stool versus risks including but not limited to cancer explained for him and he verbalized understanding and acceptance and wants to follow-up. Also patient was instructed to follow up with Dr. Mead from infectious disease in 1 week and he agrees as well as last with e commerce marketing analyst Dr. velez in 1-2 weeks and he agrees as well Physical exam Gen: patient is a AAOx3, no distress CVS: S1-S2, RRR, no murmur Lungs: B/L CTA, no wheezing Abdomen: soft, no distention, no tenderness, positive bowel sounds Extremity: no leg edema or induration Time spent more than 35 minutes Patient Condition at Discharge: Stable Plan - Discharge Summary Discharge Rx Participant: Yes New Discharge Prescriptions: New Famotidine [Pepcid] 20 mg PO DAILY 15 Days #30 tab Levofloxacin [Levaquin] 750 mg PO DAILY 8 Days #8 tab Nystatin 100,000 Unit/ml Susp [Mycostatin Oral Susp] 500,000 unit PO QID 7 Days #140 ml Acetaminophen Tab [Tylenol] 650 mg PO Q4H PRN tab PRN Reason: Fever And/ Or Pain Albuterol Inhaler [Ventolin Hfa Inhaler] 2 puff INHALATION TID PRN #8 gm PRN Reason: Sinus Symptoms Discharge Medication List Acetaminophen Tab [Tylenol] 650 mg PO Q4H PRN tab 07/29/22 [Rx] Albuterol Inhaler [Ventolin Hfa Inhaler] 2 puff INHALATION TID PRN #8 gm 07/29/22 [Rx] Famotidine [Pepcid] 20 mg PO DAILY 15 Days #30 tab 07/29/22 [Rx] Levofloxacin [Levaquin] 750 mg PO DAILY 8 Days #8 tab 07/29/22 [Rx] Nystatin 100,000 Unit/ml Susp [Mycostatin Oral Susp] 500,000 unit PO QID 7 Days #140 ml 07/29/22 [Rx] Follow up Appointment(s)/Referral(s): Panchito Corral [Other] - 1 Week (call to schedule tell them you were discharged from [facility] 07/29 for AMS, HCAP, ) [facility] [NON-STAFF] - (they will call you to schedule) Kassidy Jiménez MD [STAFF PHYSICIAN] - 08/11/22 3:00 pm Jefferson Case DO [Doctor of Osteopathic Medicine] - 1 Week (call to schedule tell them you were discharged from [facility] 07/29 for AMS, HCAP, ) Marquez Mead MD [STAFF PHYSICIAN] - 1 Week (call to schedule tell them you were discharged from [facility] 07/29 for AMS, HCAP, ) Patient Instructions/Handouts: Oral Candidiasis (ED), Pneumonia (DC) Activity/Diet/Wound Care/Special Instructions: heart healthy diet activity is restricted till you see your doctor please be advised dr. mead from infectious disease would like to see you in his office in one week, please call to make appointment as instructed Discharge Disposition: HOME WITH HOME HEALTH SERVICES
== END 2022-07-29 18:23 | disposition home health service (06) | DRG 870 ==
LOC: EC 16:18 → 3SCARD 21:41 → 2SICU 07-16 13:58 → 3SCARD 07-28 12:46
PROVIDERS: ADMIT Family Medicine; ATTEND Family Medicine
PROC: 0BH18EZ Insertion of Endotracheal Airway into Trachea, Via Natural or Artificial Opening Endoscopic (ICD-10-PCS; principal; 2022-07-17)
PROC: 5A1955Z Respiratory Ventilation, Greater than 96 Consecutive Hours (ICD-10-PCS; principal; 2022-07-17)
PROC: 0DH67UZ Insertion of Feeding Device into Stomach, Via Natural or Artificial Opening (ICD-10-PCS; 2022-07-17)
PROC: 0B958ZZ Drainage of Right Middle Lobe Bronchus, Via Natural or Artificial Opening Endoscopic (ICD-10-PCS; 2022-07-18)
PROC: 3E0G76Z Introduction of Nutritional Substance into Upper GI, Via Natural or Artificial Opening (ICD-10-PCS; 2022-07-18)
PROC: 4A133J1 Monitoring of Arterial Pulse, Peripheral, Percutaneous Approach (ICD-10-PCS; 2022-07-18)
PROC: 03HY32Z Insertion of Monitoring Device into Upper Artery, Percutaneous Approach (ICD-10-PCS; 2022-07-18)
PROC: 4A133B1 Monitoring of Arterial Pressure, Peripheral, Percutaneous Approach (ICD-10-PCS; 2022-07-18)
PROC: 02HV33Z Insertion of Infusion Device into Superior Vena Cava, Percutaneous Approach (ICD-10-PCS; 2022-07-18)
PROC: 3E043XZ Introduction of Vasopressor into Central Vein, Percutaneous Approach (ICD-10-PCS; 2022-07-18)
DX: A41.89 Other specified sepsis (principal); A48.1 Legionnaires' disease; J96.01 Acute respiratory failure with hypoxia; G92.8 Other toxic encephalopathy; J96.02 Acute respiratory failure with hypercapnia; B37.0 Candidal stomatitis; B37.89 Other sites of candidiasis; E87.1 Hypo-osmolality and hyponatremia; E87.3 Alkalosis; R47.01 Aphasia; J90 Pleural effusion, not elsewhere classified; E86.0 Dehydration; R65.20 Severe sepsis without septic shock; E87.6 Hypokalemia; Y95 Nosocomial condition; F10.21 Alcohol dependence, in remission; R26.9 Unspecified abnormalities of gait and mobility; K76.89 Other specified diseases of liver; Z20.822 Contact with and (suspected) exposure to COVID-19; Z28.310 Unvaccinated for COVID-19; R51.9 Headache, unspecified; Z86.16 Personal history of COVID-19; G47.00 Insomnia, unspecified; N28.9 Disorder of kidney and ureter, unspecified; N20.0 Calculus of kidney; R21 Rash and other nonspecific skin eruption; I48.91 Unspecified atrial fibrillation; Z60.2 Problems related to living alone; Z71.3 Dietary counseling and surveillance
CPT/HCPCS: 31624; 36415; 36600; 70450; 70496; 70498; 70553; 71045; 71046; 71250; 76700; 80048; 80053; 80076; 80202; 80306; 81001; 82040; 82042; 82140; 82164; 82330; 82607; 82746; 82784; 82803; 82805; 82945; 83036; 83605; 83735; 83873; 83916; 84132; 84145; 84157; 84439; 84443; 84478; 84484; 85025; 85027; 85379; 85610; 85652; 85730; 86140; 86592; 86780; 87040; 87070; 87086; 87205; 87252; 87281; 87390; 87449; 87496; 87498; 87529; 87636; 87798; 88108; 88305; 89050; 93005; 94002; 94003; 94640; 94760; 95816; 96361; 96365; 96366; 96367; 96375; 99291